=== PATIENT | male | born 1940 | race Caucasian/White ===

== ENCOUNTER 2018-05-25 08:02 | Inpatient (IN) ==
[2018-05-25] MEDS ORDERED: ALBUT/IPRATROP 3MG/0.5MG NEB 3 ML VIAL INH STA (08:24)
[2018-05-25] MEDS ORDERED: methylPREDNISolone 125 MG/2 ML VIAL IV STA (08:24)
[2018-05-25] MEDS ORDERED: NITROGLYCERIN 2% OINTMENT 30GM TUBE EXT STA (08:24)
[2018-05-25 08:40] LABS: Basophils # (auto) 0.04 K/uL (0-0.2); Basophils % (auto) 0.5 %; Eosinophils # (auto) 0.26 K/uL (0-0.5); Eosinophils % (auto) 3.1 %; Hematocrit (blood only) 44.3 % (42-52); Hemoglobin 13.5 g/dL (14.0-18.0); Immature Granulocytes # (auto) 0.02 K/uL (0.00-0.02); Immature Granulocytes % (auto) 0.2 %; Lymphocytes # (auto) 0.65 K/uL (1.2-3.4); Lymphocytes % (auto) 7.7 %; Mean Corpuscular Hgb Conc 30.5 g/dL (32-36); Mean Corpuscular Volume 95.1 fL (80-100); Mean Platelet Volume 11.7 fL (7.4-10.4); Monocytes % (auto) 7.1 %; Neutrophils # (auto) 6.83 K/uL (1.4-6.5); Neutrophils % (auto) 81.4 %; Platelet Count 156 K/uL (130-400); RDW Coefficient of Variation 17.5 % (11.5-14.5); RDW Standard Deviation 60.4 fL (36.4-46.3); Red Blood Count 4.66 M/uL (4.7-6.1)
--- NOTE | 2018-05-25 08:42 | Emergency Department Note ---
Entered by Andrew Navarro acting as a scribe for ED Provider Note CHIEF COMPLAINT: Worsening shortness of breath. HISTORY OF PRESENT ILLNESS: The patient is a 77 year old male who presents to the Emergency Room with complaints of worsening shortness of breath over the past 2 weeks. The patient presents with his who states that he was recently diagnosed with pneumonia , but has worsened since starting Augmentin. She notes that he cannot walk a short distance without becoming short of breath. EMS state that he is normally on 2L of oxygen at home, and was 90% on 3L upon their arrival. The adds that his lower extremity swelling is better than usual today, but adds that his abdomen looks signficantly bloated. There has not been any chest pain or fevers. He is coughing persistently, and the adds that there is blood in the plegm that the cough is producing. Pt denies LOC, headache, diaphoresis, neck pain, nausea, vomiting, back pain, melena, hematochezia, urinary symptoms, numbness, weakness, lymphadenopathy, rash, or other complaints. REVIEW OF SYSTEMS: See HPI for pertinent positives and negatives. A total of ten systems were reviewed and were otherwise negative. PMHx/PSHx: A-fib CAD cardiomyopathy CHF HTN LBBB Fluid overload Dyslipidemia Diabetes CKD Pulmonary Edema Liver mass Coronary artery bypass graft Anticoagulated on Coumadin SOCIAL HISTORY: Patient lives at home. PHYSICAL EXAM: GENERAL: Awake, alert, increased work of breathing on exam. HENT: Normocephalic, atraumatic. Oropharynx unremarkable. EYES: Left pupil is surgically altered. Normal conjunctiva. Sclera non-icteric. NECK: Inspection normal. Non-tender. Supple. No nuchal rigidity. FROM. No masses. RESPIRATORY: Increased work of breathing. Bilateral rales and wheezing on exam. CARDIAC: Normal rate. Irregular rhythm. No murmurs. No rubs. Extremities warm and well perfused. Pulses equal. No JVD. GI: Mildly distended. No tenderness to palpation. No rebound or guarding. No masses. RECTAL: Deferred. MUSCULOSKELETAL: Atraumatic. Chest examination reveals no tenderness. The back is symmetrical on inspection without obvious abnormality. There is no CVA tenderness to palpation. No joint edema. LOWER EXTREMITIES: Calves are equal size bilaterally and non-tender. 1+ bilateral edema. No discoloration. NEURO: Normal sensorium. No sensory or motor deficits noted. SKIN: No rash or jaundice noted. EMERGENCY DEPARTMENT COURSE: 811: Past medical records reviewed. The patient was evaluated in room B9, and a complete history and physical examination were performed. 46: I checked on the patient he is feeling better. 922: I reviewed the patient's case with Dr. Downey - [facility]. He suggests admitting the patient to medicine. 924: I reviewed the patient's case with Denise Bates [facility] Hospitalist [place]. She will evaluate the patient for further management. MEDICAL DECISION MAKING: Triage Nursing notes reviewed. The patient's presentation and history were concerning for shortness of breath and recent diagnosis of pneumonia. Etiologies such as pneumonia, reactive airway disease, CHF, cardiac ischemia, pulmonary embolism, pneumothorax, COPD, musculoskeletal, infections, gastrointestinal, as well as others were entertained. The patient had lower extremity edema, abdominal distention, and shortness of breath. He was requiring high flow supplemental oxygen to maintain saturations in the mid 90s. He had increased work of breathing. Record review indicates a similar presentation back in February 2018. He was admitted for heart failure. The patient was given a DuoNeb, Solu-Medrol due to his wheezing. He received Nitropaste. He had aspirin prehospital. His ECG did not reveal any significant changes. He was rate controlled in A. fib. Chest x-ray was performed. Blood work and flu testing was performed. The patient was found to have significant CHF on chest x-ray. This would fit with his examination. The patient was placed on BiPAP. He had significant improvement of his work of breathing. The patient's blood pressure dropped to a normal level. He felt much better. I did consult with cardiology. Dr. Downey recommended initiation of higher dose IV Lasix. The patient was given 60 mg of IV Lasix. Patient and were educated. Consultation was made with the [facility] Hospitalist service the patient was admitted for further treatment. IMPRESSION: Acute CHF on Bi-Pap PLAN: Admitted I have personally spent greater than 32 minutes of critical care time in the direct management of this patient. This includes bedside care, interpretation of diagnostic studies, and testing, discussion with consultants, patient, and family members, and other required patient management activities. This 32 minutes is in excess of all separately billable procedures. The scribe's documentation has been prepared under my direction and personally reviewed by me in its entirety. I confirm that the note above accurately reflects all work, treatment, procedures, and medical decision making performed by me. Impression & Plan Acute CHF Past Med/Surg History Medical History Atrial fibrillation (Chronic) CAD (coronary artery disease) (Chronic) Ischemic cardiomyopathy (Chronic) Echo 02/27/18 - LVEF 35 - 45% with mild to mod hypokinesis Chronic systolic heart failure (Chronic) Chronic diastolic heart failure (Chronic) HTN (hypertension) (Chronic) LBBB (left bundle branch block) (Chronic) Depression (Chronic) Dyslipidemia (Chronic) Diabetes mellitus, type II (Chronic) CKD (chronic kidney disease), stage III (Chronic) Anticoagulated on Coumadin (Chronic) Hiatal hernia (Chronic) Morbid obesity (Chronic) Uses hearing aid (Chronic) Glaucoma 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 Surgical History History of cataract removal with insertion of prosthetic lens (Chronic) History of cholecystectomy (Chronic) History of coronary artery bypass graft (Chronic) Family History Other HTN (hypertension) Lymphoma Stroke Social History Current Living Situation: Spouse Other Information That Helps Us Care for You: No Feels Safe at Home: Yes Safety Concerns: Feels Safe At This Time Smoking Status: Never smoker Do You Dip or Chew Tobacco: No Second Hand Exposure: No Tobacco Cessation Education Requested by Patient: No Hx Alcohol Use: No Hx Substance Use: No Beliefs That Will Affect Care: None Preferred Language: Mohawk Communication Ability: Effective Health Diagnostics Teacher Required: No Results & Data Vital Signs Vital Signs - 24 hr 05/25/18 08:09 05/25/18 08:12 05/25/18 08:25 Temperature 36.8 C Temperature Source Oral Sepsis Recent Fever Within 48 Hours No Sepsis Action Taken by Nursing No Action Required Pulse Rate 102 H 94 H 102 H Pulse Rate [Finger] Respiratory Rate 27 H 28 H 13 Respiratory Effort / Characteristics Labored Short of Breath Respiratory Depth Respiratory Pattern Blood Pressure 158/97 H 158/97 H Blood Pressure [Left Arm] Blood Pressure Mean 117 117 Blood Pressure Mean [Left Arm] Blood Pressure Position Sitting Blood Pressure Position [Left Arm] Pulse Oximetry 99 100 100 Oxygen Delivery Method Non-rebreather Oxygen Flow Rate 15 Fraction of Inspired Oxygen SaO2/FiO2 Ratio 05/25/18 08:30 05/25/18 08:33 05/25/18 09:00 Temperature Temperature Source Sepsis Recent Fever Within 48 Hours Sepsis Action Taken by Nursing Pulse Rate 81 78 72 Pulse Rate [Finger] Respiratory Rate 24 26 H 20 Respiratory Effort / Characteristics Respiratory Depth Respiratory Pattern Blood Pressure 132/85 Blood Pressure [Left Arm] Blood Pressure Mean 100 Blood Pressure Mean [Left Arm] Blood Pressure Position Blood Pressure Position [Left Arm] Pulse Oximetry 100 100 Oxygen Delivery Method Oxygen Flow Rate Fraction of Inspired Oxygen SaO2/FiO2 Ratio 05/25/18 09:01 05/25/18 09:02 05/25/18 09:05 Temperature Temperature Source Sepsis Recent Fever Within 48 Hours Sepsis Action Taken by Nursing Pulse Rate 79 73 Pulse Rate [Finger] 76 Respiratory Rate 20 19 21 Respiratory Effort / Characteristics Spontaneous Respiratory Depth Respiratory Pattern Blood Pressure 113/72 Blood Pressure [Left Arm] Blood Pressure Mean 85 Blood Pressure Mean [Left Arm] Blood Pressure Position Blood Pressure Position [Left Arm] Pulse Oximetry 100 98 100 Oxygen Delivery Method BiPAP BiPAP Oxygen Flow Rate Fraction of Inspired Oxygen 95 SaO2/FiO2 Ratio 05/25/18 09:06 05/25/18 09:30 05/25/18 09:31 Temperature Temperature Source Sepsis Recent Fever Within 48 Hours Sepsis Action Taken by Nursing Pulse Rate 76 72 65 Pulse Rate [Finger] Respiratory Rate 21 19 19 Respiratory Effort / Characteristics Spontaneous Respiratory Depth Normal Respiratory Pattern Regular Blood Pressure 112/65 Blood Pressure [Left Arm] Blood Pressure Mean 80 Blood Pressure Mean [Left Arm] Blood Pressure Position Blood Pressure Position [Left Arm] Pulse Oximetry 100 96 98 Oxygen Delivery Method Oxygen Flow Rate Fraction of Inspired Oxygen 35 SaO2/FiO2 Ratio 05/25/18 09:56 05/25/18 10:00 05/25/18 10:15 Temperature Temperature Source Sepsis Recent Fever Within 48 Hours Sepsis Action Taken by Nursing Pulse Rate 74 Pulse Rate [Finger] Respiratory Rate 18 Respiratory Effort / Characteristics Spontaneous Accessory Muscle Use Labored Short of Breath SOB on Exertion Respiratory Depth Shallow Respiratory Pattern Tachypnea Blood Pressure 145/74 H Blood Pressure [Left Arm] 117/84 Blood Pressure Mean 97 Blood Pressure Mean [Left Arm] 95 Blood Pressure Position Blood Pressure Position [Left Arm] Pulse Oximetry 100 99 Oxygen Delivery Method BiPAP Oxygen Flow Rate Fraction of Inspired Oxygen 35 SaO2/FiO2 Ratio 285 05/25/18 11:17 05/25/18 11:38 05/25/18 11:51 Temperature 36.4 C L Temperature Source Axillary Sepsis Recent Fever Within 48 Hours Sepsis Action Taken by Nursing Pulse Rate 72 Pulse Rate [Finger] 80 Respiratory Rate 20 20 Respiratory Effort / Characteristics Short of Breath SOB on Exertion Respiratory Depth Shallow Respiratory Pattern Regular Blood Pressure 149/114 H Blood Pressure [Left Arm] 155/82 H Blood Pressure Mean Blood Pressure Mean [Left Arm] 106 Blood Pressure Position Blood Pressure Position [Left Arm] Sitting Pulse Oximetry 100 99 Oxygen Delivery Method BiPAP BiPAP BiPAP Oxygen Flow Rate Fraction of Inspired Oxygen 30 SaO2/FiO2 Ratio 05/25/18 12:02 05/25/18 15:50 Temperature Temperature Source Sepsis Recent Fever Within 48 Hours Sepsis Action Taken by Nursing Pulse Rate 87 77 Pulse Rate [Finger] Respiratory Rate Respiratory Effort / Characteristics Short of Breath SOB on Exertion Respiratory Depth Respiratory Pattern Regular Blood Pressure Blood Pressure [Left Arm] Blood Pressure Mean Blood Pressure Mean [Left Arm] Blood Pressure Position Blood Pressure Position [Left Arm] Pulse Oximetry Oxygen Delivery Method BiPAP Oxygen Flow Rate Fraction of Inspired Oxygen SaO2/FiO2 Ratio Home Medications Current Medication List: was personally reviewed by me Laboratory Data Attestation: I reviewed the patient's lab results. Result diagrams: 05/25/18 08:25 05/25/18 08:25 Lab Results 05/25/18 05/25/18 05/25/18 Range/Units 08:25 08:25 08:25 WBC 8.40 (4.8-10.8) K/uL RBC 4.66 L (4.7-6.1) M/uL Hgb 13.5 L (14.0-18.0) g/dL Hct 44.3 (42-52) % MCV 95.1 (80-100) fL MCH 29.0 (25-34) pg MCHC 30.5 L (32-36) g/dL RDW Std Deviation 60.4 H (36.4-46.3) fL RDW Coeff of Abhinav 17.5 H (11.5-14.5) % Plt Count 156 (130-400) K/uL MPV 11.7 H (7.4-10.4) fL Immature Gran % (Auto) 0.2 % Neut % (Auto) 81.4 % Lymph % (Auto) 7.7 % [place] % (Auto) 7.1 % Eos % (Auto) 3.1 % Baso % (Auto) 0.5 % Immature Gran # (Auto) 0.02 (0.00-0.02) K/uL Neut # (Auto) 6.83 H (1.4-6.5) K/uL Lymph # (Auto) 0.65 L (1.2-3.4) K/uL [place] # (Auto) 0.60 H (0.11-0.59) K/uL Eos # (Auto) 0.26 (0-0.5) K/uL Baso # (Auto) 0.04 (0-0.2) K/uL PT 43.3 H (9.0-12.0) Seconds INR 4.7 H (0.9-1.1) APTT 40.0 H (21.0-31.0) Seconds PTT Ratio 1.5 ABG pH (7.35-7.45) ABG pCO2 (35-46) mmHg ABG pO2 (80-95) mm/Hg ABG HCO3 (19-24) mmol/L ABG O2 Saturation (90-95) % ABG Base Excess (-9-1.8) mEq/L Joshua Test (Pos) Barometric Pressure mm/Hg Oxygen Given Sodium 137 (136-145) mmol/L Potassium 4.8 (3.5-5.1) mmol/L Chloride 102 (98-107) mmol/L Carbon Dioxide 35 H (21-32) mmol/L Anion Gap 0 L (3-11) BUN 31 H (7-18) mg/dl Creatinine 1.59 H (0.6-1.4) mg/dl Est Cr Clr Drug Dosing 55.9 ml/min Est GFR ( Amer) 48.2 Est GFR (Non-Af Amer) 41.6 BUN/Creatinine Ratio 19.2 (10-20) Glucose 141 H (70-99) mg/dl POC Glucose (70-99) Calcium 8.7 (8.5-10.1) mg/dl Magnesium 2.6 H (1.8-2.4) mg/dl Total Bilirubin 0.9 (0.2-1) mg/dl AST 38 H (15-37) U/L ALT 36 (12-78) U/L Alkaline Phosphatase 101 (45-117) U/L Troponin I < 0.015 (0-0.045) ng/ml NT-Pro-B Natriuret Pep 810 (0-1800) pg/ml Total Protein 9.2 H (6.4-8.2) gm/dl Albumin 3.7 (3.4-5.0) gm/dl Globulin 5.5 H (2.5-4.0) gm/dl Albumin/Globulin Ratio 0.7 L (0.9-2) Urine Color Urine Appearance (Clear) Urine pH (4.5-7.5) Ur Specific [place] (1.000-1.030) Urine Protein (Negative) Urine Glucose (UA) (Negative) Urine Ketones (Negative) Urine Blood (Negative) Urine Nitrite (Negative) Urine Bilirubin (Negative) Urine Urobilinogen (Negative) Ur Leukocyte Esterase (Negative) Urine WBC (Auto) (0-5) /hpf Urine RBC (Auto) (0-4) /hpf U Hyaline Cast (Auto) (0-5) /lpf U Epithel Cells (Auto) (0-5) /lpf Urine Bacteria (Auto) (Negative) Influenza Type A (PCR) (Neg) Influenza Type B (PCR) (Neg) 05/25/18 05/25/18 05/25/18 Range/Units 08:27 10:40 10:55 WBC (4.8-10.8) K/uL RBC (4.7-6.1) M/uL Hgb (14.0-18.0) g/dL Hct (42-52) % MCV (80-100) fL MCH (25-34) pg MCHC (32-36) g/dL RDW Std Deviation (36.4-46.3) fL RDW Coeff of Abhinav (11.5-14.5) % Plt Count (130-400) K/uL MPV (7.4-10.4) fL Immature Gran % (Auto) % Neut % (Auto) % Lymph % (Auto) % [place] % (Auto) % Eos % (Auto) % Baso % (Auto) % Immature Gran # (Auto) (0.00-0.02) K/uL Neut # (Auto) (1.4-6.5) K/uL Lymph # (Auto) (1.2-3.4) K/uL [place] # (Auto) (0.11-0.59) K/uL Eos # (Auto) (0-0.5) K/uL Baso # (Auto) (0-0.2) K/uL PT (9.0-12.0) Seconds INR (0.9-1.1) APTT (21.0-31.0) Seconds PTT Ratio ABG pH 7.35 (7.35-7.45) ABG pCO2 59 H (35-46) mmHg ABG pO2 113 H (80-95) mm/Hg ABG HCO3 31 H (19-24) mmol/L ABG O2 Saturation 98.0 H (90-95) % ABG Base Excess 4.0 H (-9-1.8) mEq/L Joshua Test Pos (Pos) Barometric Pressure 731.0 mm/Hg Oxygen Given 30% Sodium (136-145) mmol/L Potassium (3.5-5.1) mmol/L Chloride (98-107) mmol/L Carbon Dioxide (21-32) mmol/L Anion Gap (3-11) BUN (7-18) mg/dl Creatinine (0.6-1.4) mg/dl Est Cr Clr Drug Dosing ml/min Est GFR ( Amer) Est GFR (Non-Af Amer) BUN/Creatinine Ratio (10-20) Glucose (70-99) mg/dl POC Glucose (70-99) Calcium (8.5-10.1) mg/dl Magnesium (1.8-2.4) mg/dl Total Bilirubin (0.2-1) mg/dl AST (15-37) U/L ALT (12-78) U/L Alkaline Phosphatase (45-117) U/L Troponin I (0-0.045) ng/ml NT-Pro-B Natriuret Pep (0-1800) pg/ml Total Protein (6.4-8.2) gm/dl Albumin (3.4-5.0) gm/dl Globulin (2.5-4.0) gm/dl Albumin/Globulin Ratio (0.9-2) Urine Color Yellow Urine Appearance Clear (Clear) Urine pH 7.0 (4.5-7.5) Ur Specific [place] 1.014 (1.000-1.030) Urine Protein Negative (Negative) Urine Glucose (UA) Negative (Negative) Urine Ketones Negative (Negative) Urine Blood Trace H (Negative) Urine Nitrite Negative (Negative) Urine Bilirubin Negative (Negative) Urine Urobilinogen Negative (Negative) Ur Leukocyte Esterase Negative (Negative) Urine WBC (Auto) 1-5 (0-5) /hpf Urine RBC (Auto) 5-10 H (0-4) /hpf U Hyaline Cast (Auto) 1-5 (0-5) /lpf U Epithel Cells (Auto) 10-20 H (0-5) /lpf Urine Bacteria (Auto) Negative (Negative) Influenza Type A (PCR) Neg for Influ A (Neg) Influenza Type B (PCR) Neg for Influ B (Neg) 05/25/18 Range/Units 12:48 WBC (4.8-10.8) K/uL RBC (4.7-6.1) M/uL Hgb (14.0-18.0) g/dL Hct (42-52) % MCV (80-100) fL MCH (25-34) pg MCHC (32-36) g/dL RDW Std Deviation (36.4-46.3) fL RDW Coeff of Abhinav (11.5-14.5) % Plt Count (130-400) K/uL MPV (7.4-10.4) fL Immature Gran % (Auto) % Neut % (Auto) % Lymph % (Auto) % [place] % (Auto) % Eos % (Auto) % Baso % (Auto) % Immature Gran # (Auto) (0.00-0.02) K/uL Neut # (Auto) (1.4-6.5) K/uL Lymph # (Auto) (1.2-3.4) K/uL [place] # (Auto) (0.11-0.59) K/uL Eos # (Auto) (0-0.5) K/uL Baso # (Auto) (0-0.2) K/uL PT (9.0-12.0) Seconds INR (0.9-1.1) APTT (21.0-31.0) Seconds PTT Ratio ABG pH (7.35-7.45) ABG pCO2 (35-46) mmHg ABG pO2 (80-95) mm/Hg ABG HCO3 (19-24) mmol/L ABG O2 Saturation (90-95) % ABG Base Excess (-9-1.8) mEq/L Joshua Test (Pos) Barometric Pressure mm/Hg Oxygen Given Sodium (136-145) mmol/L Potassium (3.5-5.1) mmol/L Chloride (98-107) mmol/L Carbon Dioxide (21-32) mmol/L Anion Gap (3-11) BUN (7-18) mg/dl Creatinine (0.6-1.4) mg/dl Est Cr Clr Drug Dosing ml/min Est GFR ( Amer) Est GFR (Non-Af Amer) BUN/Creatinine Ratio (10-20) Glucose (70-99) mg/dl POC Glucose 147 H (70-99) Calcium (8.5-10.1) mg/dl Magnesium (1.8-2.4) mg/dl Total Bilirubin (0.2-1) mg/dl AST (15-37) U/L ALT (12-78) U/L Alkaline Phosphatase (45-117) U/L Troponin I (0-0.045) ng/ml NT-Pro-B Natriuret Pep (0-1800) pg/ml Total Protein (6.4-8.2) gm/dl Albumin (3.4-5.0) gm/dl Globulin (2.5-4.0) gm/dl Albumin/Globulin Ratio (0.9-2) Urine Color Urine Appearance (Clear) Urine pH (4.5-7.5) Ur Specific [place] (1.000-1.030) Urine Protein (Negative) Urine Glucose (UA) (Negative) Urine Ketones (Negative) Urine Blood (Negative) Urine Nitrite (Negative) Urine Bilirubin (Negative) Urine Urobilinogen (Negative) Ur Leukocyte Esterase (Negative) Urine WBC (Auto) (0-5) /hpf Urine RBC (Auto) (0-4) /hpf U Hyaline Cast (Auto) (0-5) /lpf U Epithel Cells (Auto) (0-5) /lpf Urine Bacteria (Auto) (Negative) Influenza Type A (PCR) (Neg) Influenza Type B (PCR) (Neg) Administered Medications Aspirin (Ecotrin Ectab) 81 mg PO QDL [facility] Stop: 06/24/18 11:35 Last Admin: 05/25/18 12:40 Dose: 81 mg Metoprolol Succinate (Toprol Xl) 25 mg PO QDL [facility] Stop: 06/24/18 11:59 Last Admin: 05/25/18 12:40 Dose: 25 mg Miscellaneous (Order Awaiting Action) 1 ea N/A QS [facility] Stop: 06/24/18 11:59 Last Admin: 05/25/18 12:42 Dose: Not Given Nitroglycerin (Nitro-Bid 2%) 0.5 inch EXT Q6 [facility] Stop: 06/24/18 11:59 Last Admin: 05/25/18 12:41 Dose: 0.5 inch Discontinued Medications Albuterol (Duoneb) 3 ml INH NOW STA Stop: 05/25/18 08:25 Last Admin: 05/25/18 08:49 Dose: 3 ml Furosemide (Lasix) 60 mg IV NOW STA Stop: 05/25/18 09:26 Last Admin: 05/25/18 10:16 Dose: 60 mg Insulin Aspart (Novolog Flexpen) 0 units SC ACHS [facility] Stop: 06/24/18 11:35 Last Admin: 05/25/18 12:56 Dose: Not Given Methylprednisolone (Solumedrol) 125 mg IV NOW STA Stop: 05/25/18 08:25 Last Admin: 05/25/18 08:49 Dose: 125 mg Nitroglycerin (Nitro-Bid 2%) 0.5 inch EXT NOW STA Stop: 05/25/18 08:25 Last Admin: 05/25/18 08:48 Dose: 1 inch Imaging Data Attestation: I personally reviewed and interpreted this imaging study as follows : Radiologist's Impression: XR chest 1V portable HISTORY: 77 years-old Male Dyspnea acute shortness of breath COMPARISON: Chest radiographs 02/26/2018 TECHNIQUE: Portable AP view of the chest FINDINGS: Cardiac silhouette is enlarged. Prior median sternotomy. No pneumothorax. Small bilateral pleural effusions with bibasilar opacities. Bilateral mixed interstitial and alveolar opacities are noted with pulmonary vascular congestion. Degenerative changes of the shoulders and spine. IMPRESSION: 1. Cardiomegaly with pulmonary edema. 2. Small bilateral pleural effusions. 3. Bibasilar opacities, likely reflective of atelectasis. The above report was generated using voice recognition software. It may contain grammatical, syntax or spelling errors. Electronically signed by: Helio Poe M.D. 05/25/2018 8:48 AM ECG Data Attestation: I personally reviewed and interpreted this ECG as follows: Indication: SOB/dyspnea Rate (beats per minute): 91 Rhythm: atrial fibrillation Findings: + LBBB; no PAC and no PVC Comparison ECG Date: from (02/27/2018) Change: no significant change Blood Pressure Blood Pressure Findings: Elevated blood pressure Blood Pressure Disposition: further management by hospitalist Discharge Plan Visit Data *Final* Discharge Date/Time: 05/25/18 11:17 Chief Complaint: Shortness of Breath/Dyspnea Stated Complaint: afib/sob ED Provider: Demetris Gale Discharge Problem: Acute CHF Patient Disposition: Admitted As Inpatient Discharge Instructions Interventions: ED Discharge Assessment Last Done: 05/25/18 11:17 The scribe's documentation has been prepared under my direction and personally reviewed by me in its entirety. I confirm that the note above accurately reflects all work, treatment, procedures, and medical decision making performed by me.
--- NOTE | 2018-05-25 08:49 | XRay Report ---
XR chest 1V portable HISTORY: 77 years-old Male Dyspnea acute shortness of breath COMPARISON: Chest radiographs 02/26/2018 TECHNIQUE: Portable AP view of the chest FINDINGS: Cardiac silhouette is enlarged. Prior median sternotomy. No pneumothorax. Small bilateral pleural eff usions with bibasilar opacities. Bilateral mixed interstitial and alveolar opacities are noted with p ulmonary vascular congestion. Degenerative changes of the shoulders and spine. IMPRESSION: 1. Cardiomegaly with pulmonary edema. 2. Small bilateral pleural effusions. 3. Bibasilar opacities, likely reflective of atelectasis. The above report was generated using voice recognition software. It may contain grammatical, syntax o r spelling errors. Electronically signed by: Helio Poe M.D. 05/25/2018 8:48 AM
[2018-05-25 09:04] LABS: Alanine Aminotransferase 36 U/L (12-78); Albumin Level 3.7 gm/dl (3.4-5.0); Anion Gap 0 (3-11); Aspartate Aminotransferase 38 U/L (15-37); BUN Creatinine Ratio 19.2 (10-20); Blood Urea Nitrogen 31 mg/dl (7-18); Calcium 8.7 mg/dl (8.5-10.1); Carbon Dioxide 35 mmol/L (21-32); Chloride 102 mmol/L (98-107); Creatinine Clr Calc Pharmacy 55.9 ml/min; Est GFR (African American) 48.2; Est GFR (Non-African American) 41.6; Glucose 141 mg/dl (70-99); Magnesium 2.6 mg/dl (1.8-2.4); Potassium 4.8 mmol/L (3.5-5.1); Sodium 137 mmol/L (136-145)
[2018-05-25 09:09] LABS: Albumin Globulin Ratio 0.7 (0.9-2); Alkaline Phosphatase 101 U/L (45-117); Bilirubin,Total 0.9 mg/dl (0.2-1); Globulin 5.5 gm/dl (2.5-4.0); NT Pro B Type Natriuretic Pept 810 pg/ml (0-1800); Total Protein 9.2 gm/dl (6.4-8.2); Troponin I < 0.015 ng/ml (0-0.045)
[2018-05-25 09:18] LABS: Partial Thromboplastin Ratio 1.5; Prothrombin Time 43.3 Seconds (9.0-12.0)
[2018-05-25 09:25] LABS: Influenza A virus by PCR Neg for Influ A (Neg); Influenza B virus by PCR Neg for Influ B (Neg)
[2018-05-25] MEDS ORDERED: FUROSEMIDE 40 MG/4 ML VIAL IV STA (09:25)
[2018-05-25 09:26] LABS: INR 4.7 (0.9-1.1)
--- NOTE | 2018-05-25 10:37 | History & Physical Report ---
Date of Service May 25, 2018 Assessment & Plan (1) Acute on chronic systolic (congestive) heart failure: Pt is 77 y/o M with PMH chronic systolic heart failure, ischemic cardiomyopathy EF: 35-40%, atrial fibrillation on Coumadin, CAD s/p CABG x 4 in 2011, LBBB, CKD III, obesity, HTN, dyslipidemia, T2DM, presented to ER with complaint of shortness of breath x 2-3 weeks. En route patient was noted to be hypoxic; therefore placed on high flow O2 via NC 15L. On arrival was placed on Bipap for resp support. In ED patient wbc 8.4, h/h 13.5/44.3, plt 156, Na 137, K 4.8, bun 31, cr 1.59, mag 2.6, BNP 810. CXR consistent with pulm edema and b/l pleural effusion. Influenza negative. 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 (2) Acute respiratory failure with hypoxia: -continue Bipap support for now -monitor resp status (3) Atrial fibrillation: -rate controlled with metoprolol -anticoagulated with warfarin, supra therapeutic -current warfarin regimen 10mg MF and 7.5mg all other days -hold warfarin and repeat INR in a.m. (4) CAD (coronary artery disease): -hx of CABG x 4 in 2011 -continue ASA, statin, BB, Imdur -Troponin < 0.04 (5) HTN (hypertension): -blood pressure elevated upon admission secondary to A/C CHF -Given 60mg IV lasix in ED -continue IV lasix, topical nitrates -continue hydralazine, BB, Imdur -monitor (6) Diabetes mellitus, type II: -A1C 6.2 on 01/31/18 -hold glipizide -novolog ISS per protocol -if bgm consistently >180 add lantus coverage (7) Dyslipidemia: -continue high intensity statin therapy (8) CKD (chronic kidney disease), stage III: -baseline cr 1.7-1.9 -renal function stable at 1.5 -monitor electrolytes (9) Morbid obesity: -Dietary and lifestyle modifications recommended (10) Depression: -mood stable continue zoloft (11) DVT prophylaxis: -on warfarin, INR 4.7 -hold warfarin, repeat INR Disposition: to be determined Follow up: PCP Dr. Matias and cardiology Dr Choudhury upon discharge Patient seen in collaboration with Dr. Joyce, please see addendum History of Present Illness Chief Complaint: SOB x 2-3 weeks. Primary Care Provider: Derrell Choudhury, DO Pt is 77 y/o M with PMH chronic systolic heart failure, ischemic cardiomyopathy EF: 35-40%, atrial fibrillation on Coumadin, CAD s/p CABG x 4 in 2011, LBBB, CKD III, obesity, HTN, dyslipidemia, T2DM, presented to ER with complaint of shortness of breath x 2-3 weeks. is at bedside who provides most of history secondary to patient being on BiPAP. Approximately 2-3 weeks ago patient developed a cough, dry and increased shortness of breath. Symptoms progressed to significant COLE affecting ADLs, orthopnea, PND. Initially presented to PCP who felt symptoms may be secondary to bronchitis versus pneumonia and place patient on 2-week course of Augmentin. Chest x-ray was obtained which revealed left lower lobe pleural effusion and pulmonary edema. Patient has completed approximately 1 week course of antibiotic therapy. Patient presented to ED this morning via EMS secondary to severe hypoxia and gasping for air per . According to baseline weight approximately 299, unsure of current weight. Elicits to increase salt intake over holidays, but no significant increase in fluids. Feels patient has significantly distended abdomen, but less swelling in lower extremities. He has had decreased urinary output over past 3-4 days. Per , "I could tell he was filling with fluid." When is home patient is compliant with medications, but she does leave to visit grandchildren and notes that, "He just doesn't take care of himself." Denies documented fever, chills, sweats, chest pain, palpitations, n/v/d, melena , hematochezia, abdominal pain. Allergies Allergy/AdvReac Type Severity Reaction Status Date / Time grass pollen-perennial rye, Allergy Intermediate SHORTNESS Verified 05/25/18 08: 58 standar OF BREATH ragweed pollen Allergy Intermediate SHORTNESS Verified 05/25/18 08:58 OF BREATH oxycodone AdvReac Mild aggitation Verified 05/25/18 08:58 Home Medications Home Medications Medication Instructions Recorded Confirmed Type albuterol sulfate [Ventolin HFA] 2 puff INHALATION Q6H PRN 02/25/18 05/25/18 History aspirin [Aspir-Low] 81 mg PO QDL 02/25/18 05/25/18 History atorvastatin 80 mg PO HS 02/25/18 05/25/18 History fenofibrate micronized 67 mg PO QAM 02/25/18 05/25/18 History finasteride 5 mg PO QAM 02/25/18 05/25/18 History fluticasone [Flonase Allergy 2 spray INTRANASAL DAILY PRN 02/25/18 05/25/18 History Relief] metoprolol succinate 25 mg PO QDL 02/25/18 05/25/18 History nitroglycerin 0.4 mg SUBLINGUAL DIRECTED 02/25/18 05/25/18 History sertraline 100 mg PO HS 02/25/18 05/25/18 History warfarin 2.5 mg PO UD 02/25/18 05/25/18 History amoxicillin-pot clavulanate 1 tab PO BID 05/25/18 05/25/18 History glipizide 5 mg PO QDL 05/25/18 05/25/18 History hydralazine 10 mg PO BID 05/25/18 05/25/18 History isosorbide mononitrate 60 mg PO QAM 05/25/18 05/25/18 History torsemide 20 mg PO HS 05/25/18 05/25/18 History torsemide 40 mg PO QAM 05/25/18 05/25/18 History Past Med/Surg History Medical History Atrial fibrillation (Chronic) CAD (coronary artery disease) (Chronic) Ischemic cardiomyopathy (Chronic) Echo 02/27/18 - LVEF 35 - 45% with mild to mod hypokinesis Chronic systolic heart failure (Chronic) Chronic diastolic heart failure (Chronic) HTN (hypertension) (Chronic) LBBB (left bundle branch block) (Chronic) Depression (Chronic) Dyslipidemia (Chronic) Diabetes mellitus, type II (Chronic) CKD (chronic kidney disease), stage III (Chronic) Anticoagulated on Coumadin (Chronic) Hiatal hernia (Chronic) Morbid obesity (Chronic) Uses hearing aid (Chronic) Glaucoma 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 Surgical History History of cataract removal with insertion of prosthetic lens (Chronic) History of cholecystectomy (Chronic) History of coronary artery bypass graft (Chronic) Family History Other HTN (hypertension) Lymphoma Stroke Social History Current Living Situation: Spouse Other Information That Helps Us Care for You: No Feels Safe at Home: Yes Safety Concerns: Feels Safe At This Time Smoking Status: Never smoker Do You Dip or Chew Tobacco: No Second Hand Exposure: No Tobacco Cessation Education Requested by Patient: No Hx Alcohol Use: No Hx Substance Use: No Beliefs That Will Affect Care: None Preferred Language: Portuguese Communication Ability: Effective Motor Equipment Sergeant Required: No Review of Systems All systems reviewed & are unremarkable except as noted in HPI & below Physical Exam 2 Vital Signs (Past 24 Hours): Last Vital Signs Temp 36.8 C 05/25/18 08:25 Pulse 74 05/25/18 10:00 Resp 18 05/25/18 10:00 BP 117/84 05/25/18 10:15 Pulse Ox 99 05/25/18 10:00 Physical Exam: Gen: Morbidly obese, Male, sitting up in bed, bipap in place, + resp distress, able to answer questions approp. Head: Normocephalic, Atraumatic Eyes: Sclera normal, L eye mild conjunctival erythema, Increased pupil size L > R,EOMI ENT: Gross hearing diminished, [place], normal pharynx, mucous membranes moist Neck: supple, no adenopathy, + JVD, no bruit, no thyromegaly, Resp: +bipap, increased RR, decreased breath sounds throughout, +rhonchi, no w/ r. No accessory muscle use CV: irregular rate, irregular rhythm, no murmur, rub, ectopy Abd: +BS x 4, distended, firm, NT to palpation Musculoskeletal: moves extremities active rom x 4, good butcher scullion strength, LUE midline in place Extremities: LLE edema > R, trace - +1, mild venous stasis changes Skin: warm, moist, no rash, negative turgor, cap refill < 2sec Neuro: Alert and oriented x 3, speech slowed, diminished mood/affect, cran nerve 2-12 intact grossly : deferred Results & Data Laboratory Results Short CBC 05/25/18 Range/Units 08:25 WBC 8.40 (4.8-10.8) K/uL Hgb 13.5 L (14.0-18.0) g/dL Hct 44.3 (42-52) % Plt Count 156 (130-400) K/uL BMP 05/25/18 08:25 Sodium 137 Potassium 4.8 Chloride 102 Carbon Dioxide 35 H BUN 31 H Creatinine 1.59 H Glucose 141 H Calcium 8.7 Cardiac Enzymes 05/25/18 Range/Units 08:25 Troponin I < 0.015 (0-0.045) ng/ml Liver Function 05/25/18 Range/Units 08:25 Total Bilirubin 0.9 (0.2-1) mg/dl AST 38 H (15-37) U/L ALT 36 (12-78) U/L Alkaline Phosphatase 101 (45-117) U/L Albumin 3.7 (3.4-5.0) gm/dl Diagnostic Findings CXR today: FINDINGS: Cardiac silhouette is enlarged. Prior median sternotomy. No pneumothorax. Small bilateral pleural effusions with bibasilar opacities. Bilateral mixed interstitial and alveolar opacities are noted with pulmonary vascular congestion. Degenerative changes of the shoulders and spine. IMPRESSION: 1. Cardiomegaly with pulmonary edema. 2. Small bilateral pleural effusions. 3. Bibasilar opacities, likely reflective of atelectasis. Xray done on 05/17/17: COMPARISON CHEST 2 VIEWS dated 07/28/2017; CHEST 2 VIEWS AP OR PA AND LATERAL dated 2016; CHEST 2 VIEWS AP OR PA AND LATERAL dated 10/10/2015; CHEST 2 VIEWS AP OR PA AND LATERAL dated 09/15/2015 FINDINGS The lungs are hyperinflated. Prominent interstitial markings and peribronchial cuffing suggesting pulmonary edema. Small left pleural effusion. Cardiomediastinal silhouette is mildly enlarged, unchanged. No evidence of pneumothorax. Degenerative osseous changes. Intact sternotomy wires. IMPRESSION Constellation of findings likely represent pulmonary edema. No consolidation. I have personally reviewed this examination and agree with the resident/fellow physician's interpretation. Code Status & VTE Plan Code Status Full Code VTE Prophylaxis Plan VTE Prophylaxis will be ordered: Yes Supervising Physician Co-Signing Physician Notes Attending addendum. The patient was seen and examined in telemetry He has been complaining of more shortness of breath for the last week or so He has noted to have acute CHF chest x-ray He has been put on intravenous Lasix and admitted to telemetry On examination Moderate shortness of breath at rest Hemodynamically stable Chest-decreased breath sounds with bibasilar crackles Heart-S1-S2 regular Abdomen-distended, soft, mildly tender, bowel sounds present. Juxtnkocizp-2-2+ edema bilaterally Labs and imaging studies noted Appreciate cardiology input and recommend Agree with assessment and plan as mentioned above by Denise Conde Isiah _ (1) Atrial fibrillation Atrial fibrillation type: persistent Qualified Code(s): I48.1 - Persistent atrial fibrillation
[2018-05-25 11:08] LABS: Allen Test Pos (Pos); HCO3 ABG 31 mmol/L (19-24); PCO2 ABG 59 mmHg (35-46); PO2 ABG 113 mm/Hg (80-95); pH ABG 7.35 (7.35-7.45)
[2018-05-25 11:16] LABS: Appearance Urine Clear (Clear); Bacteria Urine Automated Negative (Negative); Bilirubin Urine Negative (Negative); Color Urine Yellow; Glucose Urine UA Negative (Negative); Ketones Urine Negative (Negative); Leukocyte Esterase Urine Negative (Negative); Nitrite Urine Negative (Negative); Protein Urine Negative (Negative); Specific Gravity Urine 1.014 (1.000-1.030); Urobilinogen Urine Negative (Negative)
[2018-05-25] MEDS ORDERED: ALUMINUM/MAGNESIUM SUSP 30 ML UDC PO PRN (11:36)
[2018-05-25] MEDS ORDERED: GLUCOSE 10 TABS/TUBE PO PRN (11:36)
[2018-05-25] MEDS ORDERED: GLUCOSE 40% GEL 15 GM TUBE PO PRN (11:36)
[2018-05-25] MEDS ORDERED: GLUCAGON FOR INJ 1 MG VIAL SQ PRN (11:36)
[2018-05-25] MEDS ORDERED: FLUTICASONE PROPIONATE NA SPR 16 GM BTL PRN (11:36)
[2018-05-25] MEDS ORDERED: INSULIN ASPART 100 UNITS/ML 3 ML PEN SC SCH ×2 (11:36→18:00)
[2018-05-25] MEDS ORDERED: CARBOHYDRATES FOR HYPOGLYCEMIA PO PRN (11:36)
[2018-05-25] MEDS ORDERED: POLYETHYLENE (MIRALAX) 17 GM PACK PO PRN (11:36)
[2018-05-25] MEDS ORDERED: NITROGLYCERIN SL 0.4 MG/TAB TAB SL PRN (11:36)
[2018-05-25] MEDS ORDERED: DEXTROSE 50% 50 ML SYRINGE IV PRN (11:36)
[2018-05-25] MEDS ORDERED: ONDANSETRON INJ 2 MG/ML 2 ML VIAL IV PRN (11:36)
[2018-05-25] MEDS ORDERED: ALBUTEROL HFA 8 GM INHALER INH PRN (11:36)
[2018-05-25] MEDS ORDERED: MAGNESIUM HYDROXIDE SUSP 30 ML UDC PO PRN (11:36)
[2018-05-25] MEDS ORDERED: ACETAMINOPHEN 325 MG TAB PO PRN (11:36)
[2018-05-25] MEDS: ASPIRIN 81 MG ECTAB PO SCH (12:40)
[2018-05-25] MEDS: METOPROLOL SUCC 25MG EXT REL TAB PO SCH (12:40)
[2018-05-25] MEDS: NITROGLYCERIN 2% OINTMENT 30GM TUBE EXT SCH ×3 (12:41→23:47)
[2018-05-25] MEDS ORDERED: Nursing to Pharmacy Communication ONE (14:58)
[2018-05-25] MEDS ORDERED: FUROSEMIDE 40 MG/4 ML VIAL IV SCH ×2 (16:00)
[2018-05-25] MEDS: FUROSEMIDE 60 MG in SYRINGE 0 ML IV SCH ×2 (16:04→20:42)
--- NOTE | 2018-05-25 17:44 | History and Physical Report ---
DATE OF ADMISSION: 05/25/2018 INPATIENT CARDIOLOGY CONSULTATION CONSULTATION REQUESTED BY: Dr. Gale. REASON FOR CONSULTATION: Acute decompensated LV systolic failure. HISTORY OF PRESENT ILLNESS: Mr. Valdivia is a very pleasant 77-year-old gentleman who normally follows with Dr. Choudhury of our cardiology practice. The patient's reports to come in to the Emergency Department today via EMS after discussion with the on-call fish bait processing supervisor. Apparently the patient's noted the patient significantly short of breath, became concerned, called the on-call fish bait processing supervisor, Dr. Hook who recommended he be evaluated to the nearest Emergency Department as soon as possible. Upon arrival to the Emergency Department, the patient was found to be significantly hypoxic and significantly volume overloaded. He was placed on BiPAP, nitropatch and IV Lasix, all of which were appropriate. He diuresed almost 1 liter in the Emergency Department for arrival to the floor and his breathing improved. Currently, the BiPAP is being weaned, he is still down to 25% O2 and he is resting comfortably. His states that around [place] time he came down with a chest cold, then developed into pneumonia, during this time he was short of breath. They chalked it up to the upper respiratory tract infection; however, he did not seem to really improve with antibiotics. Over the last week, he has really not been sleeping well. Patient states that he has been having significant orthopnea despite being propped up on pillows and just could not get a restful sleep. He has also been having significant dyspnea with any exertion along with a dry nonproductive cough. Luckily he has not complained of any chest pain, palpitations, lightheadedness, dizziness, or syncope. He has been compliant with all of his medications and his states that his dietary indiscretion around the holidays was not too bad. PAST SURGICAL HISTORY: 1. Coronary artery bypass grafting surgery x 4 in 2011 with a sequential vein graft to the diagonal, to the LAD, vein graft to the PDA and a VELASQUEZ to the OM. 2. Cataract surgery. 3. Upper endoscopy. 4. Cholecystectomy. MEDICAL ILLNESSES: 1. Coronary artery disease. 2. Ischemic cardiomyopathy, EF 40-45%. 3. Postoperative atrial flutter. 4. Morbid obesity. 5. Hypertension. 6. Chronic left bundle-branch block. 7. Dyslipidemia. 8. Stage III chronic kidney disease. FAMILY HISTORY: Noncontributory. SOCIAL HISTORY: Denies any alcohol, tobacco or recreational drug use. Lives at home with his . REVIEW OF SYSTEMS: As per HPI, all other review of systems reviewed negative at this time. ALLERGIES: 1. LOSARTAN. 2. PERCOCET. MEDICATIONS AN OUTPATIENT: 1. Imdur 60 mg daily. 2. Metoprolol succinate 25 mg daily. 3. Hydralazine 10 mg b.i.d. 4. Torsemide 40 mg b.i.d. 5. Coumadin as directed by the Coumadin clinic. 6. Atorvastatin 80 mg daily. 7. Aspirin 81 mg daily. 8. Glipizide. 9. Zoloft. 10. Proscar. PHYSICAL EXAMINATION: VITALS: Temperature 36.4, pulse 87, respiratory rate 14, blood pressure 155/82, saturating 99% on BiPAP. HEENT: Normocephalic, atraumatic. Pupils equal, round, reactive to light and accommodation. Extraocular muscles intact. Anicteric sclerae. Moist mucous membranes. NECK: No JVD, no bruit. CARDIOVASCULAR: Irregularly irregular and distant. Unable to appreciate murmurs, rubs or gallops. PULMONARY: Coarse breath sounds diffusely with scattered rhonchi. No rales or wheezing. ABDOMEN: Bowel sounds x4, soft. No rebound, guarding, tenderness. No organomegaly. EXTREMITIES: No clubbing or cyanosis. +2 bilateral lower extremity pitting edema, +2 pedal pulses bilaterally. SKIN: Warm and dry. TEST RESULTS: Chest x-ray performed in the Emergency Department read as: 1. Cardiomegaly with pulmonary edema and small bilateral pleural effusions. 2. Bibasilar opacities likely reflective of atelectasis. LABORATORY STUDIES OF SIGNIFICANCE: Sodium 137, potassium 4.8, BUN 39, creatinine 1.6, magnesium 2.6. INR 4.7. IMPRESSION: 1. Acute decompensated systolic heart failure. 2. Ischemic cardiomyopathy. 3. Coronary artery disease. 4. Morbid obesity. 5. Hypertension. 6. Hyperlipidemia. 7. Diabetes. 8. Persistent atrial fibrillation on chronic Coumadin therapy. RECOMMENDATIONS: It was my pleasure to see Mr. Valdivia in consultation today. Obviously, it appears as though the patient has been retaining fluid for quite some time given his complaints. So at this point, we will continue with diuresis. He has responded very well to the first dose of Lasix. We will continue Lasix 60 mg IV b.i.d. and follow his renal function. His BiPAP will be titrated off and will be continued on his other cardiac medications include Including his metoprolol succinate, Imdur, hydralazine, aspirin, Coumadin, and atorvastatin. A 2D echocardiogram will be repeated to make sure there are no new wall motion abnormalities. Further recommendations to follow.
[2018-05-25 19:47] LABS: BUN Creatinine Ratio 14.8 (10-20); Calcium 8.8 mg/dl (8.5-10.1); Creatinine Clr Calc Pharmacy 45.1 ml/min; Est GFR (African American) 37.2; Est GFR (Non-African American) 32.1; Potassium 4.3 mmol/L (3.5-5.1)
[2018-05-25] MEDS: ATORVASTATIN 40 MG TAB PO SCH (20:42)
[2018-05-25] MEDS: SERTRALINE HCL 100 MG TABLET PO SCH (20:42)
[2018-05-25] MEDS: HydrALAZINE 10 MG TAB PO SCH (20:42)
[2018-05-25] MEDS: INSULIN ASPART 100 UNITS/ML 3 ML PEN SC SCH (20:43)
[2018-05-26] MEDS: NITROGLYCERIN 2% OINTMENT 30GM TUBE EXT SCH ×3 (06:37→17:29)
[2018-05-26 07:58] LABS: Hematocrit (blood only) 42.8 % (42-52); Hemoglobin 13.9 g/dL (14.0-18.0); Mean Corpuscular Hgb Conc 32.5 g/dL (32-36); Mean Corpuscular Volume 92.2 fL (80-100); Mean Platelet Volume 11.7 fL (7.4-10.4); Platelet Count 132 K/uL (130-400); RDW Coefficient of Variation 16.9 % (11.5-14.5); RDW Standard Deviation 57.1 fL (36.4-46.3); Red Blood Count 4.64 M/uL (4.7-6.1); White Blood Count 9.34 K/uL (4.8-10.8)
[2018-05-26 08:06] LABS: INR 2.9 (0.9-1.1); Prothrombin Time 27.7 Seconds (9.0-12.0)
[2018-05-26] MEDS: HydrALAZINE 10 MG TAB PO SCH ×2 (08:39→20:26)
[2018-05-26] MEDS: INSULIN ASPART 100 UNITS/ML 3 ML PEN SC SCH ×4 (08:39→20:28)
[2018-05-26] MEDS: FUROSEMIDE 60 MG in SYRINGE 0 ML IV SCH ×2 (08:40→20:26)
[2018-05-26] MEDS: ISOSORBIDE MONO EXTENDED REL 60 MG TABCR PO SCH (08:40)
[2018-05-26] MEDS: FINASTERIDE 5 MG TAB PO SCH (09:22)
[2018-05-26] MEDS: METOPROLOL SUCC 25MG EXT REL TAB PO SCH (09:22)
[2018-05-26] MEDS: ASPIRIN 81 MG ECTAB PO SCH (09:22)
[2018-05-26 09:27] LABS: BUN Creatinine Ratio 19.8 (10-20); Est GFR (African American) 43.5; Est GFR (Non-African American) 37.5; Magnesium 2.7 mg/dl (1.8-2.4); Potassium 3.9 mmol/L (3.5-5.1)
--- NOTE | 2018-05-26 14:40 | Cardiology Progress Note ---
Date of Service May 26, 2018 Assessment & Plan (1) Acute on chronic systolic (congestive) heart failure: profoundly volume overloaded on presentation currently diuresing well, approaching 3 L negative breathing improving will cont with diuretics at current dose follow volume status clinically (2) Atrial fibrillation: chronic rate controlled. INR of 2.9 today, may resume warfarin initial coagulopathy due to passive congestion (3) Ischemic cardiomyopathy: stable on echocardiogram cont hydralazine/nitrate, metoprolol succinate and lasix will consider addition of spironlactone prior to discharge (4) CKD (chronic kidney disease), stage III: slightly improved from presentation despite diuresis cont to follow Subjective Pt seen and examined, states that he's feeling much better today. BiPap has been discontinued. SOB improved, not yet back to baseline. Denies cp, palpitations, lightheadedness or dizziness. Tele reviewed: atrial fibrillation with underlying LBBB Review of Systems All systems reviewed & are unremarkable except as noted in HPI & below Physical Exam 2 Vital Signs (Past 24 Hours): Last Vital Signs Temp 37 C 05/26/18 12:00 Pulse 70 05/26/18 12:00 Resp 16 05/26/18 12:00 BP 118/68 05/26/18 12:00 Pulse Ox 94 05/26/18 12:00 Physical Exam: General: Awake, alert and oriented x 3. No acute distress. HEENT: Normocephalic, atraumatic. Pupils equal, round and reactive to light and accommodation. Extraocular muscles are intact. Anicteric sclera. Moist mucous membranes. Neck: No JVD. No bruit. Cardiovascular: regularly irregular, unable to appreciate murmur, rub or gallop. Pulmonary: Decreased in B/L bases with scant crackles. No rhonchi, or wheezing. Abdomen: Bowel sounds x 4, soft. No rebound, guarding or tenderness. No organomegaly. Extremities: No clubbing, cyanosis or edema. +2 pedal pulses bilaterally. Skin: Warm and dry. _ (1) Atrial fibrillation Atrial fibrillation type: persistent Qualified Code(s): I48.1 - Persistent atrial fibrillation
--- NOTE | 2018-05-26 14:52 | Hospitalist Progress Note ---
Date of Service May 26, 2018 Assessment & Plan (1) Acute on chronic systolic (congestive) heart failure: Pt is 77 y/o M with PMH chronic systolic heart failure, ischemic cardiomyopathy EF: 35-40%, atrial fibrillation on Coumadin, CAD s/p CABG x 4 in 2011, LBBB, CKD III, obesity, HTN, dyslipidemia, T2DM, presented to ER with complaint of shortness of breath x 2-3 weeks. En route patient was noted to be hypoxic; therefore placed on high flow O2 via NC 15L. On arrival was placed on Bipap for resp support. In ED patient wbc 8.4, h/h 13.5/44.3, plt 156, Na 137, K 4.8, bun 31, cr 1.59, mag 2.6, BNP 810. CXR consistent with pulm edema and b/l pleural effusion. Influenza negative. In ED patient received IV lasix 60mg, IV methylprednisolone, Nitropaste -admited patient to PCU -consult cardiology-appreciate input and recommendation -continue lasix 60mg IV BID, adjust based on response -continue BB, topical nitrates, imdur -Clinically much better today with adequate diuresis -We will continue current dose of Lasix (2) Acute respiratory failure with hypoxia: -continue Bipap support for now -monitor resp status -Denies any shortness of breath at rest (3) Atrial fibrillation: -rate controlled with metoprolol -anticoagulated with warfarin, supra therapeutic -current warfarin regimen 10mg MF and 7.5mg all other days -hold warfarin and repeat INR in a.m. -INR is 1.9 today and will restart Coumadin (4) CAD (coronary artery disease): -hx of CABG x 4 in 2011 -continue ASA, statin, BB, Imdur -Troponin < 0.04 -No ACS (5) HTN (hypertension): -blood pressure elevated upon admission secondary to A/C CHF -Given 60mg IV lasix in ED -continue IV lasix, topical nitrates -continue hydralazine, BB, Imdur (6) Diabetes mellitus, type II: -A1C 6.2 on 01/31/18 -hold glipizide -novolog ISS per protocol -if bgm consistently >180 add lantus coverage (7) Dyslipidemia: -continue high intensity statin therapy (8) CKD (chronic kidney disease), stage III: -baseline cr 1.7-1.9 -renal function stable at 1.5 -monitor electrolytes -Creatinine has been improving and now is at baseline of 1.73 (9) Morbid obesity: -Dietary and lifestyle modifications recommended (10) Depression: -mood stable continue zoloft (11) DVT prophylaxis: -on warfarin, INR 4.7 -hold warfarin, repeat INR Disposition: to be determined Follow up: PCP Dr. Matias and cardiology Dr Choudhury upon discharge Subjective Patient was seen and examined in telemetry He has been feeling a lot better today Leg swelling and shortness of breath are better Denies any chest pain Physical Exam 2 Vital Signs (Past 24 Hours): Last Vital Signs Temp 37 C 05/26/18 12:00 Pulse 70 05/26/18 12:00 Resp 16 05/26/18 12:00 BP 118/68 05/26/18 12:00 Pulse Ox 94 05/26/18 12:00 Constitutional: WD/WN, vitals as above well developed and well nourished; no acute distress Eyes: PERRL, conjunctivae normal, anicteric sclerae ENMT: external ear and nose normal, oropharynx normal Respiratory: + respiratory distress Auscultation: + diminished lung sounds (Minimal wheezing with occasional crackles at the bases) Cardiovascular: Rate/Rhythm: regular rate and regular rhythm Heart Sounds: normal S1 and normal S2 Gastrointestinal (Abdomen): Inspection/Auscultation: abdomen normal to inspection, + abdomen distended and normal bowel sounds Percussion/Palpation : abdomen soft; abdomen nontender Neurologic: Alert, awake and oriented x3 Results & Data Laboratory Results Short CBC 05/26/18 Range/Units 07:36 WBC 9.34 (4.8-10.8) K/uL Hgb 13.9 L (14.0-18.0) g/dL Hct 42.8 (42-52) % Plt Count 132 (130-400) K/uL BMP 05/25/18 05/26/18 19:06 07:36 Sodium 138 138 Potassium 4.3 3.9 Chloride 100 100 Carbon Dioxide 31 34 H BUN 29 H 34 H Creatinine 1.97 H D 1.73 H Glucose 222 H 111 H Calcium 8.8 9.0 Medications Administered Current Inpatient Medications Acetaminophen (Tylenol) 650 mg PO Q4H PRN PRN Reason: Pain or Fever Stop: 06/24/18 11:35 Al Hydrox/Mg Hydrox/Simethicone (Maalox) 15 ml PO Q4H PRN PRN Reason: Dyspepsia Stop: 06/24/18 11:35 Albuterol (Ventolin Hfa) 2 puffs INH Q6H PRN PRN Reason: Shortness Of Breath Or Wheezing Stop: 06/24/18 11:35 Aspirin (Ecotrin Ectab) 81 mg PO QDL [facility] Stop: 06/24/18 11:35 Last Admin: 05/26/18 09:22 Dose: 81 mg Atorvastatin Calcium (Lipitor) 80 mg PO HS [facility] Stop: 06/24/18 20:59 Last Admin: 05/25/18 20:42 Dose: 80 mg Dextrose (Dextrose 50%) 25 - 50 ml IV UD PRN; Protocol PRN Reason: Hypoglycemia Protocol Stop: 06/24/18 11:35 Finasteride (Proscar) 5 mg PO QAM [facility] Stop: 06/25/18 08:59 Last Admin: 05/26/18 09:22 Dose: 5 mg Fluticasone Propionate (Flonase) 2 sprays NA DAILY PRN PRN Reason: Nasal Congestion Stop: 06/24/18 11:35 Glucagon (Glucagen) 1 mg SQ UD PRN; Protocol PRN Reason: Hypoglycemia Protocol Stop: 06/24/18 11:35 Glucose (Glucose 40%) 15 - 30 gm PO UD PRN; Protocol PRN Reason: Hypoglycemia Protocol Stop: 06/24/18 11:35 Glucose (Dex4 Glucose) 4 - 8 tabs PO UD PRN; Protocol PRN Reason: Hypoglycemia Protocol Stop: 06/24/18 11:35 Hydralazine HCl (Apresoline) 10 mg PO BID [facility] Stop: 06/24/18 20:59 Last Admin: 05/26/18 08:39 Dose: 10 mg Furosemide 60 mg/ Syringe 6 mls @ 4 mls/min IV BID [facility] Stop: 06/24/18 15:59 Last Admin: 05/26/18 08:40 Dose: 4 mls/min Insulin Aspart (Novolog Flexpen) 0 units SC ACHS [facility] Stop: 06/24/18 20:59 Last Admin: 05/26/18 12:22 Dose: 2 units Isosorbide Mononitrate (Imdur Extended Rel) 60 mg PO QAM [facility] Stop: 06/25/18 08:59 Last Admin: 05/26/18 08:40 Dose: 60 mg Magnesium Hydroxide (Milk Of Magnesia) 30 ml PO Q12H PRN PRN Reason: Constipation Stop: 06/24/18 11:35 Metoprolol Succinate (Toprol Xl) 25 mg PO QDL [facility] Stop: 06/24/18 11:59 Last Admin: 05/26/18 09:22 Dose: 25 mg Miscellaneous (Order Awaiting Action) 1 ea N/A QS [facility] Stop: 06/24/18 11:59 Last Admin: 05/26/18 08:39 Dose: Not Given Miscellaneous (Carbohydrates For Hypoglycemia) 15 - 30 gm PO UD PRN PRN Reason: Hypoglycemia Treatment Stop: 06/24/18 11:35 Nitroglycerin (Nitro-Bid 2%) 0.5 inch EXT Q6 [facility] Stop: 06/24/18 11:59 Last Admin: 05/26/18 12:23 Dose: 0.5 inch Nitroglycerin (Nitrostat) 0.4 mg SL UD PRN PRN Reason: Chest Pain Stop: 06/24/18 11:35 Ondansetron HCl (Zofran) 4 mg IV Q6H PRN PRN Reason: Nausea Stop: 06/24/18 11:35 Polyethylene Glycol (Miralax Powder Packet) 17 gm PO DAILY PRN PRN Reason: Constipation Stop: 06/24/18 11:35 Sertraline HCl (Zoloft) 100 mg PO HS [facility] Stop: 06/24/18 20:59 Last Admin: 05/25/18 20:42 Dose: 100 mg _ (1) Atrial fibrillation Atrial fibrillation type: persistent Qualified Code(s): I48.1 - Persistent atrial fibrillation
[2018-05-26] MEDS: ATORVASTATIN 40 MG TAB PO SCH (20:25)
[2018-05-26] MEDS: SERTRALINE HCL 100 MG TABLET PO SCH (20:27)
[2018-05-27] MEDS: NITROGLYCERIN 2% OINTMENT 30GM TUBE EXT SCH ×4 (00:41→16:54)
[2018-05-27] MEDS: INSULIN ASPART 100 UNITS/ML 3 ML PEN SC SCH ×4 (08:26→21:36)
[2018-05-27] MEDS: HydrALAZINE 10 MG TAB PO SCH ×2 (08:27→21:35)
[2018-05-27] MEDS: ISOSORBIDE MONO EXTENDED REL 60 MG TABCR PO SCH (08:27)
[2018-05-27] MEDS: FINASTERIDE 5 MG TAB PO SCH (08:28)
[2018-05-27] MEDS: METOPROLOL SUCC 25MG EXT REL TAB PO SCH (08:28)
[2018-05-27] MEDS: FUROSEMIDE 60 MG in SYRINGE 0 ML IV SCH ×2 (08:28→21:35)
[2018-05-27 08:36] LABS: Basophils # (auto) 0.03 K/uL (0-0.2); Basophils % (auto) 0.4 %; Eosinophils # (auto) 0.22 K/uL (0-0.5); Eosinophils % (auto) 3.1 %; Hematocrit (blood only) 42.6 % (42-52); Hemoglobin 13.4 g/dL (14.0-18.0); Immature Granulocytes # (auto) 0.01 K/uL (0.00-0.02); Immature Granulocytes % (auto) 0.1 %; Lymphocytes # (auto) 0.88 K/uL (1.2-3.4); Lymphocytes % (auto) 12.3 %; Mean Corpuscular Hgb Conc 31.5 g/dL (32-36); Mean Corpuscular Volume 92.6 fL (80-100); Mean Platelet Volume 11.7 fL (7.4-10.4); Monocytes # (auto) 0.49 K/uL (0.11-0.59); Monocytes % (auto) 6.9 %; Neutrophils # (auto) 5.51 K/uL (1.4-6.5); Neutrophils % (auto) 77.2 %; Platelet Count 139 K/uL (130-400); RDW Coefficient of Variation 16.9 % (11.5-14.5); White Blood Count 7.14 K/uL (4.8-10.8)
[2018-05-27 08:51] LABS: INR 1.9 (0.9-1.1); Prothrombin Time 18.9 Seconds (9.0-12.0)
[2018-05-27 09:06] LABS: BUN Creatinine Ratio 24.5 (10-20); Creatinine Clr Calc Pharmacy 49.4 ml/min; Est GFR (Non-African American) 36.2; Potassium 3.5 mmol/L (3.5-5.1)
[2018-05-27] MEDS: ASPIRIN 81 MG ECTAB PO SCH (09:09)
--- NOTE | 2018-05-27 12:15 | Hospitalist Progress Note ---
Date of Service May 27, 2018 Assessment & Plan (1) Acute on chronic systolic (congestive) heart failure: Pt is 77 y/o M with PMH chronic systolic heart failure, ischemic cardiomyopathy EF: 35-40%, atrial fibrillation on Coumadin, CAD s/p CABG x 4 in 2011, LBBB, CKD III, obesity, HTN, dyslipidemia, T2DM, presented to ER with complaint of shortness of breath x 2-3 weeks. En route patient was noted to be hypoxic; therefore placed on high flow O2 via NC 15L. On arrival was placed on Bipap for resp support. In ED patient wbc 8.4, h/h 13.5/44.3, plt 156, Na 137, K 4.8, bun 31, cr 1.59, mag 2.6, BNP 810. CXR consistent with pulm edema and b/l pleural effusion. Influenza negative. In ED patient received IV lasix 60mg, IV methylprednisolone, Nitropaste -admited patient to PCU -consult cardiology-appreciate input and recommendation -continue lasix 60mg IV BID, adjust based on response -continue BB, topical nitrates, imdur -Clinically much better today with adequate diuresis -We will continue current dose of Lasix -Clinically a lot better today and will continue another day of intravenous Lasix -Has been ambulating without difficulty (2) Acute respiratory failure with hypoxia: -continue Bipap support for now -monitor resp status -Denies any shortness of breath at rest -Will need to a steps oxygen saturation test before discharge (3) Atrial fibrillation: -rate controlled with metoprolol -anticoagulated with warfarin, supra therapeutic -current warfarin regimen 10mg MF and 7.5mg all other days -hold warfarin and repeat INR in a.m. -INR is 1.9 today and will restart Coumadin -Will restart Coumadin (4) CAD (coronary artery disease): -hx of CABG x 4 in 2011 -continue ASA, statin, BB, Imdur -Troponin < 0.04 -No ACS (5) HTN (hypertension): -blood pressure elevated upon admission secondary to A/C CHF -Given 60mg IV lasix in ED -continue IV lasix, topical nitrates -continue hydralazine, BB, Imdur (6) Diabetes mellitus, type II: -A1C 6.2 on 01/31/18 -hold glipizide -novolog ISS per protocol -if bgm consistently >180 add lantus coverage (7) Dyslipidemia: -continue high intensity statin therapy (8) CKD (chronic kidney disease), stage III: -baseline cr 1.7-1.9 -renal function stable at 1.5 -monitor electrolytes -Creatinine has been improving and now is at baseline of 1.73 (9) Morbid obesity: -Dietary and lifestyle modifications recommended (10) Depression: -mood stable continue zoloft (11) DVT prophylaxis: -on warfarin, INR 4.7 -hold warfarin, repeat INR Disposition: to be determined Follow up: PCP Dr. Matias and cardiology Dr Choudhury upon discharge Subjective Patient was seen and examined in telemetry He has been feeling a lot better today Leg swelling and shortness of breath are better Denies any chest pain 05/27 The patient was seen and examined in telemetry unit He has been feeling a lot better He denies any shortness of breath at rest and with ambulation He does not have any chest pain, any abdominal pain nausea and/or vomiting Physical Exam 2 Vital Signs (Past 24 Hours): Last Vital Signs Temp 36.4 C L 05/27/18 11:27 Pulse 70 05/27/18 11:27 Resp 18 05/27/18 11:27 BP 126/72 05/27/18 11:27 Pulse Ox 97 05/27/18 11:27 Constitutional: WD/WN, vitals as above well developed and well nourished; no acute distress Eyes: PERRL, conjunctivae normal, anicteric sclerae ENMT: external ear and nose normal, oropharynx normal Respiratory: normal respiratory effort Auscultation: + diminished lung sounds; no crackles and no wheezes Cardiovascular: Rate/Rhythm: regular rate and regular rhythm Heart Sounds: normal S1 and normal S2 Gastrointestinal (Abdomen): Inspection/Auscultation: abdomen normal to inspection, + abdomen distended and normal bowel sounds Percussion/Palpation : abdomen soft; abdomen nontender Results & Data Laboratory Results Short CBC 05/25/18 05/25/18 05/26/18 Range/Units 08:25 19:06 07:36 WBC (4.8-10.8) K/uL Hgb (14.0-18.0) g/dL Hct (42-52) % Plt Count (130-400) K/uL Creatinine 1.59 H 1.97 H D 1.73 H (0.6-1.4) mg/dl 05/27/18 05/27/18 Range/Units 08:13 08:13 WBC 7.14 (4.8-10.8) K/uL Hgb 13.4 L (14.0-18.0) g/dL Hct 42.6 (42-52) % Plt Count 139 (130-400) K/uL Creatinine 1.78 H (0.6-1.4) mg/dl BMP 05/27/18 08:13 Sodium 139 Potassium 3.5 Chloride 99 Carbon Dioxide 34 H BUN 44 H Creatinine 1.78 H Glucose 136 H Calcium 9.0 Medications Administered Current Inpatient Medications Acetaminophen (Tylenol) 650 mg PO Q4H PRN PRN Reason: Pain or Fever Stop: 06/24/18 11:35 Al Hydrox/Mg Hydrox/Simethicone (Maalox) 15 ml PO Q4H PRN PRN Reason: Dyspepsia Stop: 06/24/18 11:35 Albuterol (Ventolin Hfa) 2 puffs INH Q6H PRN PRN Reason: Shortness Of Breath Or Wheezing Stop: 06/24/18 11:35 Aspirin (Ecotrin Ectab) 81 mg PO QDL [facility] Stop: 06/24/18 11:35 Last Admin: 05/27/18 09:09 Dose: 81 mg Atorvastatin Calcium (Lipitor) 80 mg PO HS [facility] Stop: 06/24/18 20:59 Last Admin: 05/26/18 20:25 Dose: 80 mg Dextrose (Dextrose 50%) 25 - 50 ml IV UD PRN; Protocol PRN Reason: Hypoglycemia Protocol Stop: 06/24/18 11:35 Finasteride (Proscar) 5 mg PO QAM [facility] Stop: 06/25/18 08:59 Last Admin: 05/27/18 08:28 Dose: 5 mg Fluticasone Propionate (Flonase) 2 sprays NA DAILY PRN PRN Reason: Nasal Congestion Stop: 06/24/18 11:35 Glucagon (Glucagen) 1 mg SQ UD PRN; Protocol PRN Reason: Hypoglycemia Protocol Stop: 06/24/18 11:35 Glucose (Glucose 40%) 15 - 30 gm PO UD PRN; Protocol PRN Reason: Hypoglycemia Protocol Stop: 06/24/18 11:35 Glucose (Dex4 Glucose) 4 - 8 tabs PO UD PRN; Protocol PRN Reason: Hypoglycemia Protocol Stop: 06/24/18 11:35 Hydralazine HCl (Apresoline) 10 mg PO BID [facility] Stop: 06/24/18 20:59 Last Admin: 05/27/18 08:27 Dose: 10 mg Furosemide 60 mg/ Syringe 6 mls @ 4 mls/min IV BID [facility] Stop: 06/24/18 15:59 Last Admin: 05/27/18 08:28 Dose: 4 mls/min Insulin Aspart (Novolog Flexpen) 0 units SC ACHS [facility] Stop: 06/24/18 20:59 Last Admin: 05/27/18 08:26 Dose: 1 units Isosorbide Mononitrate (Imdur Extended Rel) 60 mg PO QAM [facility] Stop: 06/25/18 08:59 Last Admin: 05/27/18 08:27 Dose: 60 mg Magnesium Hydroxide (Milk Of Magnesia) 30 ml PO Q12H PRN PRN Reason: Constipation Stop: 06/24/18 11:35 Metoprolol Succinate (Toprol Xl) 25 mg PO QDL [facility] Stop: 06/24/18 11:59 Last Admin: 05/27/18 08:28 Dose: 25 mg Miscellaneous (Order Awaiting Action) 1 ea N/A QS [facility] Stop: 06/24/18 11:59 Last Admin: 05/27/18 08:27 Dose: Not Given Miscellaneous (Carbohydrates For Hypoglycemia) 15 - 30 gm PO UD PRN PRN Reason: Hypoglycemia Treatment Stop: 06/24/18 11:35 Nitroglycerin (Nitro-Bid 2%) 0.5 inch EXT Q6 [facility] Stop: 06/24/18 11:59 Last Admin: 05/27/18 06:08 Dose: 0.5 inch Nitroglycerin (Nitrostat) 0.4 mg SL UD PRN PRN Reason: Chest Pain Stop: 06/24/18 11:35 Ondansetron HCl (Zofran) 4 mg IV Q6H PRN PRN Reason: Nausea Stop: 06/24/18 11:35 Polyethylene Glycol (Miralax Powder Packet) 17 gm PO DAILY PRN PRN Reason: Constipation Stop: 06/24/18 11:35 Sertraline HCl (Zoloft) 100 mg PO HS [facility] Stop: 06/24/18 20:59 Last Admin: 05/26/18 20:27 Dose: 100 mg _ (1) Atrial fibrillation Atrial fibrillation type: persistent Qualified Code(s): I48.1 - Persistent atrial fibrillation
--- NOTE | 2018-05-27 12:44 | Cardiology Progress Note ---
Date of Service May 27, 2018 Assessment & Plan (1) Acute on chronic systolic (congestive) heart failure: profoundly volume overloaded on presentation currently diuresing well, approaching 3 L negative breathing improving will cont with diuretics at current dose follow volume status clinically (2) Atrial fibrillation: chronic rate controlled. INR of 2.9 today, may resume warfarin initial coagulopathy due to passive congestion (3) Ischemic cardiomyopathy: stable on echocardiogram cont hydralazine/nitrate, metoprolol succinate and lasix will consider addition of spironlactone prior to discharge (4) CKD (chronic kidney disease), stage III: slightly improved from presentation despite diuresis cont to follow (5) Pickwickian syndrome: Subjective The patient has had marked improvement in his symptoms. He is down about 14 pounds of fluid weight since admission. He continues to be in negative numbers and I would continue with the diuretics. Physical Exam 2 Vital Signs (Past 24 Hours): Last Vital Signs Temp 36.4 C L 05/27/18 11:27 Pulse 70 05/27/18 11:27 Resp 18 05/27/18 11:27 BP 126/72 05/27/18 11:27 Pulse Ox 97 05/27/18 11:27 Physical Exam: General: no acute distress and stated age Head: normocephalic, no masses, lesions, tenderness or abnormalities Eyes: conjunctiva are pink and non-injected, sclera clear Neck: supple, no adenopathy, no bruits, normal jugular venous pulse, no hepatojugular reflux Chest: normal shape and normal respiratory effort Lungs: clear to auscultation and percussion Cardiac Exam: - regular rate & rhythm, no murmurs gallops or rubs - normal S1, normal S2 Pulses: 2(+) throughout Abdomen: Obese, abdomen soft, non-tender, no abnormal masses and no hepatosplenomegaly Musculoskeletal: no gait disturbance, no joint inflammation, no deforming arthritis Extremities: no edema and no cyanosis Neuro: grossly normal exam Results & Data Laboratory Results Laboratory Results - last 24 hr 05/26/18 05/26/18 05/27/18 16:35 20:16 07:25 WBC RBC Hgb Hct MCV MCH MCHC RDW Std Deviation RDW Coeff of Abhinav Plt Count MPV Immature Gran % (Auto) Neut % (Auto) Lymph % (Auto) [place] % (Auto) Eos % (Auto) Baso % (Auto) Immature Gran # (Auto) Neut # (Auto) Lymph # (Auto) [place] # (Auto) Eos # (Auto) Baso # (Auto) PT INR Sodium Potassium Chloride Carbon Dioxide Anion Gap BUN Creatinine Est Cr Clr Drug Dosing Est GFR ( Amer) Est GFR (Non-Af Amer) BUN/Creatinine Ratio Glucose POC Glucose 121 H 118 H 116 H Calcium 05/27/18 05/27/18 05/27/18 08:13 08:13 08:13 WBC 7.14 RBC 4.60 L Hgb 13.4 L Hct 42.6 MCV 92.6 MCH 29.1 MCHC 31.5 L RDW Std Deviation 57.0 H RDW Coeff of Abhinav 16.9 H Plt Count 139 MPV 11.7 H Immature Gran % (Auto) 0.1 Neut % (Auto) 77.2 Lymph % (Auto) 12.3 [place] % (Auto) 6.9 Eos % (Auto) 3.1 Baso % (Auto) 0.4 Immature Gran # (Auto) 0.01 Neut # (Auto) 5.51 Lymph # (Auto) 0.88 L [place] # (Auto) 0.49 Eos # (Auto) 0.22 Baso # (Auto) 0.03 PT 18.9 H INR 1.9 H Sodium 139 Potassium 3.5 Chloride 99 Carbon Dioxide 34 H Anion Gap 6.0 BUN 44 H Creatinine 1.78 H Est Cr Clr Drug Dosing 49.4 Est GFR ( Amer) 42.0 Est GFR (Non-Af Amer) 36.2 BUN/Creatinine Ratio 24.5 H Glucose 136 H POC Glucose Calcium 9.0 05/27/18 11:25 WBC RBC Hgb Hct MCV MCH MCHC RDW Std Deviation RDW Coeff of Abhinav Plt Count MPV Immature Gran % (Auto) Neut % (Auto) Lymph % (Auto) [place] % (Auto) Eos % (Auto) Baso % (Auto) Immature Gran # (Auto) Neut # (Auto) Lymph # (Auto) [place] # (Auto) Eos # (Auto) Baso # (Auto) PT INR Sodium Potassium Chloride Carbon Dioxide Anion Gap BUN Creatinine Est Cr Clr Drug Dosing Est GFR ( Amer) Est GFR (Non-Af Amer) BUN/Creatinine Ratio Glucose POC Glucose 128 H Calcium Medications Administered Current Inpatient Medications Acetaminophen (Tylenol) 650 mg PO Q4H PRN PRN Reason: Pain or Fever Stop: 06/24/18 11:35 Al Hydrox/Mg Hydrox/Simethicone (Maalox) 15 ml PO Q4H PRN PRN Reason: Dyspepsia Stop: 06/24/18 11:35 Albuterol (Ventolin Hfa) 2 puffs INH Q6H PRN PRN Reason: Shortness Of Breath Or Wheezing Stop: 06/24/18 11:35 Aspirin (Ecotrin Ectab) 81 mg PO QDL [facility] Stop: 06/24/18 11:35 Last Admin: 05/27/18 09:09 Dose: 81 mg Atorvastatin Calcium (Lipitor) 80 mg PO HS [facility] Stop: 06/24/18 20:59 Last Admin: 05/26/18 20:25 Dose: 80 mg Dextrose (Dextrose 50%) 25 - 50 ml IV UD PRN; Protocol PRN Reason: Hypoglycemia Protocol Stop: 06/24/18 11:35 Finasteride (Proscar) 5 mg PO QAM [facility] Stop: 06/25/18 08:59 Last Admin: 05/27/18 08:28 Dose: 5 mg Fluticasone Propionate (Flonase) 2 sprays NA DAILY PRN PRN Reason: Nasal Congestion Stop: 06/24/18 11:35 Glucagon (Glucagen) 1 mg SQ UD PRN; Protocol PRN Reason: Hypoglycemia Protocol Stop: 06/24/18 11:35 Glucose (Glucose 40%) 15 - 30 gm PO UD PRN; Protocol PRN Reason: Hypoglycemia Protocol Stop: 06/24/18 11:35 Glucose (Dex4 Glucose) 4 - 8 tabs PO UD PRN; Protocol PRN Reason: Hypoglycemia Protocol Stop: 06/24/18 11:35 Hydralazine HCl (Apresoline) 10 mg PO BID [facility] Stop: 06/24/18 20:59 Last Admin: 05/27/18 08:27 Dose: 10 mg Furosemide 60 mg/ Syringe 6 mls @ 4 mls/min IV BID [facility] Stop: 06/24/18 15:59 Last Admin: 05/27/18 08:28 Dose: 4 mls/min Insulin Aspart (Novolog Flexpen) 0 units SC ACHS [facility] Stop: 06/24/18 20:59 Last Admin: 05/27/18 12:09 Dose: 2 units Isosorbide Mononitrate (Imdur Extended Rel) 60 mg PO QAM [facility] Stop: 06/25/18 08:59 Last Admin: 05/27/18 08:27 Dose: 60 mg Magnesium Hydroxide (Milk Of Magnesia) 30 ml PO Q12H PRN PRN Reason: Constipation Stop: 06/24/18 11:35 Metoprolol Succinate (Toprol Xl) 25 mg PO QDL [facility] Stop: 06/24/18 11:59 Last Admin: 05/27/18 08:28 Dose: 25 mg Miscellaneous (Order Awaiting Action) 1 ea N/A QS [facility] Stop: 06/24/18 11:59 Last Admin: 05/27/18 08:27 Dose: Not Given Miscellaneous (Carbohydrates For Hypoglycemia) 15 - 30 gm PO UD PRN PRN Reason: Hypoglycemia Treatment Stop: 06/24/18 11:35 Nitroglycerin (Nitro-Bid 2%) 0.5 inch EXT Q6 [facility] Stop: 06/24/18 11:59 Last Admin: 05/27/18 12:12 Dose: 0.5 inch Nitroglycerin (Nitrostat) 0.4 mg SL UD PRN PRN Reason: Chest Pain Stop: 06/24/18 11:35 Ondansetron HCl (Zofran) 4 mg IV Q6H PRN PRN Reason: Nausea Stop: 06/24/18 11:35 Polyethylene Glycol (Miralax Powder Packet) 17 gm PO DAILY PRN PRN Reason: Constipation Stop: 06/24/18 11:35 Sertraline HCl (Zoloft) 100 mg PO HS [facility] Stop: 06/24/18 20:59 Last Admin: 05/26/18 20:27 Dose: 100 mg Warfarin Sodium (Coumadin) 2.5 mg PO UD [facility] Stop: 06/26/18 12:29 _ (1) Atrial fibrillation Atrial fibrillation type: persistent Qualified Code(s): I48.1 - Persistent atrial fibrillation
[2018-05-27] MEDS: WARFARIN SOD 7.5 MG TAB PO SCH (16:51)
[2018-05-27] MEDS: ATORVASTATIN 40 MG TAB PO SCH (21:35)
[2018-05-27] MEDS: SERTRALINE HCL 100 MG TABLET PO SCH (21:35)
[2018-05-28] MEDS: NITROGLYCERIN 2% OINTMENT 30GM TUBE EXT SCH ×5 (00:11→23:44)
[2018-05-28 08:05] LABS: INR 1.6 (0.9-1.1); Prothrombin Time 15.8 Seconds (9.0-12.0)
[2018-05-28 08:27] LABS: BUN Creatinine Ratio 22.7 (10-20); Calcium 8.9 mg/dl (8.5-10.1); Creatinine Clr Calc Pharmacy 51.5 ml/min; Est GFR (African American) 44.7; Est GFR (Non-African American) 38.6; Potassium 3.8 mmol/L (3.5-5.1)
[2018-05-28] MEDS: INSULIN ASPART 100 UNITS/ML 3 ML PEN SC SCH ×4 (09:34→20:46)
[2018-05-28] MEDS: ISOSORBIDE MONO EXTENDED REL 60 MG TABCR PO SCH (09:35)
[2018-05-28] MEDS: HydrALAZINE 10 MG TAB PO SCH ×2 (09:35→20:47)
[2018-05-28] MEDS: FINASTERIDE 5 MG TAB PO SCH (09:37)
[2018-05-28] MEDS: FUROSEMIDE 60 MG in SYRINGE 0 ML IV SCH (09:37)
[2018-05-28] MEDS: ASPIRIN 81 MG ECTAB PO SCH (09:37)
[2018-05-28] MEDS: METOPROLOL SUCC 25MG EXT REL TAB PO SCH (09:38)
--- NOTE | 2018-05-28 10:48 | Cardiology Progress Note ---
Date of Service May 28, 2018 Assessment & Plan (1) Acute on chronic systolic (congestive) heart failure: Patient is markedly improved. He is lost about 20 pounds of fluid weight. I will decrease his diuretic regimen by changing it to p.o. (2) Atrial fibrillation: chronic rate controlled. Anticoagulation. (3) Ischemic cardiomyopathy: stable on echocardiogram cont hydralazine/nitrate, metoprolol succinate and lasix will consider addition of spironlactone prior to discharge (4) CKD (chronic kidney disease), stage III: slightly improved from presentation despite diuresis cont to follow (5) Pickwickian syndrome: Subjective The patient had an uneventful night. He feels well and is walking in the hallway with his . No new cardiac complaints today. Physical Exam 2 Vital Signs (Past 24 Hours): Last Vital Signs Temp 36.3 C L 05/28/18 07:30 Pulse 76 05/28/18 07:30 Resp 18 05/28/18 07:30 BP 111/73 05/28/18 07:30 Pulse Ox 98 05/28/18 07:30 Physical Exam: General: no acute distress and stated age Head: normocephalic, no masses, lesions, tenderness or abnormalities Eyes: conjunctiva are pink and non-injected, sclera clear Neck: supple, no adenopathy, no bruits, normal jugular venous pulse, no hepatojugular reflux Chest: normal shape and normal respiratory effort Lungs: clear to auscultation and percussion Cardiac Exam: - regular rate & rhythm, no murmurs gallops or rubs - normal S1, normal S2 Pulses: 2(+) throughout Abdomen: abdomen soft, non-tender, no abnormal masses and no hepatosplenomegaly Musculoskeletal: no gait disturbance, no joint inflammation, no deforming arthritis Extremities: no edema and no cyanosis Neuro: grossly normal exam Results & Data Laboratory Results Laboratory Results - last 24 hr 05/27/18 05/27/18 05/27/18 11:25 16:38 20:46 PT INR Sodium Potassium Chloride Carbon Dioxide Anion Gap BUN Creatinine Est Cr Clr Drug Dosing Est GFR ( Amer) Est GFR (Non-Af Amer) BUN/Creatinine Ratio Glucose POC Glucose 128 H 123 H 181 H Calcium 05/28/18 05/28/18 05/28/18 07:14 07:14 07:34 PT 15.8 H INR 1.6 H Sodium 140 Potassium 3.8 Chloride 98 Carbon Dioxide 37 H Anion Gap 4.0 BUN 38 H Creatinine 1.69 H Est Cr Clr Drug Dosing 51.5 Est GFR ( Amer) 44.7 Est GFR (Non-Af Amer) 38.6 BUN/Creatinine Ratio 22.7 H Glucose 119 H POC Glucose 120 H Calcium 8.9 Medications Administered Current Inpatient Medications Acetaminophen (Tylenol) 650 mg PO Q4H PRN PRN Reason: Pain or Fever Stop: 06/24/18 11:35 Al Hydrox/Mg Hydrox/Simethicone (Maalox) 15 ml PO Q4H PRN PRN Reason: Dyspepsia Stop: 06/24/18 11:35 Albuterol (Ventolin Hfa) 2 puffs INH Q6H PRN PRN Reason: Shortness Of Breath Or Wheezing Stop: 06/24/18 11:35 Aspirin (Ecotrin Ectab) 81 mg PO QDL [facility] Stop: 06/24/18 11:35 Last Admin: 05/28/18 09:37 Dose: 81 mg Atorvastatin Calcium (Lipitor) 80 mg PO HS [facility] Stop: 06/24/18 20:59 Last Admin: 05/27/18 21:35 Dose: 80 mg Dextrose (Dextrose 50%) 25 - 50 ml IV UD PRN; Protocol PRN Reason: Hypoglycemia Protocol Stop: 06/24/18 11:35 Finasteride (Proscar) 5 mg PO QAM [facility] Stop: 06/25/18 08:59 Last Admin: 05/28/18 09:37 Dose: 5 mg Fluticasone Propionate (Flonase) 2 sprays NA DAILY PRN PRN Reason: Nasal Congestion Stop: 06/24/18 11:35 Furosemide (Lasix) 40 mg PO BID17 [facility] Stop: 06/27/18 16:59 Glucagon (Glucagen) 1 mg SQ UD PRN; Protocol PRN Reason: Hypoglycemia Protocol Stop: 06/24/18 11:35 Glucose (Glucose 40%) 15 - 30 gm PO UD PRN; Protocol PRN Reason: Hypoglycemia Protocol Stop: 06/24/18 11:35 Glucose (Dex4 Glucose) 4 - 8 tabs PO UD PRN; Protocol PRN Reason: Hypoglycemia Protocol Stop: 06/24/18 11:35 Hydralazine HCl (Apresoline) 10 mg PO BID [facility] Stop: 06/24/18 20:59 Last Admin: 05/28/18 09:35 Dose: 10 mg Insulin Aspart (Novolog Flexpen) 0 units SC ACHS [facility] Stop: 06/24/18 20:59 Last Admin: 05/28/18 09:34 Dose: 2 units Isosorbide Mononitrate (Imdur Extended Rel) 60 mg PO QAM [facility] Stop: 06/25/18 08:59 Last Admin: 05/28/18 09:35 Dose: 60 mg Magnesium Hydroxide (Milk Of Magnesia) 30 ml PO Q12H PRN PRN Reason: Constipation Stop: 06/24/18 11:35 Metoprolol Succinate (Toprol Xl) 25 mg PO QDL [facility] Stop: 06/24/18 11:59 Last Admin: 05/28/18 09:38 Dose: 25 mg Miscellaneous (Order Awaiting Action) 1 ea N/A QS [facility] Stop: 06/24/18 11:59 Last Admin: 05/28/18 09:35 Dose: Not Given Miscellaneous (Carbohydrates For Hypoglycemia) 15 - 30 gm PO UD PRN PRN Reason: Hypoglycemia Treatment Stop: 06/24/18 11:35 Nitroglycerin (Nitro-Bid 2%) 0.5 inch EXT Q6 [facility] Stop: 06/24/18 11:59 Last Admin: 05/28/18 06:13 Dose: 0.5 inch Nitroglycerin (Nitrostat) 0.4 mg SL UD PRN PRN Reason: Chest Pain Stop: 06/24/18 11:35 Ondansetron HCl (Zofran) 4 mg IV Q6H PRN PRN Reason: Nausea Stop: 06/24/18 11:35 Polyethylene Glycol (Miralax Powder Packet) 17 gm PO DAILY PRN PRN Reason: Constipation Stop: 06/24/18 11:35 Sertraline HCl (Zoloft) 100 mg PO HS [facility] Stop: 06/24/18 20:59 Last Admin: 05/27/18 21:35 Dose: 100 mg Warfarin Sodium (Coumadin) 7.5 mg PO [id number]@1600 [facility] Stop: 06/26/18 15:59 Last Admin: 05/27/18 16:51 Dose: 7.5 mg Warfarin Sodium (Coumadin) 10 mg PO MoFr@1600 [facility] Stop: 02/13/19 15:59 _ (1) Atrial fibrillation Atrial fibrillation type: persistent Qualified Code(s): I48.1 - Persistent atrial fibrillation
--- NOTE | 2018-05-28 14:17 | Hospitalist Progress Note ---
Date of Service May 28, 2018 Assessment & Plan (1) Acute on chronic systolic (congestive) heart failure: Pt is 77 y/o M with PMH chronic systolic heart failure, ischemic cardiomyopathy EF: 35-40%, atrial fibrillation on Coumadin, CAD s/p CABG x 4 in 2011, LBBB, CKD III, obesity, HTN, dyslipidemia, T2DM, presented to ER with complaint of shortness of breath x 2-3 weeks. En route patient was noted to be hypoxic; therefore placed on high flow O2 via NC 15L. On arrival was placed on Bipap for resp support. In ED patient wbc 8.4, h/h 13.5/44.3, plt 156, Na 137, K 4.8, bun 31, cr 1.59, mag 2.6, BNP 810. CXR consistent with pulm edema and b/l pleural effusion. Influenza negative. In ED patient received IV lasix 60mg, IV methylprednisolone, Nitropaste -admited patient to PCU -consult cardiology-appreciate input and recommendation -continue lasix 60mg IV BID, adjust based on response -continue BB, topical nitrates, imdur -Clinically much better today with adequate diuresis -We will continue current dose of Lasix -Clinically a lot better today and will continue another day of intravenous Lasix -Has been ambulating without difficulty -We will change diuretics to oral as an outpatient -Likely to be discharged tomorrow (2) Acute respiratory failure with hypoxia: -continue Bipap support for now -monitor resp status -Denies any shortness of breath at rest -Will need to a steps oxygen saturation test before discharge -Uses 2-3 L of nasal cannula oxygen continuously as an outpatient (3) Atrial fibrillation: -rate controlled with metoprolol -anticoagulated with warfarin, supra therapeutic -current warfarin regimen 10mg MF and 7.5mg all other days -hold warfarin and repeat INR in a.m. -INR is 1.9 today and will restart Coumadin -Will restart Coumadin -Continue with Coumadin (4) CAD (coronary artery disease): -hx of CABG x 4 in 2011 -continue ASA, statin, BB, Imdur -Troponin < 0.04 -No ACS (5) HTN (hypertension): -blood pressure elevated upon admission secondary to A/C CHF -Given 60mg IV lasix in ED -continue IV lasix, topical nitrates -continue hydralazine, BB, Imdur (6) Diabetes mellitus, type II: -A1C 6.2 on 01/31/18 -hold glipizide -novolog ISS per protocol -if bgm consistently >180 add lantus coverage -Blood sugar seems to be well controlled (7) Dyslipidemia: -continue high intensity statin therapy (8) CKD (chronic kidney disease), stage III: -baseline cr 1.7-1.9 -renal function stable at 1.5 -monitor electrolytes -Creatinine has been improving and now is at baseline of 1.73 (9) Morbid obesity: -Dietary and lifestyle modifications recommended -He has pickwickian syndrome (10) Depression: -mood stable continue zoloft (11) DVT prophylaxis: -on warfarin, INR 4.7 -hold warfarin, repeat INR Disposition: to be determined Follow up: PCP Dr. Matias and cardiology Dr Choudhury upon discharge Subjective Patient was seen and examined in telemetry He has been feeling a lot better today Leg swelling and shortness of breath are better Denies any chest pain 05/27 The patient was seen and examined in telemetry unit He has been feeling a lot better He denies any shortness of breath at rest and with ambulation He does not have any chest pain, any abdominal pain nausea and/or vomiting 05/28 The patient was seen and examined in telemetry unit He has been feeling a lot better and ambulating well Diagnosed a lot and ready to be discharged tomorrow Physical Exam 2 Vital Signs (Past 24 Hours): Last Vital Signs Temp 36.9 C 05/28/18 11:54 Pulse 78 05/28/18 11:54 Resp 20 05/28/18 11:54 BP 93/56 L 05/28/18 11:54 Pulse Ox 96 05/28/18 11:54 Constitutional: WD/WN, vitals as above well developed and well nourished; no acute distress Eyes: PERRL, conjunctivae normal, anicteric sclerae ENMT: external ear and nose normal, oropharynx normal Respiratory: normal respiratory effort Auscultation: + diminished lung sounds; no crackles and no wheezes Cardiovascular: Rate/Rhythm: regular rate and regular rhythm Heart Sounds: normal S1 and normal S2 Gastrointestinal (Abdomen): Inspection/Auscultation: abdomen normal to inspection, + abdomen distended and normal bowel sounds Percussion/Palpation : abdomen soft; abdomen nontender Results & Data Laboratory Results [facility] 05/28/18 07:14 Sodium 140 Potassium 3.8 Chloride 98 Carbon Dioxide 37 H BUN 38 H Creatinine 1.69 H Glucose 119 H Calcium 8.9 Medications Administered Current Inpatient Medications Acetaminophen (Tylenol) 650 mg PO Q4H PRN PRN Reason: Pain or Fever Stop: 06/24/18 11:35 Al Hydrox/Mg Hydrox/Simethicone (Maalox) 15 ml PO Q4H PRN PRN Reason: Dyspepsia Stop: 06/24/18 11:35 Albuterol (Ventolin Hfa) 2 puffs INH Q6H PRN PRN Reason: Shortness Of Breath Or Wheezing Stop: 06/24/18 11:35 Aspirin (Ecotrin Ectab) 81 mg PO QDL [facility] Stop: 06/24/18 11:35 Last Admin: 05/28/18 09:37 Dose: 81 mg Atorvastatin Calcium (Lipitor) 80 mg PO HS [facility] Stop: 06/24/18 20:59 Last Admin: 05/27/18 21:35 Dose: 80 mg Dextrose (Dextrose 50%) 25 - 50 ml IV UD PRN; Protocol PRN Reason: Hypoglycemia Protocol Stop: 06/24/18 11:35 Finasteride (Proscar) 5 mg PO QAM [facility] Stop: 06/25/18 08:59 Last Admin: 05/28/18 09:37 Dose: 5 mg Fluticasone Propionate (Flonase) 2 sprays NA DAILY PRN PRN Reason: Nasal Congestion Stop: 06/24/18 11:35 Furosemide (Lasix) 40 mg PO BID17 [facility] Stop: 06/27/18 16:59 Glucagon (Glucagen) 1 mg SQ UD PRN; Protocol PRN Reason: Hypoglycemia Protocol Stop: 06/24/18 11:35 Glucose (Glucose 40%) 15 - 30 gm PO UD PRN; Protocol PRN Reason: Hypoglycemia Protocol Stop: 06/24/18 11:35 Glucose (Dex4 Glucose) 4 - 8 tabs PO UD PRN; Protocol PRN Reason: Hypoglycemia Protocol Stop: 06/24/18 11:35 Hydralazine HCl (Apresoline) 10 mg PO BID [facility] Stop: 06/24/18 20:59 Last Admin: 05/28/18 09:35 Dose: 10 mg Insulin Aspart (Novolog Flexpen) 0 units SC ACHS [facility] Stop: 06/24/18 20:59 Last Admin: 05/28/18 12:26 Dose: 2 units Isosorbide Mononitrate (Imdur Extended Rel) 60 mg PO QAM [facility] Stop: 06/25/18 08:59 Last Admin: 05/28/18 09:35 Dose: 60 mg Magnesium Hydroxide (Milk Of Magnesia) 30 ml PO Q12H PRN PRN Reason: Constipation Stop: 06/24/18 11:35 Metoprolol Succinate (Toprol Xl) 25 mg PO QDL [facility] Stop: 06/24/18 11:59 Last Admin: 05/28/18 09:38 Dose: 25 mg Miscellaneous (Order Awaiting Action) 1 ea N/A QS [facility] Stop: 06/24/18 11:59 Last Admin: 05/28/18 09:35 Dose: Not Given Miscellaneous (Carbohydrates For Hypoglycemia) 15 - 30 gm PO UD PRN PRN Reason: Hypoglycemia Treatment Stop: 06/24/18 11:35 Nitroglycerin (Nitro-Bid 2%) 0.5 inch EXT Q6 [facility] Stop: 06/24/18 11:59 Last Admin: 05/28/18 12:28 Dose: 0.5 inch Nitroglycerin (Nitrostat) 0.4 mg SL UD PRN PRN Reason: Chest Pain Stop: 06/24/18 11:35 Ondansetron HCl (Zofran) 4 mg IV Q6H PRN PRN Reason: Nausea Stop: 06/24/18 11:35 Polyethylene Glycol (Miralax Powder Packet) 17 gm PO DAILY PRN PRN Reason: Constipation Stop: 06/24/18 11:35 Sertraline HCl (Zoloft) 100 mg PO HS [facility] Stop: 06/24/18 20:59 Last Admin: 05/27/18 21:35 Dose: 100 mg Warfarin Sodium (Coumadin) 7.5 mg PO [id number]@1600 [facility] Stop: 06/26/18 15:59 Last Admin: 05/27/18 16:51 Dose: 7.5 mg Warfarin Sodium (Coumadin) 10 mg PO MoFr@1600 [facility] Stop: 06/28/18 15:59 _ (1) Atrial fibrillation Atrial fibrillation type: persistent Qualified Code(s): I48.1 - Persistent atrial fibrillation
[2018-05-28] MEDS: WARFARIN SOD 7.5 MG TAB PO SCH (16:54)
[2018-05-28] MEDS: FUROSEMIDE 40 MG TAB PO SCH (16:55)
[2018-05-28] MEDS: ATORVASTATIN 40 MG TAB PO SCH (20:47)
[2018-05-28] MEDS: SERTRALINE HCL 100 MG TABLET PO SCH (20:47)
[2018-05-29] MEDS: NITROGLYCERIN 2% OINTMENT 30GM TUBE EXT SCH ×2 (05:32→12:25)
[2018-05-29 07:04] LABS: BUN Creatinine Ratio 24.1 (10-20); Calcium 8.6 mg/dl (8.5-10.1); Est GFR (African American) 50.9; Est GFR (Non-African American) 43.9; Magnesium 2.5 mg/dl (1.8-2.4); Potassium 3.4 mmol/L (3.5-5.1)
[2018-05-29] MEDS: INSULIN ASPART 100 UNITS/ML 3 ML PEN SC SCH ×2 (08:07→12:24)
[2018-05-29] MEDS: HydrALAZINE 10 MG TAB PO SCH (08:08)
[2018-05-29] MEDS: ISOSORBIDE MONO EXTENDED REL 60 MG TABCR PO SCH (08:08)
[2018-05-29] MEDS: FUROSEMIDE 40 MG TAB PO SCH (08:09)
[2018-05-29] MEDS: FINASTERIDE 5 MG TAB PO SCH (08:09)
[2018-05-29] MEDS ORDERED: POTASSIUM CHLORIDE 20 MEQ TABCR PO STA (10:01)
--- NOTE | 2018-05-29 10:18 | Cardiology Progress Note ---
Date of Service May 29, 2018 Assessment & Plan (1) Acute on chronic systolic (congestive) heart failure: Patient is clinically improved having received IV diuretics, and has been transitioned back to oral diuretics. His outpatient chart as well as recent inpatient chart was reviewed. Problems: Ischemic heart disease, status post CABG March 2012 with SVG to LAD, SVG to PDA, internal mammary artery to the obtuse marginal Long-standing history of ischemic cardiomyopathy, prior LVEF in the range of 40- 44%, however this had declined to the range of 30-35% echocardiogram in February, at [facility] History of postoperative atrial flutter that had initially been treated with amiodarone, now he is in a persistent rate controlled atrial fibrillation Nuclear stress test performed in 2015 due to mild reduction in LV EF, and heart failure, normal perfusion at that time Chronic left bundle branch block, QRS duration 184 ms this admission, May 2018 Pt is eager for discharge. Recommend repeat echo today, to reassess LVEF. I reviewed the images of the 02/2018 echo indepentdently and LVEF is in the range of 30-35% with gross dyssynchronous contraction. Given ischemic cardiomyopathy, presence of left bundle branch block with QRS duration greater than 180 ms, and multiple CHF decompensation admissions, recommend that if his ejection fraction remains diminished, outpatient consultation with EP be pursued for consideration of biventricular pacemaker/AICD, as clinically he appears to be a good candidate would benefit from cardiac recent cauterization therapy. I offered pursuit of EP consultation as an inpatient, but the patient is eager for discharge. I have requested outpatient EP consult as well as follow-up with cardiology in 1 -2 weeks. Medication change: Transition back to [employer] dose of tordsemide 40 mg q am, 20 mg pm (I recommend am dose first thing in am at 7-8 am, and PM dose in early afternoon , about 1400). Per review of outpatient chart, the patient is not on an angiotensin receptor noah or an ANJUM inhibitor due to past history of hyperkalemia. His potassium recently as an outpatient has been in the low 4 range, and it has been on the lower range here, will start low-dose spironolactone 12.5 mg with caution. (2) Atrial fibrillation: (3) Ischemic cardiomyopathy: (4) CKD (chronic kidney disease), stage III: (5) Pickwickian syndrome: Subjective Chief complaint: Follow-up lower extremity edema, volume overloaded Subjective: Patient states he feels much improved. Telemetry reveals rate controlled atrial fibrillation. Review of intake and output summary reveals diuresis of 3.3 L on 05/26/18, 3.7 L on 05/27/18, 1.7 L on 05/28/18, and 3 L yesterday/overnight. Physical Exam 2 Vital Signs (Past 24 Hours): Last Vital Signs Temp 36.6 C 05/29/18 07:34 Pulse 79 05/29/18 07:34 Resp 20 05/29/18 07:34 BP 145/83 H 05/29/18 07:34 Pulse Ox 91 05/29/18 07:34 Physical Exam: General: no acute distress and stated age Eyes: conjunctiva are pink and non-injected, sclera clear Neck: normal jugular venous pulse, no hepatojugular reflux Chest: normal shape and normal respiratory effort Lungs: clear to auscultation and percussion Cardiac Exam: -Irregular rhythm, no murmurs, rubs, or gallops, no jugular venous distention Abdomen: abdomen soft, non-tender, no abnormal masses and no hepatosplenomegaly Musculoskeletal: no gait disturbance, no weakness Extremities: no edema and no cyanosis Neuro:awake, coversant, follows commands, no focal motor deficits Psych: appropriate affect and insight. Results & Data Laboratory Results INR was 1.6 on 05/28/18 Echocardiogram performed during his prior heart failure decompensation admission in February, revealed moderate to severe LV systolic dysfunction with ejection fraction in the range of 30-35%. _ (1) Atrial fibrillation Atrial fibrillation type: persistent Qualified Code(s): I48.1 - Persistent atrial fibrillation
[2018-05-29] MEDS ORDERED: SPIRONOLACTONE 25 MG TAB PO SCH (11:00)
[2018-05-29] MEDS: METOPROLOL SUCC 25MG EXT REL TAB PO SCH (12:24)
--- NOTE | 2018-05-29 12:24 | Hospitalist Progress Note ---
Date of Service May 29, 2018 Assessment & Plan (1) Acute on chronic systolic (congestive) heart failure: Pt is 77 y/o M with PMH chronic systolic heart failure, ischemic cardiomyopathy EF: 35-40%, atrial fibrillation on Coumadin, CAD s/p CABG x 4 in 2011, LBBB, CKD III, obesity, HTN, dyslipidemia, T2DM, presented to ER with complaint of shortness of breath x 2-3 weeks. En route patient was noted to be hypoxic; therefore placed on high flow O2 via NC 15L. On arrival was placed on Bipap for resp support. In ED patient wbc 8.4, h/h 13.5/44.3, plt 156, Na 137, K 4.8, bun 31, cr 1.59, mag 2.6, BNP 810. CXR consistent with pulm edema and b/l pleural effusion. Influenza negative. In ED patient received IV lasix 60mg, IV methylprednisolone, Nitropaste -admited patient to PCU -consult cardiology-appreciate input and recommendation -continue lasix 60mg IV BID, adjust based on response -continue BB, topical nitrates, imdur -Clinically much better today with adequate diuresis -We will continue current dose of Lasix -Clinically a lot better today and will continue another day of intravenous Lasix -Has been ambulating without difficulty -We will change diuretics to oral as an outpatient -Diuretics have been adjusted by the research worker kitchen -We will discharge home this afternoon (2) Acute respiratory failure with hypoxia: -continue Bipap support for now -monitor resp status -Denies any shortness of breath at rest -Will need to a steps oxygen saturation test before discharge -Uses 2-3 L of nasal cannula oxygen continuously as an outpatient -We will get to a step O2 saturation before discharge (3) Atrial fibrillation: -rate controlled with metoprolol -anticoagulated with warfarin, supra therapeutic -current warfarin regimen 10mg MF and 7.5mg all other days -hold warfarin and repeat INR in a.m. -INR is 1.9 today and will restart Coumadin -Will restart Coumadin -Continue with Coumadin -Denies any chest pain (4) CAD (coronary artery disease): -hx of CABG x 4 in 2011 -continue ASA, statin, BB, Imdur -Troponin < 0.04 -No ACS (5) HTN (hypertension): -blood pressure elevated upon admission secondary to A/C CHF -Given 60mg IV lasix in ED -continue IV lasix, topical nitrates -continue hydralazine, BB, Imdur (6) Diabetes mellitus, type II: -A1C 6.2 on 01/31/18 -hold glipizide -novolog ISS per protocol -if bgm consistently >180 add lantus coverage -Blood sugar seems to be well controlled (7) Dyslipidemia: -continue high intensity statin therapy (8) CKD (chronic kidney disease), stage III: -baseline cr 1.7-1.9 -renal function stable at 1.5 -monitor electrolytes -Creatinine has been improving and now is at baseline of 1.73 (9) Morbid obesity: -Dietary and lifestyle modifications recommended -He has pickwickian syndrome (10) Depression: -mood stable continue zoloft (11) DVT prophylaxis: -on warfarin, INR 4.7 -hold warfarin, repeat INR Disposition: to be determined Follow up: PCP Dr. Matias and cardiology Dr Choudhury upon discharge Subjective Patient was seen and examined in telemetry He has been feeling a lot better today Leg swelling and shortness of breath are better Denies any chest pain 05/27 The patient was seen and examined in telemetry unit He has been feeling a lot better He denies any shortness of breath at rest and with ambulation He does not have any chest pain, any abdominal pain nausea and/or vomiting 05/28 The patient was seen and examined in telemetry unit He has been feeling a lot better and ambulating well Diagnosed a lot and ready to be discharged tomorrow 05/29 Patient is seen and examined in telemetry unit He denies any symptoms at rest He has been walking around the hallways without any significant symptoms Wants to go home to Physical Exam 2 Vital Signs (Past 24 Hours): Last Vital Signs Temp 36.4 C L 05/29/18 11:32 Pulse 74 05/29/18 11:32 Resp 18 05/29/18 11:32 BP 111/69 05/29/18 11:32 Pulse Ox 90 05/29/18 11:32 Physical Exam: Sitting on a chair without any acute symptoms Constitutional: WD/WN, vitals as above well developed and well nourished; no acute distress Eyes: PERRL, conjunctivae normal, anicteric sclerae ENMT: external ear and nose normal, oropharynx normal Respiratory: normal respiratory effort Auscultation: + diminished lung sounds; no crackles and no wheezes Cardiovascular: Rate/Rhythm: regular rate and regular rhythm Heart Sounds: normal S1 and normal S2 Gastrointestinal (Abdomen): Inspection/Auscultation: abdomen normal to inspection, + abdomen distended and normal bowel sounds Percussion/Palpation : abdomen soft; abdomen nontender Neurologic: Alert, awake and oriented x3. Generally weak but no focal neuro deficit _ (1) Atrial fibrillation Atrial fibrillation type: persistent Qualified Code(s): I48.1 - Persistent atrial fibrillation
[2018-05-29] MEDS: ASPIRIN 81 MG ECTAB PO SCH (12:39)
[2018-05-29] MEDS ORDERED: TORSEMIDE 20 MG TAB PO SCH (14:00)
[2018-05-29] MEDS ORDERED: WARFARIN SOD 10 MG TAB PO SCH (16:00)
--- NOTE | 2018-05-30 08:31 | Discharge Summary ---
Date of Service May 30, 2018 Admission HPI Per Admitting Provider Pt is 77 y/o M with PMH chronic systolic heart failure, ischemic cardiomyopathy EF: 35-40%, atrial fibrillation on Coumadin, CAD s/p CABG x 4 in 2011, LBBB, CKD III, obesity, HTN, dyslipidemia, T2DM, presented to ER with complaint of shortness of breath x 2-3 weeks. is at bedside who provides most of history secondary to patient being on BiPAP. Approximately 2-3 weeks ago patient developed a cough, dry and increased shortness of breath. Symptoms progressed to significant COLE affecting ADLs, orthopnea, PND. Initially presented to PCP who felt symptoms may be secondary to bronchitis versus pneumonia and place patient on 2-week course of Augmentin. Chest x-ray was obtained which revealed left lower lobe pleural effusion and pulmonary edema. Patient has completed approximately 1 week course of antibiotic therapy. Patient presented to ED this morning via EMS secondary to severe hypoxia and gasping for air per . According to baseline weight approximately 299, unsure of current weight. Elicits to increase salt intake over holidays, but no significant increase in fluids. Feels patient has significantly distended abdomen, but less swelling in lower extremities. He has had decreased urinary output over past 3-4 days. Per , "I could tell he was filling with fluid." When is home patient is compliant with medications, but she does leave to visit grandchildren and notes that, "He just doesn't take care of himself." Denies documented fever, chills, sweats, chest pain, palpitations, n/v/d, melena , hematochezia, abdominal pain. Admission Exam Per Admitting Provider Vital Signs (Past 24 Hours): Last Vital Signs Temp 36.8 C 05/25/18 08:25 Pulse 74 05/25/18 10:00 Resp 18 05/25/18 10:00 BP 117/84 05/25/18 10:15 Pulse Ox 99 05/25/18 10:00 Physical Exam: Gen: Morbidly obese, Male, sitting up in bed, bipap in place , +resp distress, able to answer questions approp. Head: Normocephalic, Atraumatic Eyes: Sclera normal, L eye mild conjunctival erythema, Increased pupil size L > R,EOMI ENT: Gross hearing diminished, AFOGNAK, normal pharynx, mucous membranes moist Neck: supple, no adenopathy, + JVD, no bruit, no thyromegaly, Resp: +bipap, increased RR, decreased breath sounds throughout, +rhonchi, no w/ r. No accessory muscle use CV: irregular rate, irregular rhythm, no murmur, rub, ectopy Abd: +BS x 4, distended, firm, NT to palpation Musculoskeletal: moves extremities active rom x 4, good casing cleaner strength, LUE midline in place Extremities: LLE edema > R, trace - +1, mild venous stasis changes Skin: warm, moist, no rash, negative turgor, cap refill < 2sec Neuro: Alert and oriented x 3, speech slowed, diminished mood/affect, cran nerve 2-12 intact grossly : deferred Principal Diagnosis Acute on chronic systolic heart failure acute hypoxic respiratory failure- secondary, atrial fibrillation Discharge Exam Constitutional WD/WN, vitals as above well developed and well nourished; no acute distress Eyes PERRL, conjunctivae normal, anicteric sclerae ENMT external ear and nose normal, oropharynx normal Respiratory normal respiratory effort Auscultation: + diminished lung sounds; no crackles and no wheezes Cardiovascular Rate/Rhythm: regular rate and regular rhythm Heart Sounds: normal S1 and normal S2 Gastrointestinal (Abdomen) Inspection/Auscultation: abdomen normal to inspection, + abdomen distended and normal bowel sounds Percussion/Palpation: abdomen soft; abdomen nontender Discharge Data Allergies Allergy/AdvReac Type Severity Reaction Status Date / Time grass pollen-perennial rye, Allergy Intermediate SHORTNESS Verified 05/25/18 08: 58 standar OF BREATH ragweed pollen Allergy Intermediate SHORTNESS Verified 05/25/18 08:58 OF BREATH oxycodone AdvReac Mild aggitation Verified 05/25/18 08:58 Consultations 05/25/18 09:27 ED Decision to Admit Stat 05/25/18 10:20 Consult Cardiology Routine 05/25/18 11:36 Consult Case Management - Discharge Planning Routine Hospital Course (1) Acute on chronic systolic (congestive) heart failure: Pt is 77 y/o M with PMH chronic systolic heart failure, ischemic cardiomyopathy EF: 35-40%, atrial fibrillation on Coumadin, CAD s/p CABG x 4 in 2011, LBBB, CKD III, obesity, HTN, dyslipidemia, T2DM, presented to ER with complaint of shortness of breath x 2-3 weeks. En route patient was noted to be hypoxic; therefore placed on high flow O2 via NC 15L. On arrival was placed on Bipap for resp support. In ED patient wbc 8.4, h/h 13.5/44.3, plt 156, Na 137, K 4.8, bun 31, cr 1.59, mag 2.6, BNP 810. CXR consistent with pulm edema and b/l pleural effusion. Influenza negative. In ED patient received IV lasix 60mg, IV methylprednisolone, Nitropaste -admited patient to PCU -consult cardiology-appreciate input and recommendation -continue lasix 60mg IV BID, adjust based on response -continue BB, topical nitrates, imdur -Clinically much better today with adequate diuresis -We will continue current dose of Lasix -Clinically a lot better today and will continue another day of intravenous Lasix -Has been ambulating without difficulty -We will change diuretics to oral as an outpatient -Diuretics have been adjusted by the radiation control specialist -We will discharge home this afternoon (2) Acute respiratory failure with hypoxia: -continue Bipap support for now -monitor resp status -Denies any shortness of breath at rest -Will need to a steps oxygen saturation test before discharge -Uses 2-3 L of nasal cannula oxygen continuously as an outpatient -We will get to a step O2 saturation before discharge (3) Atrial fibrillation: -rate controlled with metoprolol -anticoagulated with warfarin, supra therapeutic -current warfarin regimen 10mg MF and 7.5mg all other days -hold warfarin and repeat INR in a.m. -INR is 1.9 today and will restart Coumadin -Will restart Coumadin -Continue with Coumadin -Denies any chest pain (4) CAD (coronary artery disease): -hx of CABG x 4 in 2012 -continue ASA, statin, BB, Imdur -Troponin < 0.04 -No ACS (5) HTN (hypertension): -blood pressure elevated upon admission secondary to A/C CHF -Given 60mg IV lasix in ED -continue IV lasix, topical nitrates -continue hydralazine, BB, Imdur (6) Diabetes mellitus, type II: -A1C 6.2 on 01/31/18 -hold glipizide -novolog ISS per protocol -if bgm consistently >180 add lantus coverage -Blood sugar seems to be well controlled (7) Dyslipidemia: -continue high intensity statin therapy (8) CKD (chronic kidney disease), stage III: -baseline cr 1.7-1.9 -renal function stable at 1.5 -monitor electrolytes -Creatinine has been improving and now is at baseline of 1.73 (9) Morbid obesity: -Dietary and lifestyle modifications recommended -He has pickwickian syndrome (10) Depression: -mood stable continue zoloft (11) DVT prophylaxis: -on warfarin, INR 4.7 -hold warfarin, repeat INR Disposition: to be determined Follow up: PCP Dr. Matias and cardiology Dr Choudhury upon discharge Total Time Total Time Spent Total Time Spent (In Minutes): 40 minutes Total Time Includes: Examination of the Patient, Discharge Planning, Medication Reconciliation and Communication With Other Providers Discharge Plan Discharge Items Patient Disposition: Home - Self-Care Reason For Visit: ACUTE HYPOXIC RESPIRATORY FAILURE Discharge Diagnosis: Acute on chronic systolic heart failure acute hypoxic respiratory failure- secondary, atrial fibrillation Condition: Fair Discharge Goals: Decrease discomfort, Improve disease control and Improve function Activity: Resume your previous activity Non-emergency contact: Primary Care Provider Call non-emergency contact if: you have any medication questions and your symptoms worsen Follow-up/Referrals: SELF,REFERRED [Staff Physician] - 06/02/18 11:00 am (Appointment is with Dr. Langford on 06/02/18 at 11 AM. Legislative Aide will call for appointment. Give following with the coagulation clinic) Diet: Heart Healthy and Low Sodium (2gm) Fluids: 1500ml (6 cups) Addtl Provider Instructions: Usual oxygen as directed. Please keep follow-up appointments Prescriptions: New spironolactone 25 mg Tablet 12.5 mg PO DAILY 30 Days Qty: 15 RF: 0 Continue atorvastatin 80 mg Tablet 80 mg PO HS RF: 0 sertraline 100 mg Tablet 100 mg PO HS RF: 0 warfarin 2.5 mg Tablet 2.5 mg PO UD RF: 0 fenofibrate micronized 67 mg Capsule 67 mg PO QAM RF: 0 aspirin [Aspir-Low] 81 mg Tablet,Delayed Release (Dr/Ec) 81 mg PO QDL RF: 0 nitroglycerin 0.4 mg Tablet, Sublingual 0.4 mg Sublingual DIRECTED RF: 0 metoprolol succinate 25 mg tablet extended release 24 hr 25 mg PO QDL RF: 0 fluticasone [Flonase Allergy Relief] 50 mcg/actuation [place],Suspension 2 spray INTRANASAL DAILY PRN (Reason: Nasal Congestion) RF: 0 finasteride 5 mg Tablet 5 mg PO QAM RF: 0 albuterol sulfate [Ventolin HFA] 90 mcg/actuation Hfa Aerosol Inhaler 2 puff INHALATION Q6H PRN (Reason: Shortness Of Breath Or Wheezing) RF: 0 hydralazine 10 mg tablet 10 mg PO BID RF: 0 torsemide 20 mg tablet 40 mg PO QAM RF: 0 glipizide 5 mg tablet extended release 24hr 5 mg PO QDL RF: 0 isosorbide mononitrate 60 mg tablet extended release 24 hr 60 mg PO QAM RF: 0 Changed torsemide 20 mg tablet 20 mg PO UD Qty: 0 RF: 0 Discontinued amoxicillin-pot clavulanate 875-125 mg tablet 1 tab PO BID RF: 0 Visit Report Forms: [facility] Portal Stand-Alone Forms: [facility] Discharge Orders: Discharge Order (Routine); Ordered 05/29/18 Ordered By: Aryan Joyce Admission Data Admit Date/Time: 05/25/18 10:26 Attending Provider: Aryan Joyce Admit Provider: Aryan Joyce Primary Care Provider: Derrell Choudhury Other Providers: Jean Paul Downey ; Christopher Stafford Service: Telemetry Other Interventions: Discharge Summary Assessment (RN) Last Done: 05/29/18 14:18 DC Date/Time DO NOT enter until pt leaves facility: 05/29/18 14:41
[2018-05-30] MEDS ORDERED: TORSEMIDE 20 MG TAB PO SCH (09:00)
== END 2018-05-29 14:41 | disposition home or self-care (01) | DRG 291 ==
LOC: ED 08:02 → 2S 10:26
DX: Z79.82 Long term (current) use of aspirin; E11.22 Type 2 diabetes mellitus with diabetic chronic kidney disease; I50.23 Acute on chronic systolic (congestive) heart failure; Z68.39 Body mass index [BMI] 39.0-39.9, adult; E78.5 Hyperlipidemia, unspecified; N18.3 Chronic kidney disease, stage 3 (moderate); F32.9 Major depressive disorder, single episode, unspecified; J96.01 Acute respiratory failure with hypoxia; E66.2 Morbid (severe) obesity with alveolar hypoventilation; Z79.899 Other long term (current) drug therapy; I48.91 Unspecified atrial fibrillation; I25.10 Atherosclerotic heart disease of native coronary artery without angina pectoris; I13.0 Hypertensive heart and chronic kidney disease with heart failure and stage 1 through stage 4 chronic kidney disease, or unspecified chronic kidney disease

== ENCOUNTER 2018-06-09 09:07 | Inpatient (IN) ==
[2018-06-09 10:26] LABS: Basophils # (auto) 0.03 K/uL (0-0.2); Basophils % (auto) 0.5 %; Eosinophils # (auto) 0.34 K/uL (0-0.5); Eosinophils % (auto) 6.1 %; Hematocrit (blood only) 39.6 % (42-52); Hemoglobin 12.5 g/dL (14.0-18.0); Immature Granulocytes # (auto) 0.01 K/uL (0.00-0.02); Immature Granulocytes % (auto) 0.2 %; Lymphocytes # (auto) 0.73 K/uL (1.2-3.4); Lymphocytes % (auto) 13.2 %; Mean Corpuscular Hgb Conc 31.6 g/dL (32-36); Mean Corpuscular Volume 93.4 fL (80-100); Mean Platelet Volume 10.7 fL (7.4-10.4); Monocytes # (auto) 0.44 K/uL (0.11-0.59); Monocytes % (auto) 7.9 %; Neutrophils % (auto) 72.1 %; Platelet Count 122 K/uL (130-400); RDW Coefficient of Variation 17.1 % (11.5-14.5); Red Blood Count 4.24 M/uL (4.7-6.1); White Blood Count 5.55 K/uL (4.8-10.8)
[2018-06-09 10:38] LABS: INR 2.5 (0.9-1.1); Partial Thromboplastin Ratio 1.3; Prothrombin Time 23.9 Seconds (9.0-12.0)
[2018-06-09 10:42] LABS: Alanine Aminotransferase 42 U/L (12-78); Albumin Level 3.4 gm/dl (3.4-5.0); Aspartate Aminotransferase 40 U/L (15-37); BUN Creatinine Ratio 16.7 (10-20); Blood Urea Nitrogen 30 mg/dl (7-18); Calcium 8.5 mg/dl (8.5-10.1); Carbon Dioxide 31 mmol/L (21-32); Chloride 102 mmol/L (98-107); Est GFR (African American) 40.9; Est GFR (Non-African American) 35.3; Glucose 119 mg/dl (70-99); Potassium 4.5 mmol/L (3.5-5.1); Sodium 139 mmol/L (136-145)
[2018-06-09 10:47] LABS: Albumin Globulin Ratio 0.7 (0.9-2); Alkaline Phosphatase 107 U/L (45-117); Bilirubin,Total 0.7 mg/dl (0.2-1); Globulin 4.8 gm/dl (2.5-4.0); Total Protein 8.2 gm/dl (6.4-8.2); Troponin I < 0.015 ng/ml (0-0.045)
--- NOTE | 2018-06-09 11:31 | XRay Report ---
SINGLE VIEW CHEST CLINICAL HISTORY: Dyspnea. FINDINGS: 2 AP, portable, upright chest radiographs are compared to study dated 05/25/2018. Correlatio n is made with chest CT dated 12/09/2010. The examination is degraded by portable technique and patien t rotation. The patient is status post midline sternotomy. The heart is enlarged and there is atheros clerotic calcification of the thoracic aorta. There is pulmonary vascular congestion and interstitial edema. There are small pleural effusions with bibasilar consolidation. No pneumothorax is seen. The skeletal structures are osteopenic. The bony thorax is grossly intact. IMPRESSION: 1. Cardiomegaly with evidence of congestive failure and interstitial edema. 2. There are small pleural effusions with bibasilar consolidation. This likely represents atelectasis and edema. Correlate clinically for evidence of superimposed pneumonia. Electronically signed by: Jarett Alarcon M.D. 06/09/2018 11:30 AM
[2018-06-09] MEDS ORDERED: FUROSEMIDE 40 MG/4 ML VIAL IV STA (12:59)
--- NOTE | 2018-06-09 13:38 | History & Physical Report ---
Date of Service June 09, 2018 Assessment & Plan (1) CHF (congestive heart failure): Acute on chronic systolic/Diastolic CHF exacerbation Chronic Oxygen Dependency: uses 1 liter supplemental O2 QHS --CXR showed:Cardiomegaly with evidence of congestive failure and interstitial edema. There are small pleural effusions with bibasilar consolidation. --Last ECHO: 05/29/18: EF:30% Hold PO diuretics Start IV Lasix 60mg BID Daily weight, I/Os, fluid restriction, low sodium diet Oxygen support PRN Monitor renal function/electrolytes Cardiology consulted Continue home meds: Metoprolol, Imdur, Hydralazine, aldactone AICD placement as per Cardiology recommendations Abdominal Distention/tightness: H/O liver Mass Prior imaging studies suggestive of Cirrhosis/HCC Check Abd USD for Ascites Consulted GI for Input Bowel regimen to prevent constipation Continue Diuretics (2) Atrial fibrillation: Rate controlled Continue Metoprolol PT/INR:2.5 Continue coumadin Monitor INR (3) CAD (coronary artery disease): H/O CABG in 2011 H/O LBBB Denies chest pain Continue home medications--Aspirin, BB, Statin, Imdur (4) Diabetes mellitus, type II: Last A1C: well controlled Hold Po meds Utilize ISS, lantus while hospitalized monitor BGs (5) CKD (chronic kidney disease), stage III: Baseline cr 1.7-1.9 Cr: 1.82 Monitor renal function while on diuretics Avoid Nephrotoxic agents as able (6) Morbid obesity: Life style changes HTN: Stable Continue home meds BPH: No issues Continue home meds DVT Px: On Coumadin Code Status: Full/DNI only-- as per my discussion with patient History of Present Illness Chief Complaint: Shortness of Breath Primary Care Provider: Derrell Mitchell DO Patient is a 77-year-old male with past medical history of chronic Systolic/ diastolic CHF, ischemic cardiomyopathy, afib, DM II, CAD S/P CABG, Chronic LBBB , CKD III, HTN, dyslipidemia, morbid obesity, BPH, Hepatic mass and other problems presents with history of worsening shortness of breath on minimal exertion, weight gain, orthopnea, PND and abdominal distention/tightness. Patient was recently discharged from [facility] after being treated for CHF exacerbation. Patient and his family reports that patient gained 4 pounds in last 2 days and has been feeling more SOB and has been using more oxygen. He increased his torsemide dose at home--took 100mg for 2 days which did not help. Patient's spouse believes that lasix worked better and since being on Torsemide , his urine output has decreased compared to while on lasix. He reports SOB even with minimal exertion and feels his abdomen is more distended and tight. No worsening of pedal edema. He is planned for AICD placement as per patient's family. Denies any history of chest pain, dizziness, cough, wheezing, headache , change in vision, nausea, vomiting, abdominal pain, diarrhea, dysuria. Allergies Allergy/AdvReac Type Severity Reaction Status Date / Time grass pollen-perennial rye, Allergy Intermediate SHORTNESS Verified 06/09/18 13: 53 standar OF BREATH ragweed pollen Allergy Intermediate SHORTNESS Verified 06/09/18 13:53 OF BREATH oxycodone AdvReac Mild aggitation Verified 06/09/18 13:53 Home Medications Home Medications Medication Instructions Recorded Confirmed Type albuterol sulfate [Ventolin HFA] 2 puff INHALATION Q6H PRN 02/25/18 06/09/18 History aspirin [Aspir-Low] 81 mg PO QDL 02/25/18 06/09/18 History atorvastatin 80 mg PO HS 02/25/18 06/09/18 History fenofibrate micronized 67 mg PO QAM 02/25/18 06/09/18 History finasteride 5 mg PO QAM 02/25/18 06/09/18 History fluticasone [Flonase Allergy 2 spray INTRANASAL DAILY PRN 02/25/18 06/09/18 History Relief] metoprolol succinate 25 mg PO QDL 02/25/18 06/09/18 History nitroglycerin 0.4 mg SUBLINGUAL DIRECTED PRN 02/25/18 06/09/18 History sertraline 100 mg PO HS 02/25/18 06/09/18 History warfarin 2.5 mg PO UD 02/25/18 06/09/18 History glipizide 5 mg PO QDL 05/25/18 06/09/18 History hydralazine 10 mg PO BID 05/25/18 06/09/18 History isosorbide mononitrate 60 mg PO QAM 05/25/18 06/09/18 History torsemide 40 mg PO QAM 05/25/18 06/09/18 History spironolactone 12.5 mg PO DAILY 30 Days #15 tab 05/29/18 06/09/18 Rx torsemide 20 mg PO UD #0 tab 05/29/18 06/09/18 Rx Past Med/Surg History Medical History Pulmonary edema (Acute) Hypoxia (Acute) Bundle branch block, left (Acute) Liver mass (Acute) Fluid overload Acute on chronic systolic (congestive) heart failure DVT prophylaxis Acute respiratory failure with hypoxia Pickwickian syndrome Atrial fibrillation (Chronic) unsure of initial onset (had > 1 year ago per medical record) - on coumadin CAD (coronary artery disease) (Chronic) Ischemic cardiomyopathy (Chronic) Chronic systolic heart failure (Chronic) Chronic diastolic heart failure (Chronic) HTN (hypertension) (Chronic) LBBB (left bundle branch block) (Chronic) Depression (Chronic) Dyslipidemia (Chronic) Diabetes mellitus, type II (Chronic) NIDDM CKD (chronic kidney disease), stage III (Chronic) Anticoagulated on Coumadin (Chronic) Hiatal hernia (Chronic) Morbid obesity (Chronic) Uses hearing aid (Chronic) Congestive heart failure Esophageal varices Fatty liver Glaucoma 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 mitchell History of cardiac cath 2011 - [facility] - [place] --> CABG - follows w/ dr. mitchell History of esophagogastroduodenoscopy (EGD) History of thoracentesis Family History Other HTN (hypertension) Lymphoma Stroke Social History marital status: Current Living Situation: Spouse Feels Safe at Home: Yes Smoking Status: Never smoker Second Hand Exposure: No Hx Alcohol Use: No Hx Substance Use: No Beliefs That Will Affect Care: None Preferred Language: Libyan Review of Systems All systems reviewed & are unremarkable except as noted in HPI & below Physical Exam 2 Vital Signs (Past 24 Hours): Last Vital Signs Temp 36.4 C L 06/09/18 09:16 Pulse 64 06/09/18 13:00 Resp 18 06/09/18 13:00 BP 128/75 06/09/18 13:00 Pulse Ox 100 06/09/18 13:00 Physical Exam: Physical Exam: Vitals signs as noted above General Appearance:Morbidly Obese, no apparent distress Head: normocephalic, Atraumatic Eyes: normal inspection, EOMI, Left eye chronic blurry vision Neck: supple, Trachea midline Respiratory/Chest: Normal breath sounds, basal crackles Cardiovascular: Irregularly Irregular, No murmur Abdomen/GI:Soft, Non tender, +distended, Bowel sounds present Extremities/Musculoskelatal:normal inspection, Trace B/L pedal edema Neurologic/Psych:AAOX3, grossly no focal neurological deficits Skin: normal color, warm, Vertical well healed CABG scar on Chest Results & Data Laboratory Results Short CBC 06/09/18 Range/Units 10:10 WBC 5.55 (4.8-10.8) K/uL Hgb 12.5 L (14.0-18.0) g/dL Hct 39.6 L (42-52) % Plt Count 122 L (130-400) K/uL BMP 06/09/18 10:10 Sodium 139 Potassium 4.5 Chloride 102 Carbon Dioxide 31 BUN 30 H Creatinine 1.82 H Glucose 119 H Calcium 8.5 Cardiac Enzymes 06/09/18 Range/Units 10:10 Troponin I < 0.015 (0-0.045) ng/ml Liver Function 06/09/18 Range/Units 10:10 Total Bilirubin 0.7 (0.2-1) mg/dl AST 40 H (15-37) U/L ALT 42 (12-78) U/L Alkaline Phosphatase 107 (45-117) U/L Albumin 3.4 (3.4-5.0) gm/dl Diagnostic Findings CXR: 1. Cardiomegaly with evidence of congestive failure and interstitial edema. 2. There are small pleural effusions with bibasilar consolidation. This likely represents atelectasis and edema. Correlate clinically for evidence of superimposed pneumonia. Medications Administered Home Medications Medication Instructions Recorded Confirmed albuterol sulfate [Ventolin HFA] 2 puff INHALATION Q6H PRN 02/25/18 06/09/18 aspirin [Aspir-Low] 81 mg PO QDL 02/25/18 06/09/18 atorvastatin 80 mg PO 02/25/18 06/09/18 fenofibrate micronized 67 mg PO QAM 02/25/18 06/09/18 finasteride 5 mg PO QAM 02/25/18 06/09/18 fluticasone [Flonase Allergy 2 spray INTRANASAL DAILY PRN 02/25/18 06/09/18 Relief] metoprolol succinate 25 mg PO QDL 02/25/18 06/09/18 nitroglycerin 0.4 mg SUBLINGUAL DIRECTED PRN 02/25/18 06/09/18 sertraline 100 mg PO 02/25/18 06/09/18 warfarin 2.5 mg PO UD 02/25/18 06/09/18 glipizide 5 mg PO QDL 05/25/18 06/09/18 hydralazine 10 mg PO BID 05/25/18 06/09/18 isosorbide mononitrate 60 mg PO QAM 05/25/18 06/09/18 torsemide 40 mg PO QAM 05/25/18 06/09/18 Previous Rx's Medication Instructions Recorded spironolactone 12.5 mg PO DAILY 30 Days #15 tab 05/29/18 torsemide 20 mg PO UD #0 tab 05/29/18 ECG Additional Comments: EKG: Afib, LBBB, QTC: 522 _ (1) CHF (congestive heart failure) Heart failure chronicity: acute on chronic Heart failure type: unspecified Qualified Code(s): I50.9 - Heart failure, unspecified (2) Atrial fibrillation Atrial fibrillation type: persistent Qualified Code(s): I48.1 - Persistent atrial fibrillation
[2018-06-09] MEDS ORDERED: GLUCOSE 40% GEL 15 GM TUBE PO PRN (17:42)
[2018-06-09] MEDS ORDERED: GLUCOSE 10 TABS/TUBE PO PRN (17:42)
[2018-06-09] MEDS ORDERED: DEXTROSE 50% 50 ML SYRINGE IV PRN (17:42)
[2018-06-09] MEDS ORDERED: FLUTICASONE PROPIONATE NA SPR 16 GM BTL PRN (17:42)
[2018-06-09] MEDS ORDERED: NITROGLYCERIN SL 0.4 MG/TAB TAB SL PRN (17:42)
[2018-06-09] MEDS ORDERED: GLUCAGON FOR INJ 1 MG VIAL SQ PRN (17:42)
[2018-06-09] MEDS ORDERED: CARBOHYDRATES FOR HYPOGLYCEMIA PO PRN (17:42)
[2018-06-09] MEDS ORDERED: POLYETHYLENE (MIRALAX) 17 GM PACK PO PRN (17:42)
[2018-06-09] MEDS ORDERED: ACETAMINOPHEN 325 MG TAB PO PRN (17:42)
[2018-06-09] MEDS ORDERED: ALBUT/IPRATROP 3MG/0.5MG NEB 3 ML VIAL NEB PRN (17:42)
[2018-06-09] MEDS: INSULIN ASPART 100 UNITS/ML 3 ML PEN SC SCH ×2 (18:16→20:32)
[2018-06-09] MEDS: WARFARIN SOD 7.5 MG TAB PO SCH (18:39)
--- NOTE | 2018-06-09 19:01 | Cardiology Consultation ---
Date of Consultation June 09, 2018 Assessment & Plan (1) Acute on chronic systolic (congestive) heart failure: (2) Ischemic cardiomyopathy: Per review of records, the patient weighed 131 kg at time of discharge on , and his recorded weight today was 129 kg. During last admission he had diuresed well with 60 mg of furosemide twice daily. A Mcneil catheter had been placed. He received a dose of 40 mgIV furosemide in the emergency room this morning in addition to his 40 mg of oral torsemide this morning. We will proceed with 60 mg IV two times per day at 7 am and 1400 starting tomorrow. No Mcneil catheter for now, but Can be considered on reassessment. The patient is tentatively scheduled to have a biventricular pacemaker AICD placed with Dr Walker at [facility] on 06/14/18. Be imperative to optimize his heart failure prior to the procedure as much as possible. So that he will be able to lie supine for the procedure comfortably. (3) Atrial fibrillation: Chronic atrial fibrillation. Currently rate controlled. INR is therapeutic today at 2.5. Continue Coumadin. We will need to coordinate anticoagulation plan with electrophysiology service regarding goal INR for the procedure. (4) Bundle branch block, left: QRS of 180 ms, planning for cardiac recent cauterization therapy. (5) Liver mass: Patient has a history of a 4.1 cm left hepatic lobe mass. Per review of his outpatient chart, Dr. Wood of Recommended arrangement with the hepatology service at [facility] to discuss possible liver biopsy.This is been delayed due to the patient's multiple heart failure admissions. And an appointment is tentatively scheduled for June as an outpatient. History of Present Illness Attending Physician: Aryan Joyce MD History of Present Illness Bryce Valdivia is a 77 year old male seen in cardiology consultation per the request of Dr Arias of the emergency department For the evaluation of congestive heart failure.The patient's primary compressor assembler is Dr. Derrell Mitchell of our practice.The patient had recently been admitted to the [facility] from 05/25/18 until 05/30/18 for significant volume overload. He diuresed approximately 20 pounds of water weight during that admission.I had actually seen him the very last day of that admission on and therefore I am acquainted with his recent and past history. He was ultimately discharged on torsemide 40 mg daily in the a.m. and 20 mg daily in the afternoon. Last weekend I received a telephone call from his spouse stating that his legs were becoming more swollen again. I therefore directed the patient to increase the torsemide to 40 mg 2 times per day for 3 days. The patient had since been seen in our office and further titration of his medications was made. Yesterday his weight had increased and he is feeling worse he took a total of 100 mg of torsemide therefore on 06/08/18 as an outpatient. Despite this he still felt short of breath with increased abdominal bloating and had a 4 pound weight gain over 2 days. Cardiology Problems: Ischemic heart disease, status post CABG March 2012 with SVG to LAD, SVG to PDA, internal mammary artery to the obtuse marginal Long-standing history of ischemic cardiomyopathy, prior LVEF in the range of 40- 44%, however this had declined to the range of 30-35% echocardiogram in February, at [facility] History of postoperative atrial flutter that had initially been treated with amiodarone, now he is in a persistent rate controlled atrial fibrillation Nuclear stress test performed in 2015 due to mild reduction in LV EF, and heart failure, normal perfusion at that time Chronic left bundle branch block, QRS duration 184 ms this admission, May 2018 Allergies Allergy/AdvReac Type Severity Reaction Status Date / Time grass pollen-perennial rye, Allergy Intermediate SHORTNESS Verified 06/09/18 13: 53 standar OF BREATH ragweed pollen Allergy Intermediate SHORTNESS Verified 06/09/18 13:53 OF BREATH oxycodone AdvReac Mild aggitation Verified 06/09/18 13:53 Home Medications Home Medications Medication Instructions Recorded Confirmed Type albuterol sulfate [Ventolin HFA] 2 puff INHALATION Q6H PRN 02/25/18 06/09/18 History aspirin [Aspir-Low] 81 mg PO QDL 02/25/18 06/09/18 History atorvastatin 80 mg PO HS 02/25/18 06/09/18 History fenofibrate micronized 67 mg PO QAM 02/25/18 06/09/18 History finasteride 5 mg PO QAM 02/25/18 06/09/18 History fluticasone [Flonase Allergy 2 spray INTRANASAL DAILY PRN 02/25/18 06/09/18 History Relief] metoprolol succinate 25 mg PO QDL 02/25/18 06/09/18 History nitroglycerin 0.4 mg SUBLINGUAL DIRECTED PRN 02/25/18 06/09/18 History sertraline 100 mg PO HS 02/25/18 06/09/18 History warfarin 2.5 mg PO UD 02/25/18 06/09/18 History glipizide 5 mg PO QDL 05/25/18 06/09/18 History hydralazine 10 mg PO BID 05/25/18 06/09/18 History isosorbide mononitrate 60 mg PO QAM 05/25/18 06/09/18 History torsemide 40 mg PO QAM 05/25/18 06/09/18 History spironolactone 12.5 mg PO DAILY 30 Days #15 tab 05/29/18 06/09/18 Rx torsemide 20 mg PO UD #0 tab 05/29/18 06/09/18 Rx Patient History Medical History Pulmonary edema (Acute) Hypoxia (Acute) Bundle branch block, left (Acute) Liver mass (Acute) Fluid overload Acute on chronic systolic (congestive) heart failure DVT prophylaxis Acute respiratory failure with hypoxia Pickwickian syndrome Atrial fibrillation (Chronic) unsure of initial onset (had > 1 year ago per medical record) - on coumadin CAD (coronary artery disease) (Chronic) Ischemic cardiomyopathy (Chronic) Chronic systolic heart failure (Chronic) Chronic diastolic heart failure (Chronic) HTN (hypertension) (Chronic) LBBB (left bundle branch block) (Chronic) Depression (Chronic) Dyslipidemia (Chronic) Diabetes mellitus, type II (Chronic) NIDDM CKD (chronic kidney disease), stage III (Chronic) Anticoagulated on Coumadin (Chronic) Hiatal hernia (Chronic) Morbid obesity (Chronic) Uses hearing aid (Chronic) Congestive heart failure Esophageal varices Fatty liver Glaucoma 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 History of pleural effusion Liver mass Myocardial Infarction 2011 On home oxygen therapy 1 lpm at night Surgical History History of cataract removal with insertion of prosthetic lens (Chronic) History of cholecystectomy (Chronic) History of coronary artery bypass graft (Chronic) 2011 - [place] - vessels - follows w/ dr. mitchell History of cardiac cath 2012 - [facility] - [place] --> CABG - follows w/ dr. mitchell History of esophagogastroduodenoscopy (EGD) History of thoracentesis Family History Other HTN (hypertension) Lymphoma Stroke Social History marital status: Current Living Situation: Spouse Other Information That Helps Us Care for You: No Feels Safe at Home: Yes Smoking Status: Never smoker Second Hand Exposure: No Hx Alcohol Use: No Hx Substance Use: No Beliefs That Will Affect Care: None Preferred Language: Citizen [place] Communication Ability: Effective Wheat Cleaner Required: No Review of Systems A 10 point review of systems is reviewed and is negative with the exception of that noted above Physical Exam 2 Vital Signs (Past 24 Hours): Last Vital Signs Temp 36.5 C 06/09/18 16:58 Pulse 66 06/09/18 16:58 Resp 18 06/09/18 16:58 BP 131/82 06/09/18 16:58 Pulse Ox 96 06/09/18 16:58 Physical Exam: General: no acute distress and stated age Eyes: conjunctiva are pink and non-injected, sclera clear Neck: normal jugular venous pulse, no hepatojugular reflux Chest: normal shape and normal respiratory effort Lungs: Mildly decreased breath sounds the bases bilaterally Cardiac Exam: - regular heart sounds, no murmurs, rubs, or gallops, no jugular venous distention Abdomen: Soft, mild abdominal Extremities: Trace lower extremity edema Neuro:awake, coversant, follows commands, no focal motor deficits Psych: appropriate affect and insight. _ (1) Atrial fibrillation Atrial fibrillation type: persistent Qualified Code(s): I48.1 - Persistent atrial fibrillation
--- NOTE | 2018-06-09 19:59 | Ultrasound Report ---
US abdomen limited CLINICAL HISTORY: 77 years-old Male presenting with history of cirrhosis, concern for ascites. TECHNIQUE: Real-time grayscale ultrasound imaging of the abdomen limited to evaluation for ascites wa s performed. COMPARISON: MR from 02/26/2018. FINDINGS: Ascites: None. Other: No evidence of fluid distended bowel. Grossly normal spleen. Left renal cyst suggested. Bladde r grossly normal. IMPRESSION: No ascites. Electronically signed by: Bryce Elliott M.D. 06/09/2018 7:57 PM
[2018-06-09] MEDS: HydrALAZINE 10 MG TAB PO SCH (20:31)
[2018-06-09] MEDS: INSULIN GLARGINE SOLOSTAR 100 UNITS/ML 3 ML PEN SC SCH (20:31)
[2018-06-09] MEDS: DOCUSATE SODIUM 100 MG CAP PO SCH (20:31)
[2018-06-09] MEDS: ATORVASTATIN 40 MG TAB PO SCH (20:32)
[2018-06-09] MEDS: SERTRALINE HCL 100 MG TABLET PO SCH (20:32)
[2018-06-09] MEDS ORDERED: FUROSEMIDE 60 MG in SYRINGE 0 ML IV SCH (21:00)
[2018-06-09] MEDS ORDERED: FUROSEMIDE 40 MG/4 ML VIAL IV SCH (21:00)
--- NOTE | 2018-06-10 01:18 | History & Physical Report ---
Date of Service June 10, 2018 Assessment & Plan (1) Liver mass: 77 yo with clinical cirrhosis with left lobe liver lesion concerning for HCC. No urgent treatment needed, obviously the cardiovascular issues are the most pressing at this time. Given advanced age and heart disease OLT would not be an option. If truly thought to be an HCC IR based therapy would most likely be pursued. Recs: 1. Continue fluid and CV management via the Cardiology Team 2. Follow up with Hepatology at [facility] as scheduled on 07/03/2018 No further recognitions will sign off, please call with concerns or questions. History of Present Illness Primary Care Provider: Derrell Choudhury DO 77-year-old male who presented to the emergency room with dyspnea thought to be related to exacerbation of his underlying congestive heart failure. He was recently admitted from 05/25/18 until 05/30/18 for significant volume overload and diuresed appx 20lb of weight. His heart failure is signficant enough and is scheduled to have a biventricular pacemaker AICD placed with Dr Walker at [facility] In Feb he had a CT scan was performed and showed a suspicious mass in the left hepatic lobe of the liver. In addition there are changes that are suggestive of underlying cirrhosis. This was the first time he was told he had concerning features of cirrhosis. He has a concerning LLL lesion for an HCC and has follow up scheduled with hepatology in [place] for consideration of treatment on 07/03/2018. He notes that his complaints of dyspnea are very similar to his most recent hospitalization. He denies any GI bleeding, confusion or other issues. MRI 02/2018 FINDINGS: There is no biliary ductal dilatation status post cholecystectomy. No common bile duct calculi are identified. Course and caliber of the main pancreatic duct is normal. 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 The liver is cirrhotic with nodularity of the liver surface and enlargement of the caudate lobe and lateral segment. This exam is moderately compromised by motion artifact. The main, right and left portal veins appear grossly patent. Note is made of a 4.7 x 3.8 cm T2 hyperintense mass within the lateral segment of the liver which corresponds to the lesion shown on CT of February 25, 2018. This demonstrates restricted diffusion. Although suboptimally assessed due to motion artifact, this lesion is slightly hyperintense to the adjacent liver parenchyma on early portal venous phase. Washout is noted on the more delayed phase. This is hypointense on the 20 minute delayed phase images. No additional hepatic lesions are identified. The spleen is mildly enlarged. No ascites is noted. No abdominal lymphadenopathy is noted. Small to moderate right and small left pleural effusions are noted. A small hiatal hernia is present. A left renal cyst is noted. There is no hydronephrosis. IMPRESSION: 1. 4.7 x 3.8 cm lateral segment hepatic lesion, suboptimally assessed on this exam due to respiratory motion artifact. Given cirrhosis and the imaging characteristics, this lesion is highly suspicious for hepatocellular carcinoma. 2. Cirrhosis with mild splenomegaly. No ascites. No abdominal lymphadenopathy. 3. Small to moderate right and small left pleural effusions, partially imaged on this exam. Allergies Allergy/AdvReac Type Severity Reaction Status Date / Time grass pollen-perennial rye, Allergy Intermediate SHORTNESS Verified 06/09/18 13: 53 standar OF BREATH ragweed pollen Allergy Intermediate SHORTNESS Verified 06/09/18 13:53 OF BREATH oxycodone AdvReac Mild aggitation Verified 06/09/18 13:53 Home Medications Home Medications Medication Instructions Recorded Confirmed Type albuterol sulfate [Ventolin HFA] 2 puff INHALATION Q6H PRN 02/25/18 06/09/18 History aspirin [Aspir-Low] 81 mg PO QDL 02/25/18 06/09/18 History atorvastatin 80 mg PO HS 02/25/18 06/09/18 History fenofibrate micronized 67 mg PO QAM 02/25/18 06/09/18 History finasteride 5 mg PO QAM 02/25/18 06/09/18 History fluticasone [Flonase Allergy 2 spray INTRANASAL DAILY PRN 02/25/18 06/09/18 History Relief] metoprolol succinate 25 mg PO QDL 02/25/18 06/09/18 History nitroglycerin 0.4 mg SUBLINGUAL DIRECTED PRN 02/25/18 06/09/18 History sertraline 100 mg PO HS 02/25/18 06/09/18 History warfarin 2.5 mg PO UD 02/25/18 06/09/18 History glipizide 5 mg PO QDL 05/25/18 06/09/18 History hydralazine 10 mg PO BID 05/25/18 06/09/18 History isosorbide mononitrate 60 mg PO QAM 05/25/18 06/09/18 History torsemide 40 mg PO QAM 05/25/18 06/09/18 History spironolactone 12.5 mg PO DAILY 30 Days #15 tab 05/29/18 06/09/18 Rx torsemide 20 mg PO UD #0 tab 05/29/18 06/09/18 Rx Past Med/Surg History Medical History Pulmonary edema (Acute) Hypoxia (Acute) Bundle branch block, left (Acute) Liver mass (Acute) Fluid overload Acute on chronic systolic (congestive) heart failure DVT prophylaxis Acute respiratory failure with hypoxia Pickwickian syndrome Atrial fibrillation (Chronic) unsure of initial onset (had > 1 year ago per medical record) - on coumadin CAD (coronary artery disease) (Chronic) Ischemic cardiomyopathy (Chronic) Chronic systolic heart failure (Chronic) Chronic diastolic heart failure (Chronic) HTN (hypertension) (Chronic) LBBB (left bundle branch block) (Chronic) Depression (Chronic) Dyslipidemia (Chronic) Diabetes mellitus, type II (Chronic) NIDDM CKD (chronic kidney disease), stage III (Chronic) Anticoagulated on Coumadin (Chronic) Hiatal hernia (Chronic) Morbid obesity (Chronic) Uses hearing aid (Chronic) Congestive heart failure Esophageal varices Fatty liver Glaucoma 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 History of pleural effusion Liver mass Myocardial Infarction 2011 On home oxygen therapy 1 lpm at night Surgical History History of cataract removal with insertion of prosthetic lens (Chronic) History of cholecystectomy (Chronic) History of coronary artery bypass graft (Chronic) [place] - vessels - follows w/ dr. choudhury History of cardiac cath 2011 - [facility] - [place] --> CABG - follows w/ dr. choudhury History of esophagogastroduodenoscopy (EGD) History of thoracentesis Family History Other HTN (hypertension) Lymphoma Stroke Social History marital status: Current Living Situation: Spouse Other Information That Helps Us Care for You: No Feels Safe at Home: Yes Smoking Status: Never smoker Second Hand Exposure: No Hx Alcohol Use: No Hx Substance Use: No Beliefs That Will Affect Care: None Preferred Language: [place] Communication Ability: Effective Retail Loan Originator Assistant Required: No Physical Exam 2 Vital Signs (Past 24 Hours): Last Vital Signs Temp 36.6 C 06/09/18 23:05 Pulse 59 L 06/09/18 23:05 Resp 18 06/09/18 23:05 BP 93/58 L 06/09/18 23:05 Pulse Ox 94 06/09/18 23:05 Awake alert oriented x3 no asterixis Heart is regular with a 3 out of 6 systolic murmur Lungs show crackles in the bases Normoactive soft nontender 1+ peripheral edema
[2018-06-10] MEDS: FENOFIBRATE SCH ×3 (03:07→15:48)
[2018-06-10 06:43] LABS: Hematocrit (blood only) 40.4 % (42-52); Hemoglobin 12.6 g/dL (14.0-18.0); Mean Corpuscular Hgb Conc 31.2 g/dL (32-36); Mean Corpuscular Volume 92.4 fL (80-100); Mean Platelet Volume 11.8 fL (7.4-10.4); Platelet Count 146 K/uL (130-400); RDW Standard Deviation 57.5 fL (36.4-46.3); Red Blood Count 4.37 M/uL (4.7-6.1); White Blood Count 5.95 K/uL (4.8-10.8)
[2018-06-10 06:56] LABS: INR 2.4 (0.9-1.1); Prothrombin Time 22.7 Seconds (9.0-12.0)
[2018-06-10] MEDS ORDERED: FUROSEMIDE 60 MG in SYRINGE 0 ML IV SCH (07:00)
[2018-06-10 07:18] LABS: BUN Creatinine Ratio 16.9 (10-20); Calcium 8.4 mg/dl (8.5-10.1); Creatinine Clr Calc Pharmacy 47.1 ml/min; Est GFR (African American) 40.1; Est GFR (Non-African American) 34.6; Magnesium 2.7 mg/dl (1.8-2.4); Potassium 4.1 mmol/L (3.5-5.1)
[2018-06-10] MEDS: ISOSORBIDE MONO EXTENDED REL 60 MG TABCR PO SCH (07:49)
[2018-06-10] MEDS: DOCUSATE SODIUM 100 MG CAP PO SCH ×2 (07:50→20:06)
[2018-06-10] MEDS: SPIRONOLACTONE 25 MG TAB PO SCH (07:50)
[2018-06-10] MEDS: HydrALAZINE 10 MG TAB PO SCH ×2 (07:50→20:07)
[2018-06-10] MEDS: FINASTERIDE 5 MG TAB PO SCH (07:50)
[2018-06-10] MEDS: INSULIN GLARGINE SOLOSTAR 100 UNITS/ML 3 ML PEN SC SCH ×2 (07:50→21:27)
[2018-06-10] MEDS: INSULIN ASPART 100 UNITS/ML 3 ML PEN SC SCH ×4 (07:50→21:27)
[2018-06-10] MEDS: FUROSEMIDE 40 MG in SYRINGE 0 ML IV SCH (08:28)
[2018-06-10] MEDS: ASPIRIN 81 MG ECTAB PO SCH (11:47)
[2018-06-10] MEDS: METOPROLOL SUCC 25MG EXT REL TAB PO SCH ×2 (11:47→20:06)
--- NOTE | 2018-06-10 12:58 | Hospitalist Progress Note ---
Date of Service June 10, 2018 Assessment & Plan (1) CHF (congestive heart failure): Acute on chronic systolic/Diastolic CHF Chronic Oxygen Dependency: uses 1 liter supplemental O2 QHS --CXR showed:Cardiomegaly with evidence of congestive failure and interstitial edema. There are small pleural effusions with bibasilar consolidation. --Last ECHO: 05/29/18: EF:30% Started on IV Lasix 60mg BID Oxygen support PRN Cardiology consulted-appreciate input and recommendation Continue home meds: Metoprolol, Imdur, Hydralazine, aldactone AICD placement as per Cardiology recommendations Diuresing a lot Clinically a lot better today Denies any symptoms at rest Abdominal Distention/tightness: H/O liver Mass Prior imaging studies suggestive of Cirrhosis/HCC Check Abd USD for Ascites Consulted GI for Input Bowel regimen to prevent constipation Continue Diuretics (2) Atrial fibrillation: Rate controlled Continue Metoprolol PT/INR:2.5 Continue coumadin Monitor INR Denies any cardiac symptoms of chest pain and/or palpitation (3) CAD (coronary artery disease): H/O CABG in 2011 H/O LBBB Denies chest pain Continue home medications--Aspirin, BB, Statin, Imdur (4) Diabetes mellitus, type II: Last A1C: well controlled Hold Po meds Utilize ISS, lantus while hospitalized monitor BGs (5) CKD (chronic kidney disease), stage III: Baseline cr 1.7-1.9 Cr: 1.82 Monitor renal function while on diuretics Avoid Nephrotoxic agents as able Creatinine 1.85 as of today 06/10 (6) Morbid obesity: Life style changes HTN: Stable Continue home meds BPH: No issues Continue home meds DVT Px: On Coumadin Code Status: Full/DNI only-- as per my discussion with patient (7) Liver mass: Associated with cirrhosis Alpha-fetoprotein level is normal during last admission Appreciate GI evaluation and recommended No ascites on ultrasound Has an appointment with band manager in [facility] He is a 77 years old obese male with significant past medical history significant for pickwickian syndrome, ischemic cardiomyopathy with EF of 30-35% in February 2018 , systolic and diastolic heart failure, ,atrial fibrillation and cirrhosis with the liver mass likely secondary to hepatocellular carcinoma was admitted with acute on chronic systolic and diastolic heart failure. 06/10 The patient was seen and examined in telemetry unit He has been feeling a lot better since admission Has been getting intravenous Lasix and having considerable diuresis Denies any significant symptoms Physical Exam 2 Vital Signs (Past 24 Hours): Last Vital Signs Temp 36.4 C L 06/10/18 11:31 Pulse 71 06/10/18 11:31 Resp 21 06/10/18 11:31 BP 100/57 L 06/10/18 11:31 Pulse Ox 91 06/10/18 11:31 Physical Exam: Lying in bed comfortably. Minimal shortness of breath after Constitutional: WD/WN, vitals as above Eyes: PERRL, conjunctivae normal, anicteric sclerae ENMT: external ear and nose normal, oropharynx normal Neck: trachea midline, no thyromegaly Respiratory: normal respiratory effort; no respiratory distress Auscultation: + diminished lung sounds and + crackles (Minimal at the bases) Cardiovascular: Rate/Rhythm: + abnormal rate and + abnormal rhythm Heart Sounds: normal S1 and normal S2 Gastrointestinal (Abdomen): Inspection/Auscultation: + abdomen distended and normal bowel sounds Percussion/Palpation: abdomen soft; abdomen nontender Neurologic: Alert, awake and oriented x3. Generally weak but no focal neuro deficit Results & Data Laboratory Results Short CBC 06/10/18 Range/Units 06:19 WBC 5.95 (4.8-10.8) K/uL Hgb 12.6 L (14.0-18.0) g/dL Hct 40.4 L (42-52) % Plt Count 146 (130-400) K/uL BMP 06/10/18 06:19 Sodium 139 Potassium 4.1 Chloride 101 Carbon Dioxide 30 BUN 31 H Creatinine 1.85 H Glucose 106 H Calcium 8.4 L Medications Administered Current Inpatient Medications Acetaminophen (Tylenol) 650 mg PO Q4H PRN PRN Reason: Pain or Fever Stop: 07/09/18 17:41 Albuterol (Duoneb) 3 ml NEB Q4R PRN PRN Reason: Shortness Of Breath Or Wheezing Stop: 07/09/18 17:41 Aspirin (Ecotrin Ectab) 81 mg PO QDL [facility] Stop: 07/10/18 11:29 Last Admin: 06/10/18 11:47 Dose: 81 mg Atorvastatin Calcium (Lipitor) 80 mg PO HS [facility] Stop: 07/09/18 20:59 Last Admin: 06/09/18 20:32 Dose: 80 mg Dextrose (Dextrose 50%) 25 - 50 ml IV UD PRN; Protocol PRN Reason: Hypoglycemia Protocol Stop: 07/09/18 17:41 Docusate Sodium (Colace) 100 mg PO BID [facility] Stop: 07/09/18 20:59 Last Admin: 06/10/18 07:50 Dose: 100 mg Finasteride (Proscar) 5 mg PO QAM [facility] Stop: 07/10/18 08:59 Last Admin: 06/10/18 07:50 Dose: 5 mg Fluticasone Propionate (Flonase) 2 sprays NA DAILY PRN PRN Reason: Nasal Congestion Stop: 07/09/18 17:41 Glucagon (Glucagen) 1 mg SQ UD PRN; Protocol PRN Reason: Hypoglycemia Protocol Stop: 07/09/18 17:41 Glucose (Glucose 40%) 15 - 30 gm PO UD PRN; Protocol PRN Reason: Hypoglycemia Protocol Stop: 07/09/18 17:41 Glucose (Dex4 Glucose) 4 - 8 tabs PO UD PRN; Protocol PRN Reason: Hypoglycemia Protocol Stop: 07/09/18 17:41 Hydralazine HCl (Apresoline) 10 mg PO BID [facility] Stop: 07/09/18 20:59 Last Admin: 06/10/18 07:50 Dose: 10 mg Furosemide 40 mg/ Syringe 4 mls @ 4 mls/min IV DAILY [facility] Stop: 07/10/18 08:59 Last Admin: 06/10/18 08:28 Dose: 4 mls/min Insulin Aspart (Novolog Flexpen) 0 units SC ACHS [facility] Stop: 07/09/18 17:41 Last Admin: 06/10/18 11:47 Dose: 6 units Insulin Glargine (Lantus Solostar Pen) 7 units SC Q12 [facility] Stop: 07/09/18 20:59 Last Admin: 06/10/18 07:50 Dose: 7 units Isosorbide Mononitrate (Imdur Extended Rel) 60 mg PO QAM [facility] Stop: 07/10/18 08:59 Last Admin: 06/10/18 07:49 Dose: 60 mg Metoprolol Succinate (Toprol Xl) 25 mg PO QDL [facility] Stop: 07/10/18 11:29 Last Admin: 06/10/18 11:47 Dose: 25 mg Miscellaneous (Carbohydrates For Hypoglycemia) 15 - 30 gm PO UD PRN PRN Reason: Hypoglycemia Treatment Stop: 07/09/18 17:41 Miscellaneous (Order Awaiting Action) 1 ea N/A QS [facility] Stop: 07/10/18 00:00 Last Admin: 06/10/18 07:08 Dose: Not Given Nitroglycerin (Nitrostat) 0.4 mg SL UD PRN PRN Reason: Chest Pain Stop: 07/09/18 17:41 Polyethylene Glycol (Miralax Powder Packet) 17 gm PO DAILY PRN PRN Reason: Constipation Stop: 07/09/18 17:41 Sertraline HCl (Zoloft) 100 mg PO HS [facility] Stop: 07/09/18 20:59 Last Admin: 06/09/18 20:32 Dose: 100 mg Spironolactone (Aldactone) 12.5 mg PO DAILY [facility] Stop: 07/10/18 08:59 Last Admin: 06/10/18 07:50 Dose: 12.5 mg Warfarin Sodium (Coumadin) 7.5 mg PO DAILY@1600 [facility] Stop: 07/09/18 17:41 Last Admin: 06/09/18 18:39 Dose: 7.5 mg _ (1) CHF (congestive heart failure) Heart failure chronicity: acute on chronic Heart failure type: unspecified Qualified Code(s): I50.9 - Heart failure, unspecified (2) Atrial fibrillation Atrial fibrillation type: persistent Qualified Code(s): I48.1 - Persistent atrial fibrillation
[2018-06-10] MEDS: WARFARIN SOD 7.5 MG TAB PO SCH (16:45)
--- NOTE | 2018-06-10 16:58 | Cardiology Progress Note ---
Date of Service June 10, 2018 Assessment & Plan (1) Acute on chronic systolic (congestive) heart failure: (2) Ischemic cardiomyopathy: Patient appears to be at dry weight and approaching intravascular volume depletion. Creatinine trending upward. Recommend holding intravenous diuretic therapy at this time. Repeat basic metabolic panel in the a.m. If renal function remains stable will transition back to oral torsemide. Currently, patient is able to lie supine I believe he could tolerate biventricular ICD implantation. He will keep scheduled appointment on June 14. Per review of records, the patient weighed 131 kg at time of discharge on 05/29/18, and his recorded weight today was 129 kg. (3) Atrial fibrillation: Rate controlled and appropriately anticoagulated with Coumadin. Chronic atrial fibrillation. Will need to coordinate anticoagulation plan with electrophysiology regarding goal INR for the procedure. (4) Bundle branch block, left: QRS of 180 ms, planning for cardiac recent cauterization therapy. (5) Liver mass: Appreciate gastroenterology input. Patient scheduled to follow-up with her pathology in early June. Subjective Patient seen and examined the bedside. is present as well. Patient admitted with acute on chronic systolic heart failure. Weight is down from prior to discharge. Patient reports abdominal bloating, however, also notes constipation times 4 days prior to admission. He received intravenous diuretic therapy with moderate diuresis as well as increase in reaction. Currently mucous membranes are dry. No lower extremity edema. Previously noted abdominal bloating has improved. Reports continued constipation. Denies orthopnea or PND. Rate controlled atrial fibrillation noted on telemetry. Review of Systems All systems reviewed & are unremarkable except as noted in HPI & below Physical Exam 2 Vital Signs (Past 24 Hours): Last Vital Signs Temp 36.4 C L 06/10/18 15:28 Pulse 62 06/10/18 15:28 Resp 18 06/10/18 15:28 BP 119/70 06/10/18 15:28 Pulse Ox 92 06/10/18 15:28 Physical Exam: General: NAD, AAO x3, well nourished. Obese. HEENT: Normocephalic. Atraumatic. Conjunctiva pink, no scleral icterus. Neck: No carotid bruits, the carotid upstrokes are brisk. No JVD. No HJR Heart: Irregular rhythm. Normal S-1 and S-2 no S-3. No murmurs or rub appreciated. PMI is not displaced. No RV heave. Lungs: Clear bilateral without rales , rhonchi, or wheeze. Abdomen: Normal bowel sounds. Soft. Nontender. No masses or organomegaly. No abdominal bruits. Extremities: No clubbing, cyanosis, or edema. Pulses: radial=2/4,posterior tibial=2/4. Neuro: Cranial nerves grossly intact. No focal motor deficit. _ (1) Atrial fibrillation Atrial fibrillation type: persistent Qualified Code(s): I48.1 - Persistent atrial fibrillation
--- NOTE | 2018-06-10 19:43 | Emergency Department Note ---
Entered by Maryann Orellana acting as a scribe for María Arias DO History of Present Illness General Chief complaint: Shortness of Breath/Dyspnea Time Seen by Provider: 06/09/18 10:41 Source: patient History of Present Illness Onset (ago): day(s) (this morning) Location: chest Pain Consistency: + other (worsening) Maximum Pain Intensity: 0 Quality: + other (shortness of breath) Relieved By: + other (Oxygen); not by medication (water pills) Associated symptoms: + other (full abdomen, weight gain, constipation); no cough and no fever/chills (fever) The patient is a 77 year old male who presents to the Emergency Room with complaints of worsening shortness of breath starting this morning. The patient states that he was here 2 weeks ago for shortness of breath. He states that he was admitted and they removed 25 lbs of fluid from his lungs. He states that over the past few days he has noticed he is filling back up again. He states that it starts in his stomach and it feels full, before he becomes short of breath. He states that as soon as the shortness of breath started he decided to come to the ED. He notes that he started himself on 3L O2 and that has helped his shortness of breath. He notes that he has gained 4 lbs in 48 hours and was told if he gains more than [address] Mitchell to come to the ED. He reports that he has been taking his water pills and took 2 extra with no relief. He states that he feels he is not urinating as much as he should be with how much of his water pills he has taken. The patient notes that he is supposed to have a pacer defibrillator installed in 5 days. The patient complains of constipation. The patient denies cough, fever, a history of lung problems, and ever being a smoker. Home Medications Home Medications Medication Instructions Recorded Confirmed Type albuterol sulfate [Ventolin HFA] 2 puff INHALATION Q6H PRN 02/25/18 06/09/18 History aspirin [Aspir-Low] 81 mg PO QDL 02/25/18 06/09/18 History atorvastatin 80 mg PO HS 02/25/18 06/09/18 History fenofibrate micronized 67 mg PO QAM 02/25/18 06/09/18 History finasteride 5 mg PO QAM 02/25/18 06/09/18 History fluticasone [Flonase Allergy 2 spray INTRANASAL DAILY PRN 02/25/18 06/09/18 History Relief] metoprolol succinate 25 mg PO QDL 02/25/18 06/09/18 History nitroglycerin 0.4 mg SUBLINGUAL DIRECTED PRN 02/25/18 06/09/18 History sertraline 100 mg PO HS 02/25/18 06/09/18 History warfarin 2.5 mg PO UD 02/25/18 06/09/18 History glipizide 5 mg PO QDL 05/25/18 06/09/18 History hydralazine 10 mg PO BID 05/25/18 06/09/18 History isosorbide mononitrate 60 mg PO QAM 05/25/18 06/09/18 History torsemide 40 mg PO QAM 05/25/18 06/09/18 History spironolactone 12.5 mg PO DAILY 30 Days #15 tab 05/29/18 06/09/18 Rx torsemide 20 mg PO UD #0 tab 05/29/18 06/09/18 Rx Allergies Allergy/AdvReac Type Severity Reaction Status Date / Time grass pollen-perennial rye, Allergy Intermediate SHORTNESS Verified 06/09/18 13: 53 standar OF BREATH ragweed pollen Allergy Intermediate SHORTNESS Verified 06/09/18 13:53 OF BREATH oxycodone AdvReac Mild aggitation Verified 06/09/18 13:53 Past Med/Surg History Medical History Pulmonary edema (Acute) Hypoxia (Acute) Bundle branch block, left (Acute) Liver mass (Acute) Fluid overload Acute on chronic systolic (congestive) heart failure DVT prophylaxis Acute respiratory failure with hypoxia Pickwickian syndrome Atrial fibrillation (Chronic) unsure of initial onset (had > 1 year ago per medical record) - on coumadin CAD (coronary artery disease) (Chronic) Ischemic cardiomyopathy (Chronic) Chronic systolic heart failure (Chronic) Chronic diastolic heart failure (Chronic) HTN (hypertension) (Chronic) LBBB (left bundle branch block) (Chronic) Depression (Chronic) Dyslipidemia (Chronic) Diabetes mellitus, type II (Chronic) NIDDM CKD (chronic kidney disease), stage III (Chronic) Anticoagulated on Coumadin (Chronic) Hiatal hernia (Chronic) Morbid obesity (Chronic) Uses hearing aid (Chronic) Congestive heart failure Esophageal varices Fatty liver Glaucoma 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 mitchell History of cardiac cath 2011 - [facility] - [place] --> CABG - follows w/ dr. mitchell History of esophagogastroduodenoscopy (EGD) History of thoracentesis Family History Other HTN (hypertension) Lymphoma Stroke Social History marital status: Current Living Situation: Spouse Other Information That Helps Us Care for You: No Feels Safe at Home: Yes Smoking Status: Never smoker Second Hand Exposure: No Hx Alcohol Use: No Hx Substance Use: No Beliefs That Will Affect Care: None Communication Ability: Effective Review of Systems See HPI for pertinent positives & negatives. and A total of 10 systems reviewed and were otherwise negative Physical Exam Vital Signs Vital Signs - 24 hr 06/09/18 20:00 06/09/18 23:05 06/10/18 05:23 Temperature 36.6 C 36.3 C L Temperature Source Oral Oral Pulse Rate [Apical] 59 L 71 Respiratory Rate 18 16 Respiratory Effort / Characteristics Non-Labored Spontaneous Respiratory Depth Normal Respiratory Pattern Regular Blood Pressure [Left Arm] 93/58 L 113/71 Blood Pressure Mean [Left Arm] 69 85 Blood Pressure Position [Left Arm] Lying Lying Pulse Oximetry 94 93 Oxygen Delivery Method Nasal Cannula Nasal Cannula Nasal Cannula Oxygen Flow Rate 2 2 1.5 06/10/18 11:31 06/10/18 15:28 Temperature 36.4 C L 36.4 C L Temperature Source Axillary Oral Pulse Rate [Apical] 71 62 Respiratory Rate 21 18 Respiratory Effort / Characteristics Respiratory Depth Respiratory Pattern Blood Pressure [Left Arm] 100/57 L 119/70 Blood Pressure Mean [Left Arm] 71 86 Blood Pressure Position [Left Arm] Sitting Lying Pulse Oximetry 91 92 Oxygen Delivery Method Room Air Room Air Oxygen Flow Rate GENERAL: alert, obese, uncomfortable appearing, well nourished, no distress, non -toxic EYE EXAM: normal conjunctiva, PERRL and EOM's grossly intact OROPHARYNX: no exudate, no erythema, lips, buccal mucosa, and tongue normal and mucous membranes are moist NECK: supple, no nuchal rigidity, no adenopathy, non-tender LUNGS: Decreased breath sounds. Fine bibasilar rales. Normal chest wall mechanics HEART: no murmurs, S1 normal and S2 normal CHEST: Well healed midline sternotomy scar. ABDOMEN: abdomen soft, non-tender, normo-active bowel sounds, no masses, no rebound or guarding. BACK: Back is symmetrical on inspection and there is no deformity, no midline tenderness, no CVA tenderness. SKIN: no rashes and no bruising UPPER EXTREMITIES: upper extremities are grossly normal. Normal pulses bilaterally, no evidence of trauma. LOWER EXTREMITIES: 1+ lower extremity edema. Normal pulses bilaterally, no evidence of trauma per NEURO EXAM: Normal sensorium, cranial nerves II-XII grossly intact, normal speech, no gross weakness of arms, no gross weakness of legs. Course 1032: Past medical records reviewed. The patient was evaluated in room A7, and a complete history and physical examination were performed. 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 1300: I discussed the patient's case with Dr. Satay Gil. He states that he will come see the patient and to admit them. 1309: I reviewed the patient's case with JUAN Segura. She will evaluate the patient for further management. 1312: I reevaluated the patient and updated him on his test results. I discussed the treatment plan with him. He verbally agrees and understands. Consultations Consultation #1: I discussed the patient's case with Dr. Satya Gil. He states that he will come see the patient and to admit them. Time: 13:00 Consultation #2: I reviewed the patient's case with JUAN Segura. She will evaluate the patient for further management. Time: 13:09 Administered Medications Aspirin (Ecotrin Ectab) 81 mg PO QDL [facility] Stop: 07/10/18 11:29 Last Admin: 06/10/18 11:47 Dose: 81 mg Atorvastatin Calcium (Lipitor) 80 mg PO HS [facility] Stop: 07/09/18 20:59 Last Admin: 06/09/18 20:32 Dose: 80 mg Docusate Sodium (Colace) 100 mg PO BID [facility] Stop: 07/09/18 20:59 Last Admin: 06/10/18 07:50 Dose: 100 mg Admin: 06/09/18 20:31 Dose: 100 mg Finasteride (Proscar) 5 mg PO QAM [facility] Stop: 07/10/18 08:59 Last Admin: 06/10/18 07:50 Dose: 5 mg Hydralazine HCl (Apresoline) 10 mg PO BID [facility] Stop: 07/09/18 20:59 Last Admin: 06/10/18 07:50 Dose: 10 mg Admin: 06/09/18 20:31 Dose: 10 mg Furosemide 40 mg/ Syringe 4 mls @ 4 mls/min IV DAILY [facility] Stop: 07/10/18 08:59 Last Admin: 06/10/18 08:28 Dose: 4 mls/min Insulin Aspart (Novolog Flexpen) 0 units SC ACHS [facility] Stop: 07/09/18 17:41 Last Admin: 06/10/18 16:45 Dose: 5 units Admin: 06/10/18 11:47 Dose: 6 units Admin: 06/10/18 07:50 Dose: 5 units Admin: 06/09/18 20:32 Dose: Not Given Admin: 06/09/18 18:16 Dose: Not Given Insulin Glargine (Lantus Solostar Pen) 7 units SC Q12 [facility] Stop: 07/09/18 20:59 Last Admin: 06/10/18 07:50 Dose: 7 units Admin: 06/09/18 20:31 Dose: 7 units Isosorbide Mononitrate (Imdur Extended Rel) 60 mg PO QAM [facility] Stop: 07/10/18 08:59 Last Admin: 06/10/18 07:49 Dose: 60 mg Metoprolol Succinate (Toprol Xl) 25 mg PO QDL [facility] Stop: 07/10/18 11:29 Last Admin: 06/10/18 11:47 Dose: 25 mg Miscellaneous (Order Awaiting Action) 1 ea N/A QS [facility] Stop: 07/10/18 00:00 Last Admin: 06/10/18 15:48 Dose: Not Given Admin: 06/10/18 07:08 Dose: Not Given Admin: 06/10/18 03:07 Dose: Not Given Sertraline HCl (Zoloft) 100 mg PO HS [facility] Stop: 07/09/18 20:59 Last Admin: 06/09/18 20:32 Dose: 100 mg Spironolactone (Aldactone) 12.5 mg PO DAILY [facility] Stop: 07/10/18 08:59 Last Admin: 06/10/18 07:50 Dose: 12.5 mg Warfarin Sodium (Coumadin) 7.5 mg PO DAILY@1600 [facility] Stop: 07/09/18 17:41 Last Admin: 06/10/18 16:45 Dose: 7.5 mg Admin: 06/09/18 18:39 Dose: 7.5 mg Discontinued Medications Furosemide (Lasix) 40 mg IV NOW STA Stop: 06/09/18 13:00 Last Admin: 06/09/18 13:10 Dose: 40 mg Medical Decision Making Differential Diagnosis Differential diagnosis: Etiologies such as infections, reactive airway disease, COPD, pneumonia, pleural effusion, pulmonary edema, ARDS, pneumothorax, CHF, cardiac ischemia, cardiac tamponade, dysrhythmia, anemia, pulmonary embolism, musculoskeletal, gastrointestinal process, as well as others were entertained. Medical Records Attestation: I reviewed the patient's medical records. Home Medications Current Medication List: was personally reviewed by me Laboratory Data Attestation: I reviewed the patient's lab results. Result diagrams: 06/10/18 06:19 06/10/18 06:19 Lab Results 06/09/18 06/09/18 06/09/18 Range/Units 10:10 10:10 10:10 WBC 5.55 (4.8-10.8) K/uL RBC 4.24 L (4.7-6.1) M/uL Hgb 12.5 L (14.0-18.0) g/dL Hct 39.6 L (42-52) % MCV 93.4 (80-100) fL MCH 29.5 (25-34) pg MCHC 31.6 L (32-36) g/dL RDW Std Deviation 58.0 H (36.4-46.3) fL RDW Coeff of Abhinav 17.1 H (11.5-14.5) % Plt Count 122 L (130-400) K/uL MPV 10.7 H (7.4-10.4) fL Immature Gran % (Auto) 0.2 % Neut % (Auto) 72.1 % Lymph % (Auto) 13.2 % [place] % (Auto) 7.9 % Eos % (Auto) 6.1 % Baso % (Auto) 0.5 % Immature Gran # (Auto) 0.01 (0.00-0.02) K/uL Neut # (Auto) 4.00 (1.4-6.5) K/uL Lymph # (Auto) 0.73 L (1.2-3.4) K/uL [place] # (Auto) 0.44 (0.11-0.59) K/uL Eos # (Auto) 0.34 (0-0.5) K/uL Baso # (Auto) 0.03 (0-0.2) K/uL PT 23.9 H (9.0-12.0) Seconds INR 2.5 H (0.9-1.1) APTT 34.0 H (21.0-31.0) Seconds PTT Ratio 1.3 Sodium 139 (136-145) mmol/L Potassium 4.5 (3.5-5.1) mmol/L Chloride 102 (98-107) mmol/L Carbon Dioxide 31 (21-32) mmol/L Anion Gap 6.0 (3-11) BUN 30 H (7-18) mg/dl Creatinine 1.82 H (0.6-1.4) mg/dl Est Cr Clr Drug Dosing Not Reportable Est GFR ( Amer) 40.9 Est GFR (Non-Af Amer) 35.3 BUN/Creatinine Ratio 16.7 (10-20) Glucose 119 H (70-99) mg/dl POC Glucose (70-99) Calcium 8.5 (8.5-10.1) mg/dl Magnesium (1.8-2.4) mg/dl Total Bilirubin 0.7 (0.2-1) mg/dl AST 40 H (15-37) U/L ALT 42 (12-78) U/L Alkaline Phosphatase 107 (45-117) U/L Troponin I < 0.015 (0-0.045) ng/ml NT-Pro-B Natriuret Pep (0-1800) pg/ml Total Protein 8.2 (6.4-8.2) gm/dl Albumin 3.4 (3.4-5.0) gm/dl Globulin 4.8 H (2.5-4.0) gm/dl Albumin/Globulin Ratio 0.7 L (0.9-2) 06/09/18 06/09/18 06/09/18 Range/Units 10:10 17:51 20:03 WBC (4.8-10.8) K/uL RBC (4.7-6.1) M/uL Hgb (14.0-18.0) g/dL Hct (42-52) % MCV (80-100) fL MCH (25-34) pg MCHC (32-36) g/dL RDW Std Deviation (36.4-46.3) fL RDW Coeff of Abhinav (11.5-14.5) % Plt Count (130-400) K/uL MPV (7.4-10.4) fL Immature Gran % (Auto) % Neut % (Auto) % Lymph % (Auto) % [place] % (Auto) % Eos % (Auto) % Baso % (Auto) % Immature Gran # (Auto) (0.00-0.02) K/uL Neut # (Auto) (1.4-6.5) K/uL Lymph # (Auto) (1.2-3.4) K/uL [place] # (Auto) (0.11-0.59) K/uL Eos # (Auto) (0-0.5) K/uL Baso # (Auto) (0-0.2) K/uL PT (9.0-12.0) Seconds INR (0.9-1.1) APTT (21.0-31.0) Seconds PTT Ratio Sodium (136-145) mmol/L Potassium (3.5-5.1) mmol/L Chloride (98-107) mmol/L Carbon Dioxide (21-32) mmol/L Anion Gap (3-11) BUN (7-18) mg/dl Creatinine (0.6-1.4) mg/dl Est Cr Clr Drug Dosing Est GFR ( Amer) Est GFR (Non-Af Amer) BUN/Creatinine Ratio (10-20) Glucose (70-99) mg/dl POC Glucose 93 108 H (70-99) Calcium (8.5-10.1) mg/dl Magnesium (1.8-2.4) mg/dl Total Bilirubin (0.2-1) mg/dl AST (15-37) U/L ALT (12-78) U/L Alkaline Phosphatase (45-117) U/L Troponin I (0-0.045) ng/ml NT-Pro-B Natriuret Pep 1071 (0-1800) pg/ml Total Protein (6.4-8.2) gm/dl Albumin (3.4-5.0) gm/dl Globulin (2.5-4.0) gm/dl Albumin/Globulin Ratio (0.9-2) 06/10/18 06/10/18 06/10/18 Range/Units 06:19 06:19 06:19 WBC 5.95 (4.8-10.8) K/uL RBC 4.37 L (4.7-6.1) M/uL Hgb 12.6 L (14.0-18.0) g/dL Hct 40.4 L (42-52) % MCV 92.4 (80-100) fL MCH 28.8 (25-34) pg MCHC 31.2 L (32-36) g/dL RDW Std Deviation 57.5 H (36.4-46.3) fL RDW Coeff of Abhinav 17.0 H (11.5-14.5) % Plt Count 146 (130-400) K/uL MPV 11.8 H (7.4-10.4) fL Immature Gran % (Auto) % Neut % (Auto) % Lymph % (Auto) % [place] % (Auto) % Eos % (Auto) % Baso % (Auto) % Immature Gran # (Auto) (0.00-0.02) K/uL Neut # (Auto) (1.4-6.5) K/uL Lymph # (Auto) (1.2-3.4) K/uL [place] # (Auto) (0.11-0.59) K/uL Eos # (Auto) (0-0.5) K/uL Baso # (Auto) (0-0.2) K/uL PT 22.7 H (9.0-12.0) Seconds INR 2.4 H (0.9-1.1) APTT (21.0-31.0) Seconds PTT Ratio Sodium 139 (136-145) mmol/L Potassium 4.1 (3.5-5.1) mmol/L Chloride 101 (98-107) mmol/L Carbon Dioxide 30 (21-32) mmol/L Anion Gap 7.0 (3-11) BUN 31 H (7-18) mg/dl Creatinine 1.85 H (0.6-1.4) mg/dl Est Cr Clr Drug Dosing 47.1 Est GFR ( Amer) 40.1 Est GFR (Non-Af Amer) 34.6 BUN/Creatinine Ratio 16.9 (10-20) Glucose 106 H (70-99) mg/dl POC Glucose (70-99) Calcium 8.4 L (8.5-10.1) mg/dl Magnesium 2.7 H (1.8-2.4) mg/dl Total Bilirubin (0.2-1) mg/dl AST (15-37) U/L ALT (12-78) U/L Alkaline Phosphatase (45-117) U/L Troponin I (0-0.045) ng/ml NT-Pro-B Natriuret Pep (0-1800) pg/ml Total Protein (6.4-8.2) gm/dl Albumin (3.4-5.0) gm/dl Globulin (2.5-4.0) gm/dl Albumin/Globulin Ratio (0.9-2) 06/10/18 06/10/18 06/10/18 Range/Units 07:22 11:33 16:29 WBC (4.8-10.8) K/uL RBC (4.7-6.1) M/uL Hgb (14.0-18.0) g/dL Hct (42-52) % MCV (80-100) fL MCH (25-34) pg MCHC (32-36) g/dL RDW Std Deviation (36.4-46.3) fL RDW Coeff of Abhinav (11.5-14.5) % Plt Count (130-400) K/uL MPV (7.4-10.4) fL Immature Gran % (Auto) % Neut % (Auto) % Lymph % (Auto) % [place] % (Auto) % Eos % (Auto) % Baso % (Auto) % Immature Gran # (Auto) (0.00-0.02) K/uL Neut # (Auto) (1.4-6.5) K/uL Lymph # (Auto) (1.2-3.4) K/uL [place] # (Auto) (0.11-0.59) K/uL Eos # (Auto) (0-0.5) K/uL Baso # (Auto) (0-0.2) K/uL PT (9.0-12.0) Seconds INR (0.9-1.1) APTT (21.0-31.0) Seconds PTT Ratio Sodium (136-145) mmol/L Potassium (3.5-5.1) mmol/L Chloride (98-107) mmol/L Carbon Dioxide (21-32) mmol/L Anion Gap (3-11) BUN (7-18) mg/dl Creatinine (0.6-1.4) mg/dl Est Cr Clr Drug Dosing Est GFR ( Amer) Est GFR (Non-Af Amer) BUN/Creatinine Ratio (10-20) Glucose (70-99) mg/dl POC Glucose 112 H 117 H 112 H (70-99) Calcium (8.5-10.1) mg/dl Magnesium (1.8-2.4) mg/dl Total Bilirubin (0.2-1) mg/dl AST (15-37) U/L ALT (12-78) U/L Alkaline Phosphatase (45-117) U/L Troponin I (0-0.045) ng/ml NT-Pro-B Natriuret Pep (0-1800) pg/ml Total Protein (6.4-8.2) gm/dl Albumin (3.4-5.0) gm/dl Globulin (2.5-4.0) gm/dl Albumin/Globulin Ratio (0.9-2) Imaging Data Radiologist's Impression: Radiology results as stated below per my review and the radiologist's interpretation: SINGLE VIEW CHEST CLINICAL HISTORY: Dyspnea. FINDINGS: 2 AP, portable, upright chest radiographs are compared to study dated 05/25/2018. Correlation is made with chest CT dated 12/09/2010. The examination is degraded by portable technique and patient rotation. The patient is status post midline sternotomy. The heart is enlarged and there is atherosclerotic calcification of the thoracic aorta. There is pulmonary vascular congestion and interstitial edema. There are small pleural effusions with bibasilar consolidation. No pneumothorax is seen. The skeletal structures are osteopenic. The bony thorax is grossly intact. IMPRESSION: 1. Cardiomegaly with evidence of congestive failure and interstitial edema. 2. There are small pleural effusions with bibasilar consolidation. This likely represents atelectasis and edema. Correlate clinically for evidence of superimposed pneumonia. Electronically signed by: Jarett Alarcon M.D. 06/09/2018 11:30 AM ECG Data Attestation: I personally reviewed and interpreted this ECG as follows: Indication: SOB/dyspnea Rate (beats per minute): 66 Rhythm: atrial fibrillation Findings: + other (normal axis) and + LBBB; no ST depression, no ST elevation and no acute ischemic change Blood Pressure Blood Pressure Findings: Normal blood pressure Blood Pressure Disposition: did not require urgent referral MDM Narrative Patient here with significant past medical history and concerning presentation for possible acute on chronic congestive heart failure. Patient already scheduled to have a bi-V pacemaker placed next week. Patient with a recent admission for congestive heart failure requiring additional inpatient diuresis also. Case discussed with Dr. Kelly given he was in contact with them earlier today. Dr. Kelly knows the patient well and gave additional instructions as well as recommended admission for inpatient management of him to assure he is improved and ready for his procedure next week. A dose of IV Lasix was ordered down here after discussion with cardiology, they will come and evaluate him in the emergency room and make additional recommendations. Case discussed with hospitalist and this information was relayed to them. I do not suspect occult infectious etiology. Patient's H&H stable compared to prior , creatinine stable compared to prior, and INR therapeutic. Patient's troponin negative, and no evidence of ACS on EKG. Patient with a known history of ischemic cardiomyopathy. Impression & Plan Dyspnea, CHF (congestive heart failure), Atrial fibrillation, Anticoagulated on Coumadin, Obesity, CKD (chronic kidney disease) Discharge Plan Visit Data *Final* Discharge Date/Time: 01/25/19 16:31 Chief Complaint: Shortness of Breath/Dyspnea ED Provider: María Arias Discharge Problem: Dyspnea, CHF (congestive heart failure), Atrial fibrillation, Anticoagulated on Coumadin, Obesity, CKD (chronic kidney disease) Patient Disposition: Admitted As Inpatient Condition: Fair Discharge Instructions Interventions: ED Discharge Assessment Last Done: 06/09/18 16:31 The scribe's documentation has been prepared under my direction and personally reviewed by me in its entirety. I confirm that the note above accurately reflects all work, treatment, procedures, and medical decision making performed by me.
[2018-06-10] MEDS: ATORVASTATIN 40 MG TAB PO SCH (20:06)
[2018-06-10] MEDS: SERTRALINE HCL 100 MG TABLET PO SCH (20:06)
[2018-06-10 23:11] VITALS: TEMP 97.9
[2018-06-11] MEDS: FENOFIBRATE SCH ×2 (01:23→08:30)
[2018-06-11 06:39] LABS: Basophils # (auto) 0.05 K/uL (0-0.2); Eosinophils # (auto) 0.45 K/uL (0-0.5); Eosinophils % (auto) 8.6 %; Hematocrit (blood only) 41.4 % (42-52); Immature Granulocytes # (auto) 0.01 K/uL (0.00-0.02); Immature Granulocytes % (auto) 0.2 %; Lymphocytes # (auto) 0.98 K/uL (1.2-3.4); Lymphocytes % (auto) 18.8 %; Mean Corpuscular Hgb Conc 31.4 g/dL (32-36); Mean Corpuscular Volume 91.6 fL (80-100); Mean Platelet Volume 11.5 fL (7.4-10.4); Monocytes # (auto) 0.39 K/uL (0.11-0.59); Monocytes % (auto) 7.5 %; Neutrophils # (auto) 3.34 K/uL (1.4-6.5); Neutrophils % (auto) 63.9 %; Platelet Count 132 K/uL (130-400); RDW Coefficient of Variation 16.9 % (11.5-14.5); RDW Standard Deviation 56.9 fL (36.4-46.3); Red Blood Count 4.52 M/uL (4.7-6.1); White Blood Count 5.22 K/uL (4.8-10.8)
[2018-06-11 06:50] LABS: INR 2.5 (0.9-1.1); Prothrombin Time 24.1 Seconds (9.0-12.0)
[2018-06-11 07:22] LABS: BUN Creatinine Ratio 18.4 (10-20); Calcium 8.5 mg/dl (8.5-10.1); Creatinine Clr Calc Pharmacy 55.3 ml/min; Est GFR (African American) 48.5; Est GFR (Non-African American) 41.9; Magnesium 2.6 mg/dl (1.8-2.4); Potassium 3.9 mmol/L (3.5-5.1)
[2018-06-11] MEDS: SPIRONOLACTONE 25 MG TAB PO SCH (08:21)
[2018-06-11] MEDS: HydrALAZINE 10 MG TAB PO SCH (08:21)
[2018-06-11] MEDS: FINASTERIDE 5 MG TAB PO SCH (08:22)
[2018-06-11] MEDS: ISOSORBIDE MONO EXTENDED REL 60 MG TABCR PO SCH (08:22)
[2018-06-11] MEDS: DOCUSATE SODIUM 100 MG CAP PO SCH (08:22)
[2018-06-11] MEDS: INSULIN GLARGINE SOLOSTAR 100 UNITS/ML 3 ML PEN SC SCH (08:23)
[2018-06-11] MEDS: FUROSEMIDE 40 MG in SYRINGE 0 ML IV SCH (08:23)
[2018-06-11] MEDS: INSULIN ASPART 100 UNITS/ML 3 ML PEN SC SCH ×2 (08:28→13:26)
--- NOTE | 2018-06-11 10:55 | Hospitalist Progress Note ---
Date of Service June 11, 2018 Assessment & Plan (1) CHF (congestive heart failure): Acute on chronic systolic/Diastolic CHF Chronic Oxygen Dependency: uses 1 liter supplemental O2 QHS --CXR showed:Cardiomegaly with evidence of congestive failure and interstitial edema. There are small pleural effusions with bibasilar consolidation. --Last ECHO: 05/29/18: EF:30% Started on IV Lasix 60mg BID Oxygen support PRN Cardiology consulted-appreciate input and recommendation Continue home meds: Metoprolol, Imdur, Hydralazine, aldactone AICD placement as per Cardiology recommendations Remains a stable and ambulating well without any difficulty Denies any symptoms this morning and wants to go home Says that Lasix works better than torsemide Abdominal Distention/tightness: H/O liver Mass Prior imaging studies suggestive of Cirrhosis/HCC Check Abd USD for Ascites Consulted GI for Input Bowel regimen to prevent constipation Continue Diuretics (2) Atrial fibrillation: Continue Metoprolol PT/INR:2.5 Continue coumadin Monitor INR Denies any cardiac symptoms of chest pain and/or palpitation Rate is controlled and INR is therapeutic (3) CAD (coronary artery disease): H/O CABG in 2011 H/O LBBB Denies chest pain Continue home medications--Aspirin, BB, Statin, Imdur (4) Diabetes mellitus, type II: Last A1C: well controlled Hold Po meds Utilize ISS, lantus while hospitalized monitor BGs (5) CKD (chronic kidney disease), stage III: Baseline cr 1.7-1.9 Cr: 1.82 Monitor renal function while on diuretics Avoid Nephrotoxic agents as able Creatinine 1.85 as of today 06/10 and 1.5 today on 06/11 (6) Morbid obesity: Life style changes HTN: Stable Continue home meds BPH: No issues Continue home meds DVT Px: On Coumadin Code Status: Full/DNI only-- as per my discussion with patient Likely to be discharged on oral Lasix Awaiting further cardiology evaluation before discharge (7) Liver mass: Associated with cirrhosis Alpha-fetoprotein level is normal during last admission Appreciate GI evaluation and recommended No ascites on ultrasound Has an appointment with fur weigher in [place] Stressed about keeping appointment with the fur weigher attending Subjective He is a 77 years old obese male with significant past medical history significant for pickwickian syndrome, ischemic cardiomyopathy with EF of 30-35% in February 2018 , systolic and diastolic heart failure, ,atrial fibrillation and cirrhosis with the liver mass likely secondary to hepatocellular carcinoma was admitted with acute on chronic systolic and diastolic heart failure. 06/10 The patient was seen and examined in telemetry unit He has been feeling a lot better since admission Has been getting intravenous Lasix and having considerable diuresis Denies any significant symptoms 06/11 The patient was seen and examined in telemetry unit He denies any symptoms of shortness of breath at rest and he has been ambulating well He denies any abdominal pain, nausea and/or vomiting He wants to go home today Physical Exam 2 Vital Signs (Past 24 Hours): Last Vital Signs Temp 36.6 C 06/11/18 07:05 Pulse 85 06/11/18 07:05 Resp 18 06/11/18 07:05 BP 124/82 06/11/18 07:05 Pulse Ox 97 06/11/18 07:05 Physical Exam: No distress at rest Constitutional: WD/WN, vitals as above Eyes: PERRL, conjunctivae normal, anicteric sclerae ENMT: external ear and nose normal, oropharynx normal Neck: trachea midline, no thyromegaly Respiratory: normal respiratory effort; no respiratory distress Auscultation: + diminished lung sounds Cardiovascular: Rate/Rhythm: + abnormal rate and + abnormal rhythm Heart Sounds: normal S1 and normal S2 Gastrointestinal (Abdomen): Inspection/Auscultation: + abdomen distended and normal bowel sounds Percussion/Palpation: abdomen soft; abdomen nontender Neurologic: Alert, awake and oriented x3 Results & Data Laboratory Results Short CBC 06/11/18 Range/Units 06:02 WBC 5.22 (4.8-10.8) K/uL Hgb 13.0 L (14.0-18.0) g/dL Hct 41.4 L (42-52) % Plt Count 132 (130-400) K/uL BMP 06/11/18 06:02 Sodium 137 Potassium 3.9 Chloride 104 Carbon Dioxide 30 BUN 29 H Creatinine 1.58 H Glucose 111 H Calcium 8.5 Medications Administered Current Inpatient Medications Acetaminophen (Tylenol) 650 mg PO Q4H PRN PRN Reason: Pain or Fever Stop: 07/09/18 17:41 Albuterol (Duoneb) 3 ml NEB Q4R PRN PRN Reason: Shortness Of Breath Or Wheezing Stop: 07/09/18 17:41 Aspirin (Ecotrin Ectab) 81 mg PO QDL [facility] Stop: 07/10/18 11:29 Last Admin: 06/10/18 11:47 Dose: 81 mg Atorvastatin Calcium (Lipitor) 80 mg PO HS [facility] Stop: 07/09/18 20:59 Last Admin: 06/10/18 20:06 Dose: 80 mg Dextrose (Dextrose 50%) 25 - 50 ml IV UD PRN; Protocol PRN Reason: Hypoglycemia Protocol Stop: 07/09/18 17:41 Docusate Sodium (Colace) 100 mg PO BID [facility] Stop: 07/09/18 20:59 Last Admin: 06/11/18 08:22 Dose: 100 mg Finasteride (Proscar) 5 mg PO QAM [facility] Stop: 07/10/18 08:59 Last Admin: 06/11/18 08:22 Dose: 5 mg Fluticasone Propionate (Flonase) 2 sprays NA DAILY PRN PRN Reason: Nasal Congestion Stop: 07/09/18 17:41 Glucagon (Glucagen) 1 mg SQ UD PRN; Protocol PRN Reason: Hypoglycemia Protocol Stop: 07/09/18 17:41 Glucose (Glucose 40%) 15 - 30 gm PO UD PRN; Protocol PRN Reason: Hypoglycemia Protocol Stop: 07/09/18 17:41 Glucose (Dex4 Glucose) 4 - 8 tabs PO UD PRN; Protocol PRN Reason: Hypoglycemia Protocol Stop: 07/09/18 17:41 Hydralazine HCl (Apresoline) 10 mg PO BID [facility] Stop: 07/09/18 20:59 Last Admin: 06/11/18 08:21 Dose: 10 mg Furosemide 40 mg/ Syringe 4 mls @ 4 mls/min IV DAILY [facility] Stop: 07/10/18 08:59 Last Admin: 06/11/18 08:23 Dose: 4 mls/min Insulin Aspart (Novolog Flexpen) 0 units SC ACHS [facility] Stop: 07/09/18 17:41 Last Admin: 06/11/18 08:28 Dose: 5 units Insulin Glargine (Lantus Solostar Pen) 7 units SC Q12 [facility] Stop: 07/09/18 20:59 Last Admin: 06/11/18 08:23 Dose: 7 units Isosorbide Mononitrate (Imdur Extended Rel) 60 mg PO QAM [facility] Stop: 07/10/18 08:59 Last Admin: 06/11/18 08:22 Dose: 60 mg Metoprolol Succinate (Toprol Xl) 25 mg PO QDL [facility] Stop: 07/10/18 11:29 Last Admin: 06/10/18 20:06 Dose: 25 mg Miscellaneous (Carbohydrates For Hypoglycemia) 15 - 30 gm PO UD PRN PRN Reason: Hypoglycemia Treatment Stop: 07/09/18 17:41 Miscellaneous (Order Awaiting Action) 1 ea N/A QS [facility] Stop: 07/10/18 00:00 Last Admin: 06/11/18 08:30 Dose: Not Given Nitroglycerin (Nitrostat) 0.4 mg SL UD PRN PRN Reason: Chest Pain Stop: 07/09/18 17:41 Polyethylene Glycol (Miralax Powder Packet) 17 gm PO DAILY PRN PRN Reason: Constipation Stop: 07/09/18 17:41 Sertraline HCl (Zoloft) 100 mg PO HS [facility] Stop: 07/09/18 20:59 Last Admin: 06/10/18 20:06 Dose: 100 mg Spironolactone (Aldactone) 12.5 mg PO DAILY [facility] Stop: 07/10/18 08:59 Last Admin: 06/11/18 08:21 Dose: 12.5 mg Warfarin Sodium (Coumadin) 7.5 mg PO DAILY@1600 [facility] Stop: 07/09/18 17:41 Last Admin: 06/10/18 16:45 Dose: 7.5 mg _ (1) CHF (congestive heart failure) Heart failure chronicity: acute on chronic Heart failure type: unspecified Qualified Code(s): I50.9 - Heart failure, unspecified (2) Atrial fibrillation Atrial fibrillation type: chronic Qualified Code(s): I48.2 - Chronic atrial fibrillation
[2018-06-11] MEDS: ASPIRIN 81 MG ECTAB PO SCH (11:31)
[2018-06-11 12:04] VITALS: PULSE 69; O2SAT 93
[2018-06-11 14:42] VITALS: BP 100/58
[2018-06-11] MEDS: WARFARIN SOD 7.5 MG TAB PO SCH (15:06)
--- NOTE | 2018-06-11 15:09 | Cardiology Progress Note ---
Date of Service June 11, 2018 Assessment & Plan (1) Acute on chronic systolic (congestive) heart failure: (2) Ischemic cardiomyopathy: Creatinine trending downward. Patient appears euvolemic to mildly intravascularly dry at this time. He will restart torsemide 40 mg in the morning, 20 mg in the evening. Instructed to proceed with ICD implantation on June 14. He will continue diuretic therapy uninterrupted at this time. He will hold Coumadin as previously instructed prior to ICD implantation. Continue to monitor daily weights. Instructed to take an additional 20 mg of torsemide if weight increases more than 2 pounds in a 48-hour period, or 5 pounds in 1 week. Encouraged to use stool softeners and laxatives sparingly to prevent further episodes of constipation which have also induced abdominal bloating. Sodium restriction advised. All questions answered to patient and his satisfaction. We will see him back for close follow-up in the heart failure clinic in 1-2 weeks. (3) Atrial fibrillation: Rate controlled and appropriately anticoagulated with Coumadin. (4) Bundle branch block, left: Scheduled for biventricular ICD implantation. (5) Liver mass: Appreciate gastroenterology input. Patient scheduled to follow-up with her pathology in early June. Subjective Patient seen and examined at the bedside. No chest discomfort or unusual shortness of breath. Rate controlled atrial fibrillation on telemetry. Creatinine has trended downward. Denies orthopnea or PND. No recurrent edema. is present at bedside. She offers no additional concerns/complaints at this time. Review of Systems All systems reviewed & are unremarkable except as noted in HPI & below Physical Exam 2 Vital Signs (Past 24 Hours): Last Vital Signs Temp 36.6 C 06/11/18 14:38 Pulse 69 06/11/18 14:38 Resp 18 06/11/18 14:38 BP 100/58 L 06/11/18 14:38 Pulse Ox 93 06/11/18 14:38 Physical Exam: General: NAD, AAO x3, well nourished. Obese. HEENT: Normocephalic. Atraumatic. Conjunctiva pink, no scleral icterus. Neck: No carotid bruits, the carotid upstrokes are brisk. No JVD. No HJR Heart: Irregular rhythm. Normal S-1 and S-2 no S-3. No murmurs or rub appreciated. PMI is not displaced. No RV heave. Lungs: Clear bilateral without rales , rhonchi, or wheeze. Abdomen: Normal bowel sounds. Soft. Nontender. No masses or organomegaly. No abdominal bruits. Extremities: No clubbing, cyanosis, or edema. Pulses: radial=2/4,posterior tibial=2/4. Neuro: Cranial nerves grossly intact. No focal motor deficit. _ (1) Atrial fibrillation Atrial fibrillation type: chronic Qualified Code(s): I48.2 - Chronic atrial fibrillation
--- NOTE | 2018-06-12 08:08 | Discharge Summary ---
Date of Service June 12, 2018 Admission HPI Per Admitting Provider 77-year-old male who presented to the emergency room with dyspnea thought to be related to exacerbation of his underlying congestive heart failure. He was recently admitted from 05/25/18 until 05/30/18 for significant volume overload and diuresed appx 20lb of weight. His heart failure is signficant enough and is scheduled to have a biventricular pacemaker AICD placed with Dr Walker at [facility] In Feb he had a CT scan was performed and showed a suspicious mass in the left hepatic lobe of the liver. In addition there are changes that are suggestive of underlying cirrhosis. This was the first time he was told he had concerning features of cirrhosis. He has a concerning LLL lesion for an HCC and has follow up scheduled with hepatology in [place] for consideration of treatment on 07/03/2018. He notes that his complaints of dyspnea are very similar to his most recent hospitalization. He denies any GI bleeding, confusion or other issues. MRI 02/2018 FINDINGS: There is no biliary ductal dilatation status post cholecystectomy. No common bile duct calculi are identified. Course and caliber of the main pancreatic duct is normal. 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 The liver is cirrhotic with nodularity of the liver surface and enlargement of the caudate lobe and lateral segment. This exam is moderately compromised by motion artifact. The main, right and left portal veins appear grossly patent. Note is made of a 4.7 x 3.8 cm T2 hyperintense mass within the lateral segment of the liver which corresponds to the lesion shown on CT of February 25, 2018. This demonstrates restricted diffusion. Although suboptimally assessed due to motion artifact, this lesion is slightly hyperintense to the adjacent liver parenchyma on early portal venous phase. Washout is noted on the more delayed phase. This is hypointense on the 20 minute delayed phase images. No additional hepatic lesions are identified. The spleen is mildly enlarged. No ascites is noted. No abdominal lymphadenopathy is noted. Small to moderate right and small left pleural effusions are noted. A small hiatal hernia is present. A left renal cyst is noted. There is no hydronephrosis. IMPRESSION: 1. 4.7 x 3.8 cm lateral segment hepatic lesion, suboptimally assessed on this exam due to respiratory motion artifact. Given cirrhosis and the imaging characteristics, this lesion is highly suspicious for hepatocellular carcinoma. 2. Cirrhosis with mild splenomegaly. No ascites. No abdominal lymphadenopathy. 3. Small to moderate right and small left pleural effusions, partially imaged on this exam. Admission Exam Per Admitting Provider Vital Signs (Past 24 Hours): Last Vital Signs Temp 36.4 C L 06/09/18 09:16 Pulse 64 06/09/18 13:00 Resp 18 06/09/18 13:00 BP 128/75 06/09/18 13:00 Pulse Ox 100 06/09/18 13:00 Physical Exam: Physical Exam: Vitals signs as noted above General Appearance:Morbidly Obese, no apparent distress Head: normocephalic, Atraumatic Eyes: normal inspection, EOMI, Left eye chronic blurry vision Neck: supple, Trachea midline Respiratory/Chest: Normal breath sounds, basal crackles Cardiovascular: Irregularly Irregular, No murmur Abdomen/GI:Soft, Non tender, +distended, Bowel sounds present Extremities/Musculoskelatal:normal inspection, Trace B/L pedal edema Neurologic/Psych:AAOX3, grossly no focal neurological deficits Skin: normal color, warm, Vertical well healed CABG scar on Chest Principal Diagnosis Shortness of breath-no overt CHF, atrial fibrillate, cirrhosis with hepatic mass Discharge Exam Constitutional WD/WN, vitals as above Eyes PERRL, conjunctivae normal, anicteric sclerae ENMT external ear and nose normal, oropharynx normal Neck trachea midline, no thyromegaly Respiratory normal respiratory effort; no respiratory distress Auscultation: + diminished lung sounds and + crackles (Minimal at the bases) Cardiovascular Rate/Rhythm: + abnormal rate and + abnormal rhythm Heart Sounds: normal S1 and normal S2 Gastrointestinal (Abdomen) Inspection/Auscultation: + abdomen distended and normal bowel sounds Percussion/Palpation: abdomen soft; abdomen nontender Discharge Data Allergies Allergy/AdvReac Type Severity Reaction Status Date / Time grass pollen-perennial rye, Allergy Intermediate SHORTNESS Verified 06/09/18 13: 53 standar OF BREATH ragweed pollen Allergy Intermediate SHORTNESS Verified 06/09/18 13:53 OF BREATH oxycodone AdvReac Mild aggitation Verified 06/09/18 13:53 Consultations 06/09/18 13:11 ED Decision to Admit Stat 06/09/18 17:42 Consult Cardiology Routine Consult Case Management - Discharge Planning Routine Consult Gastroenterology Stat Ordered Studies 06/09/18 17:42 US abdomen limited Routine Hospital Course (1) CHF (congestive heart failure): Acute on chronic systolic/Diastolic CHF Chronic Oxygen Dependency: uses 1 liter supplemental O2 QHS --CXR showed:Cardiomegaly with evidence of congestive failure and interstitial edema. There are small pleural effusions with bibasilar consolidation. --Last ECHO: 05/29/18: EF:30% Started on IV Lasix 60mg BID Oxygen support PRN Cardiology consulted-appreciate input and recommendation Continue home meds: Metoprolol, Imdur, Hydralazine, aldactone AICD placement as per Cardiology recommendations Remains a stable and ambulating well without any difficulty Denies any symptoms this morning and wants to go home Says that Lasix works better than torsemide Abdominal Distention/tightness: H/O liver Mass Prior imaging studies suggestive of Cirrhosis/HCC Check Abd USD for Ascites Consulted GI for Input Bowel regimen to prevent constipation Continue Diuretics (2) Atrial fibrillation: Continue Metoprolol PT/INR:2.5 Continue coumadin Monitor INR Denies any cardiac symptoms of chest pain and/or palpitation Rate is controlled and INR is therapeutic (3) CAD (coronary artery disease): H/O CABG in 2011 H/O LBBB Denies chest pain Continue home medications--Aspirin, BB, Statin, Imdur (4) Diabetes mellitus, type II: Last A1C: well controlled Hold Po meds Utilize ISS, lantus while hospitalized monitor BGs (5) CKD (chronic kidney disease), stage III: Baseline cr 1.7-1.9 Cr: 1.82 Monitor renal function while on diuretics Avoid Nephrotoxic agents as able Creatinine 1.85 as of today 06/10 and 1.5 today on 06/11 (6) Morbid obesity: Life style changes HTN: Stable Continue home meds BPH: No issues Continue home meds DVT Px: On Coumadin Code Status: Full/DNI only-- as per my discussion with patient Likely to be discharged on oral Lasix Awaiting further cardiology evaluation before discharge (7) Liver mass: Associated with cirrhosis Alpha-fetoprotein level is normal during last admission Appreciate GI evaluation and recommended No ascites on ultrasound Has an appointment with amortization clerk in [place] Stressed about keeping appointment with the amortization clerk attending Total Time Total Time Spent Total Time Spent (In Minutes): 40 minutes Total Time Includes: Examination of the Patient, Discharge Planning, Medication Reconciliation and Communication With Other Providers Discharge Plan Discharge Items Patient Disposition: Home - Self-Care Reason For Visit: CHF EXACERBATION Discharge Diagnosis: Shortness of breath-no overt CHF, atrial fibrillate, cirrhosis with hepatic mass Condition: Fair Discharge Goals: Decrease discomfort and Improve function Activity: Resume your previous activity Non-emergency contact: Primary Care Provider Call non-emergency contact if: you have any medication questions and your symptoms worsen Follow-up/Referrals: Bryce Matias [Family Provider] - (Please keep appointment with your primary care doctor and also with the auto headlight mechanic.) Diet: Heart Healthy and Low Sodium (2gm) Fluids: 1500ml (6 cups) Addtl Provider Instructions: Take precaution to avoid fall. Keep appointment with Dr. Martinez on the of this month and to follow instructions about medications. Prescriptions: New docusate sodium 100 mg Capsule 100 mg PO BID 30 Days Qty: 60 RF: 0 Continue atorvastatin 80 mg Tablet 80 mg PO HS RF: 0 sertraline 100 mg Tablet 100 mg PO HS RF: 0 warfarin 2.5 mg Tablet 2.5 mg PO UD RF: 0 fenofibrate micronized 67 mg Capsule 67 mg PO QAM RF: 0 aspirin [Aspir-Low] 81 mg Tablet,Delayed Release (Dr/Ec) 81 mg PO QDL RF: 0 nitroglycerin 0.4 mg Tablet, Sublingual 0.4 mg Sublingual DIRECTED PRN (Reason: Chest Pain) RF: 0 metoprolol succinate 25 mg tablet extended release 24 hr 25 mg PO QDL RF: 0 fluticasone [Flonase Allergy Relief] 50 mcg/actuation [place],Suspension 2 spray INTRANASAL DAILY PRN (Reason: Nasal Congestion) RF: 0 finasteride 5 mg Tablet 5 mg PO QAM RF: 0 albuterol sulfate [Ventolin HFA] 90 mcg/actuation Hfa Aerosol Inhaler 2 puff INHALATION Q6H PRN (Reason: Shortness Of Breath Or Wheezing) RF: 0 hydralazine 10 mg tablet 10 mg PO BID RF: 0 torsemide 20 mg tablet 40 mg PO QAM RF: 0 glipizide 5 mg tablet extended release 24hr 5 mg PO QDL RF: 0 isosorbide mononitrate 60 mg tablet extended release 24 hr 60 mg PO QAM RF: 0 spironolactone 25 mg Tablet 12.5 mg PO DAILY 30 Days Qty: 15 RF: 0 torsemide 20 mg tablet 20 mg PO UD Qty: 0 RF: 0 Stand-Alone Forms: [facility], [facility] Discharge Orders: Discharge Order (Routine); Ordered 06/11/18 Ordered By: Aryan Joyce Admission Data Admit Date/Time: 06/09/18 14:46 Attending Provider: Aryan Joyce Admit Provider: Tod Mack Primary Care Provider: Derrell Choudhury Other Providers: Tod Mack ; Praful Avila ; Anival Kelly Service: Telemetry Other Interventions: Discharge Summary Assessment (RN) Last Done: 06/11/18 14:38 DC Date/Time DO NOT enter until pt leaves facility: 06/11/18 15:52
== END 2018-06-11 15:52 | disposition home or self-care (01) | DRG 291 ==
LOC: ED 09:07 → 2S 14:46
DX: I25.5 Ischemic cardiomyopathy; Z79.01 Long term (current) use of anticoagulants; E66.01 Morbid (severe) obesity due to excess calories; N18.3 Chronic kidney disease, stage 3 (moderate); E11.22 Type 2 diabetes mellitus with diabetic chronic kidney disease; Z99.81 Dependence on supplemental oxygen; E78.5 Hyperlipidemia, unspecified; I50.43 Acute on chronic combined systolic (congestive) and diastolic (congestive) heart failure; N40.0 Benign prostatic hyperplasia without lower urinary tract symptoms; R16.0 Hepatomegaly, not elsewhere classified; Z79.899 Other long term (current) drug therapy; Z79.82 Long term (current) use of aspirin; I48.2 Chronic atrial fibrillation; I13.0 Hypertensive heart and chronic kidney disease with heart failure and stage 1 through stage 4 chronic kidney disease, or unspecified chronic kidney disease; Z79.84 Long term (current) use of oral hypoglycemic drugs; K74.60 Unspecified cirrhosis of liver; F32.9 Major depressive disorder, single episode, unspecified; Z68.38 Body mass index [BMI] 38.0-38.9, adult; I25.10 Atherosclerotic heart disease of native coronary artery without angina pectoris

== ENCOUNTER 2018-06-14 06:08 | Observation (INO) ==
--- NOTE | 2018-06-08 09:14 | Anesthesiology Consultation ---
Date of Service June 08, 2018 Patient was admitted to [facility] from 05/25-05/30 with acute on chronic systolic CHF exacerbation. He did improve significantly with diuresis. Assessment & Plan (1) Encounter for pre-operative examination: Chart Review Chart Review: Acceptable Risk for Surgery (Patient discharged euvolemic on . His CHF appears tenuous. Will need to assess his volume status on day of procedure before proceeding.) and Patient NOT seen in Pre Admission Testing Consults Requested none History Surgery Operation Date: 06/14/18 08:00 Proposed Procedures p ICD Biventricular Implant with Anesthesia - Gail Walker, Height/Weight Height: 6 ft Weight: 131.542 kg Allergies Allergy/AdvReac Type Severity Reaction Status Date / Time grass pollen-perennial rye, Allergy Intermediate SHORTNESS Verified 06/05/18 15: 39 standar OF BREATH ragweed pollen Allergy Intermediate SHORTNESS Verified 06/05/18 15:39 OF BREATH oxycodone AdvReac Mild aggitation Verified 06/05/18 15:39 Medications Home Medications Medication Instructions Recorded Confirmed Last Taken albuterol sulfate [Ventolin HFA] 2 puff INHALATION Q6H PRN 02/25/18 06/05/18 aspirin [Aspir-Low] 81 mg PO QDL 02/25/18 06/05/18 05/24/18 atorvastatin 80 mg PO HS 02/25/18 06/05/18 05/24/18 fenofibrate micronized 67 mg PO QAM 02/25/18 06/05/18 05/24/18 finasteride 5 mg PO QAM 02/25/18 06/05/18 05/24/18 fluticasone [Flonase Allergy 2 spray INTRANASAL DAILY PRN 02/25/18 06/05/1805/02 Relief] metoprolol succinate 25 mg PO QDL 02/25/18 06/05/18 05/24/18 nitroglycerin 0.4 mg SUBLINGUAL DIRECTED 02/25/18 06/05/18 Unknown sertraline 100 mg PO HS 02/25/18 06/05/18 05/24/18 warfarin 2.5 mg PO UD 02/25/18 06/05/18 05/24/18 17:00 glipizide 5 mg PO QDL 05/25/18 06/05/18 05/24/18 hydralazine 10 mg PO BID 05/25/18 06/05/18 05/24/18 17:00 isosorbide mononitrate 60 mg PO QAM 05/25/18 06/05/18 05/24/18 torsemide 40 mg PO QAM 05/25/18 06/05/18 05/24/18 spironolactone 12.5 mg PO DAILY 30 Days #15 tab 05/29/18 06/05/18 Unknown torsemide 20 mg PO UD #0 tab 05/29/18 06/05/18 05/24/18 17:00 Social History Smoking Status: Never smoker Hx Alcohol Use: No Hx Substance Use: No Testing Electrocardiogram Date: 05/27/18 Findings: + AFIB @ (67) and + LBBB Laboratory Results Laboratory Tests 05/25/18 05/27/18 05/28/18 08:25 08:13 07:14 WBC 7.14 Hgb 13.4 L Hct 42.6 Plt Count 139 PT 15.8 H INR 1.6 H APTT 40.0 H Sodium Potassium Chloride Carbon Dioxide BUN Creatinine Glucose 05/29/18 06:21 WBC Hgb Hct Plt Count PT INR APTT Sodium 139 Potassium 3.4 L Chloride 101 Carbon Dioxide 32 BUN 37 H Creatinine 1.52 H Glucose 123 H
--- NOTE | 2018-06-12 08:00 | Discharge Summary ---
Date of Service June 12, 2018 Admission HPI Per Admitting Provider Chief Complaint: Shortness of Breath Primary Care Provider: Derrell Choudhury DO Patient is a 77-year-old male with past medical history of chronic Systolic/ diastolic CHF, ischemic cardiomyopathy, afib, DM II, CAD S/P CABG, Chronic LBBB , CKD III, HTN, dyslipidemia, morbid obesity, BPH, Hepatic mass and other problems presents with history of worsening shortness of breath on minimal exertion, weight gain, orthopnea, PND and abdominal distention/tightness. Patient was recently discharged from [facility] after being treated for CHF exacerbation. Patient and his family reports that patient gained 4 pounds in last 2 days and has been feeling more SOB and has been using more oxygen. He increased his torsemide dose at home--took 100mg for 2 days which did not help. Patient's spouse believes that lasix worked better and since being on Torsemide , his urine output has decreased compared to while on lasix. He reports SOB even with minimal exertion and feels his abdomen is more distended and tight. No worsening of pedal edema. He is planned for AICD placement as per patient's family. Denies any history of chest pain, dizziness, cough, wheezing, headache , change in vision, nausea, vomiting, abdominal pain, diarrhea, dysuria. Admission Exam Per Admitting Provider Vital Signs (Past 24 Hours): Last Vital Signs Temp 36.6 C 06/09/18 23:05 Pulse 59 L 06/09/18 23:05 Resp 06/09/18 23:05 BP 93/58 L 06/09/18 23:05 Pulse Ox 94 06/09/18 23:05 Awake alert oriented x3 no asterixis Heart is regular with a 3 out of 6 systolic murmur Lungs show crackles in the bases Normoactive soft nontender 1+ peripheral edema Principal Diagnosis SOB, Discharge Exam Vital Signs (Past 24 Hours): Last Vital Signs Temp 36.6 C 06/11/18 07:05 Pulse 85 06/11/18 07:05 Resp 18 06/11/18 07:05 BP 124/82 06/11/18 07:05 Pulse Ox 97 06/11/18 07:05 Physical Exam: No distress at rest Constitutional: WD/WN, vitals as above Eyes: PERRL, conjunctivae normal, anicteric sclerae ENMT: external ear and nose normal, oropharynx normal Neck: trachea midline, no thyromegaly Respiratory: normal respiratory effort; no respiratory distress Auscultation: + diminished lung sounds Cardiovascular: Rate/Rhythm: + abnormal rate and + abnormal rhythm Heart Sounds: normal S1 and normal S2 Gastrointestinal (Abdomen): Inspection/Auscultation: + abdomen distended and normal bowel sounds Percussion/Palpation: abdomen soft; abdomen nontender Neurologic: Alert, awake and oriented x3 Discharge Data Allergies Allergy/AdvReac Type Severity Reaction Status Date / Time grass pollen-perennial rye, Allergy Intermediate SHORTNESS Verified 06/09/18 13: 53 standar OF BREATH ragweed pollen Allergy Intermediate SHORTNESS Verified 06/09/18 13:53 OF BREATH oxycodone AdvReac Mild aggitation Verified 06/09/18 13:53 Procedures Performed Operation Date: 06/14/18 08:00 <No data on this case meets the specified criteria> Hospital Course (1) Dyspnea: (1) CHF (congestive heart failure): Acute on chronic systolic/Diastolic CHF Chronic Oxygen Dependency: uses 1 liter supplemental O2 QHS --CXR showed:Cardiomegaly with evidence of congestive failure and interstitial edema. There are small pleural effusions with bibasilar consolidation. --Last ECHO: 05/29/18: EF:30% Started on IV Lasix 60mg BID Oxygen support PRN Cardiology consulted-appreciate input and recommendation Continue home meds: Metoprolol, Imdur, Hydralazine, aldactone AICD placement as per Cardiology recommendations Remains a stable and ambulating well without any difficulty Denies any symptoms this morning and wants to go home Says that Lasix works better than torsemide Abdominal Distention/tightness: H/O liver Mass Prior imaging studies suggestive of Cirrhosis/HCC Check Abd USD for Ascites Consulted GI for Input Bowel regimen to prevent constipation Continue Diuretics (2) Atrial fibrillation: Continue Metoprolol PT/INR:2.5 Continue coumadin Monitor INR Denies any cardiac symptoms of chest pain and/or palpitation Rate is controlled and INR is therapeutic (3) CAD (coronary artery disease): H/O CABG in 2011 H/O LBBB Denies chest pain Continue home medications--Aspirin, BB, Statin, Imdur (4) Diabetes mellitus, type II: Last A1C: well controlled Hold Po meds Utilize ISS, lantus while hospitalized monitor BGs (5) CKD (chronic kidney disease), stage III: Baseline cr 1.7-1.9 Cr: 1.82 Monitor renal function while on diuretics Avoid Nephrotoxic agents as able Creatinine 1.85 as of today 06/10 and 1.5 today on 06/11 (6) Morbid obesity: Life style changes HTN: Stable Continue home meds BPH: No issues Continue home meds DVT Px: On Coumadin Code Status: Full/DNI only-- as per my discussion with patient Likely to be discharged on oral Lasix Awaiting further cardiology evaluation before discharge (7) Liver mass: Associated with cirrhosis Alpha-fetoprotein level is normal during last admission Appreciate GI evaluation and recommended No ascites on ultrasound Has an appointment with ribbon inker in [place] Stressed about keeping appointment with the ribbon inker attending Total Time Total Time Spent Total Time Spent (In Minutes): 40 minutes Total Time Includes: Examination of the Patient, Discharge Planning, Medication Reconciliation and Communication With Other Providers Discharge Plan Discharge Items Reason For Visit: Left Bundle Branch Block Follow-Up/Referrals: Derrell Choudhury DO [Primary Care Provider] - Prescriptions: No Action atorvastatin 80 mg Tablet 80 mg PO HS RF: 0 sertraline 100 mg Tablet 100 mg PO HS RF: 0 warfarin 2.5 mg Tablet 2.5 mg PO UD RF: 0 fenofibrate micronized 67 mg Capsule 67 mg PO QAM RF: 0 aspirin [Aspir-Low] 81 mg Tablet,Delayed Release (Dr/Ec) 81 mg PO QDL RF: 0 nitroglycerin 0.4 mg Tablet, Sublingual 0.4 mg Sublingual DIRECTED PRN (Reason: Chest Pain) RF: 0 metoprolol succinate 25 mg tablet extended release 24 hr 25 mg PO QDL RF: 0 fluticasone [Flonase Allergy Relief] 50 mcg/actuation [place],Suspension 2 spray INTRANASAL DAILY PRN (Reason: Nasal Congestion) RF: 0 finasteride 5 mg Tablet 5 mg PO QAM RF: 0 albuterol sulfate [Ventolin HFA] 90 mcg/actuation Hfa Aerosol Inhaler 2 puff INHALATION Q6H PRN (Reason: Shortness Of Breath Or Wheezing) RF: 0 hydralazine 10 mg tablet 10 mg PO BID RF: 0 torsemide 20 mg tablet 40 mg PO QAM RF: 0 glipizide 5 mg tablet extended release 24hr 5 mg PO QDL RF: 0 isosorbide mononitrate 60 mg tablet extended release 24 hr 60 mg PO QAM RF: 0 spironolactone 25 mg Tablet 12.5 mg PO DAILY 30 Days Qty: 15 RF: 0 torsemide 20 mg tablet 20 mg PO UD Qty: 0 RF: 0 docusate sodium 100 mg Capsule 100 mg PO BID 30 Days Qty: 60 RF: 0 Admission Data Attending Provider: Gail Walker Primary Care Provider: Derrell Choudhury
[~2018-06-14 06:08] MED LIST: CEFAZOLIN 3000MG 65 ML IV SCH; LR 15ML/HR IV SCH; PROPOFOL IV EMULSION 10 MG/ML 100 ML VIAL IV ONE
[2018-06-14] MEDS ORDERED: fentaNYL citrate 100 MCG/2 ML VIAL IV PRN (06:53)
[2018-06-14] MEDS ORDERED: ONDANSETRON INJ 2 MG/ML 2 ML VIAL IV PRN (06:53)
[2018-06-14] MEDS ORDERED: ATROPINE SULFATE 0.1 MG/ML 10ML SYR IV PRN (06:53)
[2018-06-14] MEDS ORDERED: ePHEDrine sulfate 50 MG/ML AMP IV PRN (06:53)
[2018-06-14 07:36] LABS: Partial Thromboplastin Ratio 1.4; Partial Thromboplastin Time 37.2 Seconds (21.0-31.0); Prothrombin Time 28.1 Seconds (9.0-12.0)
[2018-06-14] MEDS ORDERED: BACITRACIN INJ 50,000 UNIT VIAL ONE (07:47)
[2018-06-14] MEDS ORDERED: LIDOCAINE HCL 1% 20 ML VIAL ONE (07:47)
[2018-06-14] MEDS ORDERED: BUPIVACAINE 0.5 % 5 MG/1 ML PF 10ML VIAL ONE (07:47)
--- NOTE | 2018-06-14 07:47 | Anesthesiology Consultation ---
Date of Service June 14, 2018 Assessment & Plan (1) Encounter for pre-operative examination: (2) Encounter for pre-operative examination: Chart Review Chart Review: Acceptable Risk for Surgery and Patient NOT seen in Pre Admission Testing Consults Requested none ASA ASA4 Proposed Anesthesia Anesthesia Type: MAC Risk / Benefits Reviewed With: PT / POA / Parent / Guardian, Accepts Plan and Informed Consent Obtained NPO Date Last Intake of Fluids: 06/13/18 Time Last Intake of Fluids: 22:00 Date Last Intake of Solids: 06/13/18 Time Last Intake of Solids: 20:00 History Surgery Operation Date: 06/14/18 08:00 Proposed Procedures p ICD Biventricular Implant with Anesthesia - Gail Walker, Height/Weight Height: 6 ft Weight: 128.5 kg Allergies Allergy/AdvReac Type Severity Reaction Status Date / Time grass pollen-perennial rye, Allergy Intermediate SHORTNESS Verified 06/14/18 07: 05 standar OF BREATH ragweed pollen Allergy Intermediate SHORTNESS Verified 06/14/18 07:05 OF BREATH oxycodone AdvReac Mild aggitation Verified 06/14/18 07:05 Medications Home Medications Medication Instructions Recorded Confirmed Last Taken albuterol sulfate [Ventolin HFA] 2 puff INHALATION Q6H PRN 02/25/18 06/09/18 aspirin [Aspir-Low] 81 mg PO QDL 02/25/18 06/14/18 06/13/18 12:00 atorvastatin 80 mg PO HS 02/25/18 06/14/18 06/13/18 17:00 fenofibrate micronized 67 mg PO QAM 02/25/18 06/14/18 06/13/18 12:00 finasteride 5 mg PO QAM 02/25/18 06/14/18 06/13/18 12:00 fluticasone [Flonase Allergy 2 spray INTRANASAL DAILY PRN 02/25/18 06/14/18 08:00 Relief] metoprolol succinate 25 mg PO QDL 02/25/18 06/14/18 06/13/18 12:00 nitroglycerin 0.4 mg SUBLINGUAL DIRECTED PRN 02/25/18 06/09/18 Unknown sertraline 100 mg PO 02/25/18 06/14/18 06/13/18 17:00 warfarin 2.5 mg PO UD 02/25/18 06/14/18 06/12/18 17:00 glipizide 5 mg PO QDL 05/25/18 06/14/18 06/13/18 12:00 hydralazine 10 mg PO BID 05/25/18 06/14/18 06/13/18 17:00 isosorbide mononitrate 60 mg PO QAM 05/25/18 06/14/18 06/13/18 12:00 torsemide 40 mg PO QAM 05/25/18 06/14/18 06/12/18 08:00 spironolactone 12.5 mg PO DAILY 30 Days #15 tab 05/29/18 06/14/18 06/13/18 12:00 torsemide 20 mg PO UD #0 tab 05/29/18 06/14/18 06/12/18 17:00 docusate sodium 100 mg PO BID 30 Days #60 cap 06/11/18 06/14/18 06/13/18 10:00 Past Medical History Medical History Pulmonary edema (Acute) Hypoxia (Acute) Bundle branch block, left (Acute) Liver mass (Acute) Fluid overload Acute on chronic systolic (congestive) heart failure DVT prophylaxis Acute respiratory failure with hypoxia Pickwickian syndrome Atrial fibrillation (Chronic) unsure of initial onset (had > 1 year ago per medical record) - on coumadin CAD (coronary artery disease) (Chronic) Ischemic cardiomyopathy (Chronic) Chronic systolic heart failure (Chronic) Chronic diastolic heart failure (Chronic) HTN (hypertension) (Chronic) LBBB (left bundle branch block) (Chronic) Depression (Chronic) Dyslipidemia (Chronic) Diabetes mellitus, type II (Chronic) NIDDM CKD (chronic kidney disease), stage III (Chronic) Anticoagulated on Coumadin (Chronic) Hiatal hernia (Chronic) Morbid obesity (Chronic) Uses hearing aid (Chronic) Congestive heart failure Esophageal varices Fatty liver Glaucoma 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 mitchell History of cardiac cath 2011 [facility] --> CABG - follows w/ dr. mitchell History of esophagogastroduodenoscopy (EGD) History of thoracentesis Past Anesthesia History No Hx of Anesthesia Complications and No Family Hx of Anesthesia Complications History of PONV No Motion Sickness Screening History of Motion Sickness: No Social History Smoking Status: Never smoker Hx Alcohol Use: No Hx Substance Use: No Physical Exam Vital Signs Last Vital Signs Temp 36.4 C L 06/14/18 07:15 Pulse 71 06/14/18 07:15 Resp 20 06/14/18 07:15 BP 128/82 06/14/18 07:15 Pulse Ox 93 06/14/18 07:15 Constitutional + obese ENMT Mouth: + dentition abnormality, + poor dentition and + chipped teeth; no TMJ abnormality Thyromental Distance: < 3.5 Finger Breadths Mallampati Class: III Neck normal visual inspection, + short neck and + thick neck Respiratory normal respiratory effort; no cough Auscultation: + diminished lung sounds Cardiovascular Rate/Rhythm: regular rate; + abnormal rhythm (A fib) Musculoskeletal Spine: normal cervical ROM and no pain with cervical ROM Neurologic moves all extremities Psychiatric Orientation: alert and oriented x 3 Testing Electrocardiogram Date: 05/27/18 Findings: + AFIB @ (67) and + LBBB Laboratory Results PT 28.1 Seconds (9.0-12.0) H 06/14/18 07:14 INR 3.0 (0.9-1.1) H 06/14/18 07:14 APTT 37.2 Seconds (21.0-31.0) H 06/14/18 07:14 06/14/18 07:09 POC Glucose 115 H
[2018-06-14] MEDS ORDERED: fentaNYL citrate 100 MCG/2 ML VIAL ONE ×3 (07:52→10:27)
[2018-06-14] MEDS ORDERED: MIDAZOLAM HCL 1 MG/ML 2ML VIAL ONE ×2 (07:52→08:35)
[2018-06-14] MEDS ORDERED: ePHEDrine sulfate 50 MG/ML SYR ONE (07:52)
[2018-06-14] MEDS ORDERED: LIDOCAINE HCL 2% 2 ML VIAL/AMP(20MG/ML) INFIL ONE (07:52)
[2018-06-14] MEDS ORDERED: PHENYLEPHRINE 100MCG/ML 5ML SYR ONE (07:52)
[2018-06-14] MEDS ORDERED: PROPOFOL IV EMULSION 10 MG/ML 20 ML VIAL IV ONE (07:52)
--- NOTE | 2018-06-14 07:55 | History & Physical Bridge Note ---
Date of Service June 14, 2018 History & Physical Bridge Note I have examined the patient, reviewed the History & Physical and in the interval since the performance of the History & Physical I have noted the following changes of clinical significance: no changes noted
[2018-06-14] MEDS ORDERED: METOPROLOL TARTRATE 1 MG/ML VIAL IV ONE (08:42)
--- NOTE | 2018-06-14 12:16 | Operative Report ---
Post Operative Report Pre & Post Diagnosis ICM, Chronic systolic HF NYHA Class III, LBBB Operation Date: 06/14/18 08:00 <No data on this case meets the specified criteria> Procedure Operation Date: 06/14/18 08:00 Actual Procedures p ICD Insertion Single or Dual(Left) - DO julita Jones Lead LV (No Priopr Implant)(Left) - DO julita Jones Venogram, Unilateral(Not Applicable) - Gail Walker DO Surgeon Gail Walker DO Production Finisher none Estimated Blood Loss 250 Findings Consistent with Post-Op Diagnosis Specimens none Description of Procedure see official report I attest to the content of the Intraoperative Record and any orders documented therein. Any exceptions are noted below.
--- NOTE | 2018-06-14 12:39 | Anesthesiology Progress Note ---
Date of Service June 14, 2018 Anesthesia Post Procedure Vital Signs Vital Signs: Temp Pulse Resp BP Pulse Ox 06/14/18 12:25 76 16 111/68 97 06/14/18 12:15 77 16 108/69 97 06/14/18 12:05 36.4 C L 78 16 118/72 97 06/14/18 07:15 36.4 C L 71 20 128/82 93 Notes Mental Status: alert / awake / arousable and participated in evaluation Patient Amnestic to Procedure: Yes Nausea / Vomiting: adequately controlled Pain: adequately controlled Airway Patency, RR, SpO2: stable & adequate BP & HR: stable & adequate Hydration State: stable & adequate Anesthetic Complications: no major complications apparent and Pt Satisfied with anesthetic care
[2018-06-14] MEDS ORDERED: ACETAMINOPHEN 325 MG TAB PO PRN (12:59)
[2018-06-14] MEDS ORDERED: NITROGLYCERIN SL 0.4 MG/TAB TAB SL PRN (13:01)
[2018-06-14] MEDS ORDERED: FLUTICASONE PROPIONATE NA SPR 16 GM BTL PRN (13:01)
[2018-06-14] MEDS ORDERED: ALBUTEROL HFA 8 GM INHALER INH PRN (13:01)
--- NOTE | 2018-06-14 13:11 | Discharge Summary ---
Date of Service June 14, 2018 Admission HPI Pt admitted for elective BiV ICD. +SOB/COLE Admission Exam Per Admitting Provider aaox3, NAD NC/AT, EOMI Supple No JVD Nrl S1/S2, No murmur CTA b/l no w/r/r soft nt/nd no LE edema b/l skin intact no focal deficits Principal Diagnosis Principal Diagnosis icm Discharge Exam aaox3, NAD NC/AT, EOMI Supple No JVD Nrl S1/S2, No murmur CTA b/l no w/r/r soft nt/nd no LE edema b/l skin intact no focal deficits left pectoral incision intact, no hematoma mild ecchymosis Discharge Data Allergies Allergy/AdvReac Type Severity Reaction Status Date / Time grass pollen-perennial rye, Allergy Intermediate SHORTNESS Verified 06/14/18 07: 05 standar OF BREATH ragweed pollen Allergy Intermediate SHORTNESS Verified 06/14/18 07:05 OF BREATH oxycodone AdvReac Mild aggitation Verified 06/14/18 07:05 Procedures Performed Operation Date: 06/14/18 08:00 Actual Procedures p ICD Insertion Single or Dual(Left) - DO julita Jones Lead LV (No Priopr Implant)(Left) - DO julita Jones Venogram, Unilateral(Not Applicable) - Gail Walker DO Ordered Studies 06/14/18 07:45 EP Lab Images for PACS ONCE Total Time Total Time Spent Total Time Spent (In Minutes): 30 Total Time Includes: Examination of the Patient, Discharge Planning, Medication Reconciliation and Other Discharge Plan Discharge Items Patient Disposition: Home - Self-Care Reason For Visit: BIV ICD, ICM, LBBB, Chronic systolic HF Discharge Diagnosis: chronic systolic HF-NYHA Class III, LBBB, ICM Condition: Good Discharge Goals: Improve function and Increase independence Activity: As commented below Activity Comment: do not lift the left elbow over the left shoulder for 1 month Lifting: No more than 10 pounds Lifting Comment: do not lift more than 10 pounds with the left arm for 2 weeks Bathing Comment: can shower tuesday06/16/18 Driving/Machine Use: Resume 3 days after discharge Non-emergency contact: Linux Systems Administrator Call non-emergency contact if: you have any medication questions Follow-up/Referrals: Kopinski,Derrell O, DO [Primary Care Provider] - Diet: Heart Healthy and Low Sodium (2gm) Addtl Provider Instructions: none Prescriptions: Continue atorvastatin 80 mg Tablet 80 mg PO HS RF: 0 sertraline 100 mg Tablet 100 mg PO HS RF: 0 warfarin 2.5 mg Tablet 2.5 mg PO UD RF: 0 fenofibrate micronized 67 mg Capsule 67 mg PO QAM RF: 0 aspirin [Aspir-Low] 81 mg Tablet,Delayed Release (Dr/Ec) 81 mg PO QDL RF: 0 nitroglycerin 0.4 mg Tablet, Sublingual 0.4 mg Sublingual DIRECTED PRN (Reason: Chest Pain) RF: 0 metoprolol succinate 25 mg tablet extended release 24 hr 25 mg PO QDL RF: 0 fluticasone [Flonase Allergy Relief] 50 mcg/actuation [place],Suspension 2 spray INTRANASAL DAILY PRN (Reason: Nasal Congestion) RF: 0 finasteride 5 mg Tablet 5 mg PO QAM RF: 0 albuterol sulfate [Ventolin HFA] 90 mcg/actuation Hfa Aerosol Inhaler 2 puff INHALATION Q6H PRN (Reason: Shortness Of Breath Or Wheezing) RF: 0 hydralazine 10 mg tablet 10 mg PO BID RF: 0 torsemide 20 mg tablet 40 mg PO QAM RF: 0 glipizide 5 mg tablet extended release 24hr 5 mg PO QDL RF: 0 isosorbide mononitrate 60 mg tablet extended release 24 hr 60 mg PO QAM RF: 0 spironolactone 25 mg Tablet 12.5 mg PO DAILY 30 Days Qty: 15 RF: 0 torsemide 20 mg tablet 20 mg PO UD Qty: 0 RF: 0 docusate sodium 100 mg Capsule 100 mg PO BID 30 Days Qty: 60 RF: 0 Stand-Alone Forms: [facility] Discharge Orders: Discharge Order (Routine); Ordered 06/15/18 Ordered By: Gail Walker Admission Data Admit Date/Time: 06/14/18 10:05 Attending Provider: Gail Walker Admit Provider: Gail Walker Primary Care Provider: Derrell Choudhury Service: Telemetry
[2018-06-14] MEDS ORDERED: TORSEMIDE 20 MG TAB PO SCH (15:00)
[2018-06-14] MEDS ORDERED: WARFARIN SOD 7.5 MG TAB PO SCH (16:00)
[2018-06-14] MEDS ORDERED: ATORVASTATIN 40 MG TAB PO SCH (21:00)
[2018-06-14] MEDS ORDERED: SERTRALINE HCL 100 MG TABLET PO SCH (21:00)
[2018-06-14] MEDS: HydrALAZINE 10 MG TAB PO SCH (21:46)
[2018-06-14] MEDS: DOCUSATE SODIUM 100 MG CAP PO SCH (21:47)
[2018-06-15 06:04] LABS: Basophils # (auto) 0.04 K/uL (0-0.2); Basophils % (auto) 0.6 %; Eosinophils # (auto) 0.34 K/uL (0-0.5); Eosinophils % (auto) 5.4 %; Hematocrit (blood only) 34.7 % (42-52); Hemoglobin 11.3 g/dL (14.0-18.0); Immature Granulocytes # (auto) 0.01 K/uL (0.00-0.02); Immature Granulocytes % (auto) 0.2 %; Lymphocytes # (auto) 0.56 K/uL (1.2-3.4); Lymphocytes % (auto) 8.8 %; Mean Corpuscular Hgb Conc 32.6 g/dL (32-36); Mean Corpuscular Volume 91.1 fL (80-100); Mean Platelet Volume 10.6 fL (7.4-10.4); Monocytes % (auto) 9.4 %; Neutrophils % (auto) 75.6 %; Platelet Count 106 K/uL (130-400); RDW Standard Deviation 56.8 fL (36.4-46.3); Red Blood Count 3.81 M/uL (4.7-6.1); White Blood Count 6.35 K/uL (4.8-10.8)
[2018-06-15 06:36] LABS: BUN Creatinine Ratio 17.6 (10-20); Calcium 8.1 mg/dl (8.5-10.1); Creatinine Clr Calc Pharmacy 55.3 ml/min; Est GFR (African American) 48.5; Est GFR (Non-African American) 41.9; Potassium 3.8 mmol/L (3.5-5.1)
[2018-06-15 06:38] LABS: Albumin Globulin Ratio 0.7 (0.9-2); Bilirubin,Total 0.8 mg/dl (0.2-1); Globulin 4.2 gm/dl (2.5-4.0); Total Protein 7.2 gm/dl (6.4-8.2)
[2018-06-15 07:07] VITALS: BP 130/80; PULSE 90; TEMP 97.5; O2SAT 91
--- NOTE | 2018-06-15 07:22 | XRay Report ---
XR chest 2V routine HISTORY: Status post pacemaker implant. COMPARISON: Chest 06/09/2018. FINDINGS: There is a left-sided dual-chamber pacemaker/defibrillator. The leads appear intact. No pne umothorax. The heart is mildly enlarged. This has improved. Pulmonary edema has also significantly im proved. Trace bilateral pleural effusions persist. Small peripheral density within the left midlung z one is noted. IMPRESSION: 1. Status post left-sided pacemaker placement. No pneumothorax. 2. Interval improvement in the pulmonary edema and trace bilateral pleural effusions. 3. Small focal peripheral density within left midlung zone. Continued follow-up recommended to ensure resolution. Electronically signed by: Kt Luther M.D. 06/15/2018 7:20 AM
[2018-06-15] MEDS: DOCUSATE SODIUM 100 MG CAP PO SCH (07:46)
[2018-06-15] MEDS: HydrALAZINE 10 MG TAB PO SCH (07:47)
[2018-06-15] MEDS ORDERED: FINASTERIDE 5 MG TAB PO SCH (09:00)
[2018-06-15] MEDS ORDERED: ISOSORBIDE MONO EXTENDED REL 60 MG TABCR PO SCH (09:00)
[2018-06-15] MEDS ORDERED: TORSEMIDE 20 MG TAB PO SCH (09:00)
[2018-06-15] MEDS ORDERED: SPIRONOLACTONE 25 MG TAB PO SCH (09:00)
--- NOTE | 2018-06-15 09:13 | Anesthesiology Progress Note ---
Date of Service June 15, 2018 Anesthesia Post Procedure Vital Signs Vital Signs: Temp Pulse Pulse Resp BP BP Pulse Ox 06/15/18 07:03 36.4 C L 90 17 130/80 91 06/15/18 04:47 36.5 C 85 17 131/80 93 06/14/18 23:36 36.4 C L 88 17 123/73 94 06/14/18 19:08 36.5 C 86 22 105/68 92 06/14/18 18:13 116/49 L 06/14/18 15:44 79 20 101/59 L 95 06/14/18 15:14 77 18 96/61 L 94 06/14/18 15:07 36.4 C L 79 22 93/59 L 95 06/14/18 13:05 78 18 119/70 94 06/14/18 12:50 79 18 106/67 94 06/14/18 12:36 92 06/14/18 12:35 36.5 C 82 18 116/75 88 L 06/14/18 12:25 76 16 111/68 97 06/14/18 12:15 77 16 108/69 97 06/14/18 12:05 36.4 C L 78 16 118/72 97 Notes Mental Status: alert / awake / arousable and participated in evaluation Patient Amnestic to Procedure: Yes Nausea / Vomiting: see Notes below Pain: adequately controlled Airway Patency, RR, SpO2: stable & adequate BP & HR: stable & adequate Hydration State: stable & adequate Anesthetic Complications: no major complications apparent and Pt Satisfied with anesthetic care
[2018-06-15] MEDS ORDERED: METOPROLOL SUCC 25MG EXT REL TAB PO SCH (11:30)
[2018-06-15] MEDS ORDERED: ASPIRIN 81 MG ECTAB PO SCH (11:30)
[2018-06-15] MEDS ORDERED: glipiZIDE 5 MG TAB PO SCH (11:30)
[2018-06-16] MEDS ORDERED: WARFARIN SOD 10 MG TAB PO SCH (16:00)
--- NOTE | 2018-06-21 14:19 | Operative Report ---
DATE OF OPERATION: 06/14/2018 PREOPERATIVE DIAGNOSES: Ischemic cardiomyopathy, left bundle branch block, chronic systolic heart failure [place] [employer] class III. POSTOPERATIVE DIAGNOSES: Ischemic cardiomyopathy, left bundle branch block, chronic systolic heart failure [place] [employer] class III. PROCEDURE: Biventricular rate responsive implantable cardiac defibrillator along with peripheral and coronary sinus venogram. SURGEON: Gail Walker DO. TECHNOLOGY INTERNSHIP: None. ANESTHESIA: Monitored anesthetic care administered by Anesthesiology. Please refer to their notes for complete details with a total of 4 mg of Versed, 300 mcg of fentanyl and 850mg of propofol. IV FLUIDS: 200 mL. BLOOD LOSS: 250 mL. URINE OUTPUT: Not applicable. SPECIMENS: None. FINDINGS: See below. DRAINS: None. CONTRAST: 30 mL. INDICATIONS: This is a 77-year-old gentleman with a past medical history for ischemic cardiomyopathy, coronary artery disease, history of CABG in 2011 with a nuclear stress test in 09/2015 that was negative for ischemia, chronic systolic heart failure [place] [employer] class III, left bundle branch block, hypertension lifelong, diabetes, obesity, chronic kidney disease stage III, BPH, thrombocytopenia, pulmonary emphysema. He has persistent atrial fibrillation, on Coumadin. Due to the ischemic cardiomyopathy, left bundle branch block and chronic systolic heart failure, he was recommended a biventricular implantable cardiac defibrillator. CONSENT: Consent was obtained prior to the patient going to Electrophysiology Lab. The patient was informed of the risks, benefits and alternatives to the procedure. Risks include but not limited to sudden cardiac , cardiac arrhythmias, cerebrovascular accident, myocardial infarction, injury to the blood vessels, chamber of the heart, lung, bleeding and infection. The patient understood these risks and agreed to the procedure as planned. DESCRIPTION OF PROCEDURE: The patient was brought into the Electrophysiology Lab in a fasting state. He was connected to continuous cardiac monitoring. A timeout was performed to ensure the patient's identity and procedure correctly. The patient was prepped and draped over the left infraclavicular space in normal surgical standard fashion. Monitored anesthetic care was given throughout the procedure for the patient's comfort level via Anesthesiology. [place] precautions were maintained throughout the procedure. A 10 mL of 1% lidocaine/bupivacaine mixture were given in the left deltopectoral groove. Incision was made in left deltopectoral groove. Blunt dissection was performed down to identify the cephalic vein. The cephalic vein was identified and isolated using 0 silk ties. Then a peripheral venogram was performed using 10 mL of contrast diluted in 10 mL of saline followed by 20 mL flush to identify the axillary vein. Then through an axillary venous access stick was obtained and a guidewire was inserted without any resistance. I then went back to the cephalic vein. I nicked it with an 11 blade and a guidewire was inserted without any resistance. An 8-Georgian sheath was inserted over the guidewire without any resistance. Dilator was removed and a second guidewire was inserted through the 8-Georgian sheath to allow for retained venous access. The sheath was removed and then a 9.5-Georgian sheath was inserted over the L1 guidewire through the cephalic vein. Without any problem or restrictions, the guidewire and dilator removed. The right ventricular defibrillator lead was then advanced into right ventricle and ultimately positioned into the right ventricular apex under fluoroscopic guidance. There was adequate pacing and sensing thresholds. There was no diaphragmatic stimulation in high output pacing. The 9.5-Georgian sheath was peeled away and the lead was fixated to pectoralis muscle using 0 silk suture. I tried to advance a guidewire over the retained venous access in the cephalic vein; however, was not advancing very nicely, so I ended up putting an 8-Georgian sheath in the axillary vein, moving the dilator, putting another guidewire down there for retained venous access and removing the 8-Georgian sheath, flushing it, dilator reinserted over it and then put it over one of the guidewire through the axillary vein. The guidewire and dilator removed and the right atrial pacing lead was advanced into right atrium and positioned into right atrial appendage under fluoroscopic guidance. The patient was in atrial fibrillation. There was adequate sensing of the fib waves. The sheath was then peeled away and lead was fixated to pectoralis muscle using 0 silk suture. We then set up to do the left ventricular lead. A 9.5-Georgian sheath was inserted over the retained guidewire in the axillary vein. Then through that an [email or web address] MPX outer sheath, coronary sinus sheath was advanced into the right atrium over a guidewire. The guidewire and dilator were removed and then the coronary sinus was cannulated using the diagnostic EP coronary sinus Decapolar catheter. The MPX was advanced over that. We did a venogram of the coronary sinus, which identified a nice posterolateral branch. It did have a little bit of a takeoff initially. I had tried just Whisper wiring it and then trying to advance the lead through the MPX through this; however, everything pulled back, so then I tried a Whisper and then an inner 90 and then the MPX out into the branch; however, everything pulled back, so then I swapped out the lead and so I had Whispered the branch one more time, had the inner 90 out pretty far in the branch and then was able to advance the MPX over that a little bit further and then I used a straight left ventricular pacing lead which advance nicely out. There was adequate pacing and sensing thresholds. There was diaphragmatic stimulation at 10 volts; however, none at 5 volts and this was when it was programmed LV, bipolar LV1 to LV2. The Whisper wire was replaced with a stylet and then the inner 90 was put under fluoroscopic guidance followed by the outer MPX sheath, then followed by the outer 9.5-Georgian sheath was peeled away. The lead was then fixated to pectoralis muscle using 0 silk suture. The defibrillator pocket was then created over the pectoralis muscle within the pectoralis fascia using blunt dissection. The pocket was flushed with copious amounts of bacitracin saline wash. There was lot of those backbleeding as his Coumadin levels were on the higher end, so I did have to place a few pursestring with 2-[address] needle around both the cephalic site and the axillary venous site. The pocket was flushed again with bacitracin saline wash and inspected for hemostasis. The defibrillator was then attached to the leads making sure that the pins were in appropriate position, passed the set screw and set screws were all tightened. Defibrillator was then placed in the pocket making sure that the leads were lying flat beneath the device. Vasquez stat was placed in the pocket since the patient is on Coumadin and his INR was on the higher end. The incision was then closed in a 3-layer fashion with 2-0 Vicryl interrupted suture, followed by 3-0 Vicryl interrupted suture, followed by 4-0 Monocryl running stitch and Dermabond was applied. EQUIPMENT: 1. The generator is a [employer]UITY ANALYST-D SureScan [id number], serial number [id number]. 2. Right atrial lead: Medtronic 5076-52 cm, serial number [id number]. 3. Right ventricular lead: Medtronic 6935M-62 cm, serial number [id number]. 4. Left ventricular lead: Medtronic 4398-88 cm, serial number [id number]. INTRAOPERATIVE TESTIN. Right atrial lead fib waves 1.7 millivolts, impedance 682 ohms, no threshold testing as patient is in AFib. 2. Right ventricular lead: R-wave 5.1 millivolts, impedance 119 ohms, threshold 0.4 volts at 0.7 milliamps. 3. Left ventricular lead programmed LV1-LV2 bipolar, impedance 793 ohms, threshold 1.7 volts at 2.1 milliamps. Again, there was diaphragm at 10 volts, but none at 5. FINAL MEASUREMENTS THROUGH THE DEVICE: 1. Right atrial lead: Fib waves 0.5 millivolts, impedance 589 ohms. 2. Right ventricular lead: R waves 3.4 millivolts, impedance 399 ohms, threshold 0.5 volts at 0.4 milliseconds. 3. Left ventricular lead programmed LV2 to LV3, impedance 14 ohms, threshold 1.25 volts at 0.4 milliseconds. 4. RV coil 78 ohms. FINAL PARAMETERS: DDDR 60/130, right atrial and right ventricular amplitude 3.5 volts, pulse width 0.4 milliseconds, sensitivity 0.3 millivolts. Left ventricular amplitude 4 volts, pulse width 0.4 milliseconds. VT monitor 140 beats per minute at 32 detection intervals, a VT zone at 167 beats per minute for 16 detection intervals and a VF zone at 200 beats per minute for 30/40 detection intervals. IMPRESSION: Successful implantation of a biventricular rate responsive implantable cardiac defibrillator secondary to ischemic cardiomyopathy, left bundle branch block, chronic systolic heart failure [place] [employer] class III. PLAN: Monitor the patient overnight, 12-lead ECG, chest x-ray. He is not allowed to lift left elbow or left shoulder for 1 month. He cannot lift more than 10 pounds with the left arm for 2 weeks. He can continue his Coumadin and shower in 2 days. We will leave the pressure dressing on for 2 days. In regards to his atrial fibrillation, it is definitely persistent and the option could be to try to restore sinus rhythm, but he would need antiarrhythmic medicines which is going to be limited as right now he has this liver lesion, so would consider possible amiodarone and cardioversion after he sees [place] liver specialist in a few weeks. 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 He should have a device and wound check in 1 week's time. I attest to the content of the Intraoperative Record and any orders documented therein. Any exceptions are noted below. TERESA
== END 2018-06-15 10:17 | disposition home or self-care (01) ==
LOC: ASU 06:08 → INTOOBSV 10:05 → 2S 10:05
DX: E11.22 Type 2 diabetes mellitus with diabetic chronic kidney disease; Z79.899 Other long term (current) drug therapy; I25.2 Old myocardial infarction; I50.22 Chronic systolic (congestive) heart failure; I25.10 Atherosclerotic heart disease of native coronary artery without angina pectoris; I45.2 Bifascicular block; I44.7 Left bundle-branch block, unspecified; N18.3 Chronic kidney disease, stage 3 (moderate); E66.9 Obesity, unspecified; E78.5 Hyperlipidemia, unspecified; I48.1 Persistent atrial fibrillation; I25.5 Ischemic cardiomyopathy; Z79.82 Long term (current) use of aspirin; I12.9 Hypertensive chronic kidney disease with stage 1 through stage 4 chronic kidney disease, or unspecified chronic kidney disease; Z68.38 Body mass index [BMI] 38.0-38.9, adult; Z88.5 Allergy status to narcotic agent; Z95.1 Presence of aortocoronary bypass graft; Z79.01 Long term (current) use of anticoagulants

== ENCOUNTER 2020-04-04 09:37 | Inpatient (IN) ==
--- OUTSIDE RECORDS SUMMARY | 2020-04-04 09:41 | External Medical Summary | Continuity of Care Document ---
:1940 Author Name Ankit Duran Address Unavailable Unavailable , Care Team Providers Name Role Phone Unavailable Unavailable Unavailable Rafael Duran [place]available [email or web address] Unavailable [email or web address], [email or web address] Unavailable Unavailable Unavailable Unavailable Unavailable Problems Abnormal electrocardiogram (794.31) (R94.31) Hearing loss (389.9) (H91.90) Diabetes mellitus (250.00) (E11.9) Hyperlipidemia (272.4) (E78.5) Dyslipidemia (272.4) (E78.5) Morbid obesity (278.01) (E66.01) Hypertension (401.9) (I10) Depression (311) (F32.9) Benign Prostatic Hypertrophy (600.00) Acute and chronic cholecystitis (575.12) (K81.2) Functional Status Hearing loss Allergies and Adverse Reactions No Known Drug Allergies (Allergy) Medications Multi-Vitamin Oral Tablet , M.D. Refills: 0 Proscar 5 MG Oral Tablet; TAKE 1 TABLET DAILY. , M.D. Refills: 0 Fish Oil 1000 MG Oral Capsule; TAKE 1 CAPSULE DAILY. , M.D. Refills: 0 Aspirin 81 MG TABS; Take 4 tablets daily , M.D. Refills: 0 metFORMIN HCl - 1000 MG Oral Tablet; TAKE 1 TABLET TWI CE DAILY WITH MEALS. Roger Hall Start: 16-Mar-2012 Quantity: 180 Refills: 1 Finasteride 5 MG Oral Tablet; Take 1 tablet daily Amaya Hall Start: 27-Jan-2012 Quantity: 90 Refills: 1 Sertraline HCl - 100 MG Oral Tablet; TAKE 1 TABLET ONC E DAILY. Roger Hall Quantity: 90 Refills: 0 Atorvastatin Calcium 40 MG Oral Tablet; TAKE 1 TABLET DAILY DIRECTED. Roger Hall Quantity: 90 Refills: 1 Lisinopril 10 MG Oral Tablet; TAKE 1 TABLET DAILY. Brooke Friedman Start: 27-Jan-2012 Quantity: 30 Refills: 5 Procedures History of Cholecystectomy Laparoscopic Status: Completed Immunizations Immunizations not documented Social History - Smoking Status Never smoked tobacco Plan of Treatment Planned Observations Planned Goals not documented Results No Known Results Results not documented
[2020-04-04] MEDS ORDERED: CEFEPIME 2,000 MG/20 ML VIAL IV STA (09:49)
[2020-04-04] MEDS ORDERED: SODIUM CHLORIDE 0.9% 500 ML IV SCH (10:00)
--- NOTE | 2020-04-04 10:01 | Emergency Department Note ---
Impression & Plan Change in mental status, Intracranial bleeding, Coagulopathy, Biliary tract cancer ED Provider Note NAME: ISMAEL MCGREGOR AGE: 79 SEX: M : 1940 ARRIVES VIA: Ambulance INFORMANT: [ems] ED PROVIDER(S): [Jarett Pacheco MD] CHIEF COMPLAINT: Confusion HISTORY OF PRESENT ILLNESS: The patient is a 79-year-old male who has biliary cancer. He lives at home. He was last seen around 11 hours ago at 11 PM last evening. Patient has been in baseline health. This morning, he was not as verbal, he was not as talkative, he seemed confused. The ambulance was called. The patient was able to shake his head no when asked if he was in pain. He could not follow any commands. EMS was able to obtain a blood sugar, the value was 111. Of note, the patient's daughter arrived and she states that over a week ago, he fell 2 times. He was somewhat bruised on his extremities from the fall but otherwise seemed okay. No further history is obtainable at this point given the confusion. There is no family at bedside. REVIEW OF SYSTEMS: Unobtainable given his mental state and confusion. PMHx/PSHx: See Below SOCIAL HISTORY: See Below. PHYSICAL EXAM: GENERAL: Patient is in no acute distress. HEENT: Patient has some older blood within the mouth. I cannot identify any lesion at this point that would be the bleeding source. The teeth do seem stable. Mucous membranes are slightly dry. His left pupil is quite large and irregular. The right pupil is small and round. NECK: No stridor, no adenopathy, no meningismus, trachea is midline. LUNGS: Clear to auscultation bilaterally when listening anterior, no wheeze, no rhonchi, breath sounds equal. No respiratory distress. HEART: Without murmurs gallops or rubs, regular rate and rhythm. ABDOMEN: Soft, nontender, bowel sounds positive, no hernias, no peritonitis. EXTREMITIES: No cyanosis. There is mild bilateral pedal edema. There is an older contusion involving the right humerus and forearm. No gross deformity to this extremity and the does not seem to be pain with palpation of the bones or joints. There is a contusion to the posterior aspect of the left bicep, this also appears older. There is no pain to palpate the bones in this area. NEUROLOGIC: Awake, eyes open. I have seen him move his left upper extremity and left lower extremity. I have not witnessed any movement of the right upper or right lower extremity. There is no facial droop appreciated. Patient is basically nonverbal. He does not follow any commands. He cannot grasp my hand when asked. He does seem to withdraw from pain in the left upper extremity and left lower extremity, not the right upper or lower extremity. SKIN: No rash, no jaundice, no diaphoresis. Back: There is no skin breakdown. DIFFERENTIAL DIAGNOSIS: Infection, dehydration, metabolic abnormality, intracranial bleeding, elevated INR, TIA, stroke, sepsis, hypo/hyperglycemia, electrolyte disturbance, anemia, hypoxia, cardiac sources, intracerebral event, toxicologic, neurologic, as well as other pathologies. EMERGENCY DEPARTMENT COURSE/PROCEDURES: ECG: Indication was confusion. The ECG shows a ventricular pacemaker with a rate of 81. There is no ectopy or PVC. No concerning ST elevation. The QTc is 564. Continuous Cardiac Monitoring: An order was placed for continuous cardiac monitoring. The monitor shows a rate of 81 with a ventricular pacemaker. Critical Care Note: I have personally spent 52 minutes of critical care time in the direct management of this patient. This includes bedside care, interpretation of diagnostic studies, and testing, discussion with consultants, patient, and family members, and other required patient management activities. This 52 minutes is in excess of all separately billable procedures. MEDICAL DECISION MAKING: There is no leukocytosis. The patient is anemic, the patient has a history of the same but his value today is lower than baseline. There is a slightly low platelet count at 122. [id number] INR was greater than 8. He was over antic oagulated. There was no significant electrolyte abnormality. Lactic acid level was not elevated making sepsis less likely. There were some liver enzyme elevations. The patient appears to be in a euthyroid state. Urinalysis does not show infection. Coronavirus testing returned negative. Chest film did not show pneumonia or pneumothorax. Some chronic CHF findings were noted. Today's film looks similar to previous films. Brain CT shows an intraparenchymal hemorrhage that extends into the subdural space. No midline shift at this time. On my exam, the patient did not move his right arm or right leg. He appeared to have weakness on this right side. The patient received IV saline, 500 cc. He was given IV vitamin K and IV Kcentra. I did speak with our coagulation provider relations consultant regarding the use of Kcentra. Patient received IV cefepime as empiric antibiotic coverage. I talked to the patient's power of erisa attorney, his daughter. The patient is a DNR. I did discuss the case with neurosurgery at [facility] in [place], . The patient is not a candidate for neurosurgical intervention. His chance of survival is around 1%. He will likely pass away from this catastrophic bleed. I discussed all the issues with the daughter. She is aware that her father will likely from this intracranial bleed. She wants him to be comfortable--currently, the patient seems in no pain or distress. I did speak with case management. The on-call hospitalist has been consulted for comfort care. Past Med/Surg History Medical History Acute on chronic systolic and diastolic heart failure, NYHA class 4 Acute respiratory failure with hypoxia Anticoagulated on Coumadin Atrial fibrillation continue coumadin and toprol; will hold off on starting amiodarone due to findings of a liver mass that is being worked up further [place] [facility] [place] BPH (benign prostatic hyperplasia) Bundle branch block, left CAD (coronary artery disease) CHF (congestive heart failure) Chronic diastolic heart failure Pt underwent elective BIV ICD no complications; monitored overnight and discharged home. Chronic systolic heart failure CKD (chronic kidney disease), stage III Congestive heart failure Depression Diabetes mellitus, type II NIDDM DVT prophylaxis Dyslipidemia Dyspnea Encounter for pre-operative examination Esophageal varices Fatty liver Fluid overload Glaucoma 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 Gout Hiatal hernia History of pleural effusion HTN (hypertension) Hypoxia Ischemic cardiomyopathy Pt underwent elective BIV ICD no complications; monitored overnight and discharged home. LBBB (left bundle branch block) Pt underwent elective BIV ICD no complications; monitored overnight and discharged home. Liver mass Morbid obesity Myocardial Infarction 2011 On home oxygen therapy 1 lpm at night Pickwickian syndrome Pulmonary edema Uses hearing aid Surgical History (Updated 01/15/20 @ 08:04 by Yesenia Moncada RN) History of cardiac cath 2011 - [facility] - [place] --> CABG - follows w/ dr. mitchell History of cataract removal with insertion of prosthetic lens History of cholecystectomy History of coronary artery bypass graft 2011 [place] - 4 vessels - follows w/ dr. mitchell History of esophagogastroduodenoscopy (EGD) History of thoracentesis Family History (Updated 01/15/20 @ 10:25 by Yesenia Moncada RN) Mother , age 80 CVA No problems noted. Father , age 80 aneurysm No problems noted. Sister Cancer breasts cancer Brother , age 75 alzheimers No problems noted. Sister , age 75 Parkinsons No problems noted. Sister , breast cancer age 75 No problems noted. Sister , age 93 unknown No problems noted. Daughter No problems noted. 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 How many Children do You have: 1 Other Information That Helps Us Care for You: No Feels Safe at Home: Yes Safety Concerns: Feels Safe At This Time Childhood Exposure to Second-Hand Smoke: No caffeine: Yes (ice tea 2 glases per coffee in the winter time) during the past year weight has: increased > 10 lbs Dental Care, Regularly: No Physical Activity Frequency: Daily Seatbelt Use: never Sunscreen Use: No Assistive Devices: Cane Allergies Allergies Allergy/AdvReac Type Severity Reaction Status Date / Time grass pollen-perennial rye, Allergy Intermediate SHORTNESS Verified 03/24/20 10:24 standar OF BREATH ragweed pollen Allergy Intermediate SHORTNESS Verified 03/24/20 10:24 OF BREATH oxycodone AdvReac Mild aggitation Verified 03/24/20 10:24 Home Meds Home Medications Medication Instructions Recorded Confirmed aspirin [Aspir-Low] 81 mg PO QDL 02/25/18 04/04/20 atorvastatin 80 mg PO HS 02/25/18 04/04/20 finasteride 5 mg PO QAM 02/25/18 04/04/20 nitroglycerin 0.4 mg SUBLINGUAL DIRECTED PRN 02/25/18 04/04/20 sertraline 100 mg PO HS 02/25/18 04/04/20 hydralazine 10 mg PO BID 05/25/18 04/04/20 isosorbide mononitrate 60 mg PO QAM 05/25/18 04/04/20 albuterol sulfate 90 mcg/actuation 2 puff INHALATION Q4H PRN g 01/15/20 04/04/20 aerosol inhaler colchicine 0.6 mg capsule 0.6 mg PO DAILY 01/15/20 04/04/20 fluticasone propionate 50 2 spray INTRANASAL DAILY 01/15/20 04/04/20 mcg/actuation nasal spray,suspension gabapentin 100 mg capsule 100 mg PO TID 01/15/20 04/04/20 glipizide 5 mg tablet, extended 5 mg PO DAILY tab 01/15/20 04/04/20 release 24 hr iron,carbonyl 65 mg-vitamin C 125 1 tab PO DAILY 01/15/20 04/04/20 mg tablet,delayed release metoprolol succinate 25 mg 25 mg PO DAILY tab 01/15/20 04/04/20 tablet,extended release 24 hr triamcinolone acetonide 0.1 % 1 applic TOPICAL BID 01/15/20 04/04/20 topical cream warfarin 2.5 mg tablet 0 mg PO UD tab 01/15/20 04/04/20 torsemide 20 mg tablet 40 mg PO BID tab 02/18/20 04/04/20 spironolactone 25 mg tablet 12.5 mg PO BID tab 03/10/20 04/04/20 digoxin 125 mcg PO [id number] 04/04/20 04/04/20 ipratropium-albuterol [DuoNeb] 3 ml INHALATION Q6H PRN 04/04/20 04/04/20 Results & Data (ED) Vital Signs Vital Signs - 24 hr 04/04/20 09:56 04/04/20 10:31 04/04/20 11:17 Temperature 36.9 C Temperature Source Oral Pulse Rate 78 Pulse Rate [Left Finger] 69 70 Respiratory Rate 18 18 18 Blood Pressure 118/63 Blood Pressure [Right Arm] 123/65 104/64 Blood Pressure Mean 81 Blood Pressure Mean [Right Arm] 84 77 Pulse Oximetry 91 95 96 Oxygen Delivery Method Room Air Room Air Room Air Sepsis Recent Fever Within 48 Hours No Sepsis New/Unexplained Change in Mental Status No Sepsis Action Taken by Nursing No Action Required Home Medications Current Medication List: was personally reviewed by me Laboratory Data Attestation: I reviewed the patient's lab results. Result diagrams: 04/04/20 10:12 04/04/20 10:12 Lab Results 04/04/20 04/04/20 04/04/20 Range/Units 10:10 10:12 10:12 WBC 4.23 L (4.8-10.8) K/uL RBC 3.26 L (4.7-6.1) M/uL Hgb 10.1 L (14.0-18.0) g/dL POC Hgb (14.0-18.0) g/dl Hct 30.7 L (42-52) % POC Hct (42-52) % MCV 94.2 (80-100) fL MCH 31.0 (25-34) pg MCHC 32.9 (32-36) g/dL RDW Std Deviation 58.8 H (36.4-46.3) fL RDW Coeff of Abhinav 17.4 H (11.5-14.5) % Plt Count 122 L (130-400) K/uL MPV 10.5 H (7.4-10.4) fL Immature Gran % (Auto) 0.2 % Neut % (Auto) 78.6 % Lymph % (Auto) 9.0 % Sunflower % (Auto) 8.0 % Eos % (Auto) 3.5 % Baso % (Auto) 0.7 % Neut # (Auto) 3.32 (1.4-6.5) K/uL Lymph # (Auto) 0.38 L (1.2-3.4) K/uL Sunflower # (Auto) 0.34 (0.11-0.59) K/uL Eos # (Auto) 0.15 (0-0.5) K/uL Baso # (Auto) 0.03 (0-0.2) K/uL Immature Gran # (Auto) 0.01 (0.00-0.02) K/uL PT Cancelled POC INR (0.9-1.1) INR Cancelled APTT Cancelled PTT Ratio Cancelled POC Sodium (135-144) mmol/L Sodium (136-145) mmol/L POC Potassium (3.3-5.0) mmol/L Potassium (3.5-5.1) mmol/L POC Chloride (101-112) mmol/L Chloride (98-107) mmol/L Carbon Dioxide (21-32) mmol/L POC Total CO2 (24-31) mmol/L Anion Gap (3-11) POC Anion Gap (16-25) mmol/L POC BUN (7-18) mg/dl BUN (7-18) mg/dl Creatinine (0.6-1.4) mg/dl POC Creatinine (0.6-1.3) mg/dl Est Cr Clr Drug Dosing ml/min Est GFR ( Amer) Est GFR (Non-Af Amer) BUN/Creatinine Ratio (10-20) Glucose (70-99) mg/dl POC Glucose (other) (70-99) mg/dl Lactate (0.4-2.0) mmol/L Calcium (8.5-10.1) mg/dl POC Ioniz Calcium Gauri (1.12-1.32) mmol/l Magnesium (1.8-2.4) mg/dl Total Bilirubin (0.2-1) mg/dl AST (15-37) U/L ALT (12-78) U/L Alkaline Phosphatase (45-117) U/L Ammonia (11-32) umol/L Total Creatine Kinase (39-308) U/L Troponin I (0-0.045) ng/ml Total Protein (6.4-8.2) gm/dl Albumin (3.4-5.0) gm/dl Globulin (2.5-4.0) gm/dl Albumin/Globulin Ratio (0.9-2) TSH (0.300-4.500) uIu/ml Urine Color Yellow Urine Appearance Clear (Clear) Urine pH 6.5 (4.5-7.5) Ur Specific [place] 1.011 (1.000-1.030) Urine Protein Trace H (Negative) Urine Glucose (UA) Negative (Negative) Urine Ketones Negative (Negative) Urine Blood Trace H (Negative) Urine Nitrite Negative (Negative) Urine Bilirubin Negative (Negative) Urine Urobilinogen Positive H (Negative) Ur Leukocyte Esterase Negative (Negative) Urine WBC (Auto) 1-5 (0-5) /hpf Urine RBC (Auto) 5-10 H (0-4) /hpf U Hyaline Cast (Auto) 5-10 H (0-5) /lpf U Epithel Cells (Auto) >30 H (0-5) /lpf Urine Bacteria (Auto) Negative (Negative) Ur Renal Epithelial Cell Not Reportable SARS-CoV-2 Ag (Rapid) (Negative) 04/04/20 04/04/20 04/04/20 Range/Units 10:12 10:12 10:12 WBC (4.8-10.8) K/uL RBC (4.7-6.1) M/uL Hgb (14.0-18.0) g/dL POC Hgb (14.0-18.0) g/dl Hct (42-52) % POC Hct (42-52) % MCV (80-100) fL MCH (25-34) pg MCHC (32-36) g/dL RDW Std Deviation (36.4-46.3) fL RDW Coeff of Abhinav (11.5-14.5) % Plt Count (130-400) K/uL MPV (7.4-10.4) fL Immature Gran % (Auto) % Neut % (Auto) % Lymph % (Auto) % Sunflower % (Auto) % Eos % (Auto) % Baso % (Auto) % Neut # (Auto) (1.4-6.5) K/uL Lymph # (Auto) (1.2-3.4) K/uL Sunflower # (Auto) (0.11-0.59) K/uL Eos # (Auto) (0-0.5) K/uL Baso # (Auto) (0-0.2) K/uL Immature Gran # (Auto) (0.00-0.02) K/uL PT POC INR (0.9-1.1) INR APTT PTT Ratio POC Sodium (135-144) mmol/L Sodium 140 (136-145) mmol/L POC Potassium (3.3-5.0) mmol/L Potassium 3.8 (3.5-5.1) mmol/L POC Chloride (101-112) mmol/L Chloride 107 (98-107) mmol/L Carbon Dioxide 30 (21-32) mmol/L POC Total CO2 (24-31) mmol/L Anion Gap 3.0 (3-11) POC Anion Gap (16-25) mmol/L POC BUN (7-18) mg/dl BUN 22 H (7-18) mg/dl Creatinine 1.54 H (0.6-1.4) mg/dl POC Creatinine (0.6-1.3) mg/dl Est Cr Clr Drug Dosing 55.4 ml/min Est GFR ( Amer) 49.4 Est GFR (Non-Af Amer) 42.6 BUN/Creatinine Ratio 14.2 (10-20) Glucose 92 (70-99) mg/dl POC Glucose (other) (70-99) mg/dl Lactate 1.4 (0.4-2.0) mmol/L Calcium 8.1 L (8.5-10.1) mg/dl POC Ioniz Calcium Gauri (1.12-1.32) mmol/l Magnesium 2.2 (1.8-2.4) mg/dl Total Bilirubin 2.2 H (0.2-1) mg/dl AST 66 H (15-37) U/L ALT 30 (12-78) U/L Alkaline Phosphatase 194 H (45-117) U/L Ammonia 36.0 H (11-32) umol/L Total Creatine Kinase 333 H (39-308) U/L Troponin I < 0.015 (0-0.045) ng/ml Total Protein 8.0 (6.4-8.2) gm/dl Albumin 2.1 L (3.4-5.0) gm/dl Globulin 5.9 H (2.5-4.0) gm/dl Albumin/Globulin Ratio 0.4 L (0.9-2) TSH 0.686 (0.300-4.500) uIu/ml Urine Color Urine Appearance (Clear) Urine pH (4.5-7.5) Ur Specific [place] (1.000-1.030) Urine Protein (Negative) Urine Glucose (UA) (Negative) Urine Ketones (Negative) Urine Blood (Negative) Urine Nitrite (Negative) Urine Bilirubin (Negative) Urine Urobilinogen (Negative) Ur Leukocyte Esterase (Negative) Urine WBC (Auto) (0-5) /hpf Urine RBC (Auto) (0-4) /hpf U Hyaline Cast (Auto) (0-5) /lpf U Epithel Cells (Auto) (0-5) /lpf Urine Bacteria (Auto) (Negative) Ur Renal Epithelial Cell SARS-CoV-2 Ag (Rapid) (Negative) 04/04/20 04/04/20 04/04/20 Range/Units 10:17 10:21 10:40 WBC (4.8-10.8) K/uL RBC (4.7-6.1) M/uL Hgb (14.0-18.0) g/dL POC Hgb 10.2 L (14.0-18.0) g/dl Hct (42-52) % POC Hct 30 L (42-52) % MCV (80-100) fL MCH (25-34) pg MCHC (32-36) g/dL RDW Std Deviation (36.4-46.3) fL RDW Coeff of Abhinav (11.5-14.5) % Plt Count (130-400) K/uL MPV (7.4-10.4) fL Immature Gran % (Auto) % Neut % (Auto) % Lymph % (Auto) % Sunflower % (Auto) % Eos % (Auto) % Baso % (Auto) % Neut # (Auto) (1.4-6.5) K/uL Lymph # (Auto) (1.2-3.4) K/uL Sunflower # (Auto) (0.11-0.59) K/uL Eos # (Auto) (0-0.5) K/uL Baso # (Auto) (0-0.2) K/uL Immature Gran # (Auto) (0.00-0.02) K/uL PT POC INR > 8.0 H* (0.9-1.1) INR APTT PTT Ratio POC Sodium 141 (135-144) mmol/L Sodium (136-145) mmol/L POC Potassium 3.9 (3.3-5.0) mmol/L Potassium (3.5-5.1) mmol/L POC Chloride 103 (101-112) mmol/L Chloride (98-107) mmol/L Carbon Dioxide (21-32) mmol/L POC Total CO2 25 (24-31) mmol/L Anion Gap (3-11) POC Anion Gap 18.0 (16-25) mmol/L POC BUN 21 H (7-18) mg/dl BUN (7-18) mg/dl Creatinine (0.6-1.4) mg/dl POC Creatinine 1.5 H (0.6-1.3) mg/dl Est Cr Clr Drug Dosing ml/min Est GFR ( Amer) Est GFR (Non-Af Amer) BUN/Creatinine Ratio (10-20) Glucose (70-99) mg/dl POC Glucose (other) 95 (70-99) mg/dl Lactate (0.4-2.0) mmol/L Calcium (8.5-10.1) mg/dl POC Ioniz Calcium Gauri 1.12 (1.12-1.32) mmol/l Magnesium (1.8-2.4) mg/dl Total Bilirubin (0.2-1) mg/dl AST (15-37) U/L ALT (12-78) U/L Alkaline Phosphatase (45-117) U/L Ammonia (11-32) umol/L Total Creatine Kinase (39-308) U/L Troponin I (0-0.045) ng/ml Total Protein (6.4-8.2) gm/dl Albumin (3.4-5.0) gm/dl Globulin (2.5-4.0) gm/dl Albumin/Globulin Ratio (0.9-2) TSH (0.300-4.500) uIu/ml Urine Color Urine Appearance (Clear) Urine pH (4.5-7.5) Ur Specific [place] (1.000-1.030) Urine Protein (Negative) Urine Glucose (UA) (Negative) Urine Ketones (Negative) Urine Blood (Negative) Urine Nitrite (Negative) Urine Bilirubin (Negative) Urine Urobilinogen (Negative) Ur Leukocyte Esterase (Negative) Urine WBC (Auto) (0-5) /hpf Urine RBC (Auto) (0-4) /hpf U Hyaline Cast (Auto) (0-5) /lpf U Epithel Cells (Auto) (0-5) /lpf Urine Bacteria (Auto) (Negative) Ur Renal Epithelial Cell SARS-CoV-2 Ag (Rapid) Negative (Negative) 04/04/20 Range/Units 11:42 WBC (4.8-10.8) K/uL RBC (4.7-6.1) M/uL Hgb (14.0-18.0) g/dL POC Hgb (14.0-18.0) g/dl Hct (42-52) % POC Hct (42-52) % MCV (80-100) fL MCH (25-34) pg MCHC (32-36) g/dL RDW Std Deviation (36.4-46.3) fL RDW Coeff of Abhinav (11.5-14.5) % Plt Count (130-400) K/uL MPV (7.4-10.4) fL Immature Gran % (Auto) % Neut % (Auto) % Lymph % (Auto) % Sunflower % (Auto) % Eos % (Auto) % Baso % (Auto) % Neut # (Auto) (1.4-6.5) K/uL Lymph # (Auto) (1.2-3.4) K/uL Sunflower # (Auto) (0.11-0.59) K/uL Eos # (Auto) (0-0.5) K/uL Baso # (Auto) (0-0.2) K/uL Immature Gran # (Auto) (0.00-0.02) K/uL PT 13.0 H POC INR (0.9-1.1) INR 1.2 H APTT 31.0 PTT Ratio 1.1 POC Sodium (135-144) mmol/L Sodium (136-145) mmol/L POC Potassium (3.3-5.0) mmol/L Potassium (3.5-5.1) mmol/L POC Chloride (101-112) mmol/L Chloride (98-107) mmol/L Carbon Dioxide (21-32) mmol/L POC Total CO2 (24-31) mmol/L Anion Gap (3-11) POC Anion Gap (16-25) mmol/L POC BUN (7-18) mg/dl BUN (7-18) mg/dl Creatinine (0.6-1.4) mg/dl POC Creatinine (0.6-1.3) mg/dl Est Cr Clr Drug Dosing ml/min Est GFR ( Amer) Est GFR (Non-Af Amer) BUN/Creatinine Ratio (10-20) Glucose (70-99) mg/dl POC Glucose (other) (70-99) mg/dl Lactate (0.4-2.0) mmol/L Calcium (8.5-10.1) mg/dl POC Ioniz Calcium Gauri (1.12-1.32) mmol/l Magnesium (1.8-2.4) mg/dl Total Bilirubin (0.2-1) mg/dl AST (15-37) U/L ALT (12-78) U/L Alkaline Phosphatase (45-117) U/L Ammonia (11-32) umol/L Total Creatine Kinase (39-308) U/L Troponin I (0-0.045) ng/ml Total Protein (6.4-8.2) gm/dl Albumin (3.4-5.0) gm/dl Globulin (2.5-4.0) gm/dl Albumin/Globulin Ratio (0.9-2) TSH (0.300-4.500) uIu/ml Urine Color Urine Appearance (Clear) Urine pH (4.5-7.5) Ur Specific [place] (1.000-1.030) Urine Protein (Negative) Urine Glucose (UA) (Negative) Urine Ketones (Negative) Urine Blood (Negative) Urine Nitrite (Negative) Urine Bilirubin (Negative) Urine Urobilinogen (Negative) Ur Leukocyte Esterase (Negative) Urine WBC (Auto) (0-5) /hpf Urine RBC (Auto) (0-4) /hpf U Hyaline Cast (Auto) (0-5) /lpf U Epithel Cells (Auto) (0-5) /lpf Urine Bacteria (Auto) (Negative) Ur Renal Epithelial Cell SARS-CoV-2 Ag (Rapid) (Negative) Administered Medications Discontinued Medications Sodium Chloride (Nss) 500 mls @ 999 mls/hr IV .Q31M CAITLIN Stop: 04/04/20 10:30 Last Infusion: 04/04/20 11:00 Dose: 0 mls/hr Documented by: [id number] Admin: 04/04/20 10:28 Dose: 999 mls/hr Documented by: [id number] Cefepime HCl (Maxipime) 2,000 mg in 20 mls @ 5 mls/min IV NOW STA; Protocol Stop: 04/04/20 09:52 Last Admin: 04/04/20 10:28 Dose: 5 mls/min Documented by: [id number] Phytonadione 10 mg/ Sodium (Chloride) 51 mls @ 102 mls/hr IV ONE ONE Stop: 04/04/20 11:10 Last Infusion: 04/04/20 11:27 Dose: 0 mls/hr Documented by: [id number] Admin: 04/04/20 10:56 Dose: 102 mls/hr Documented by: [id number] Prothrombin Complex Concent ( (Human) 5,000 units/ Syringe) 200 mls @ 10 mls/min IV NOW ONE; Protocol Stop: 04/04/20 11:19 Last Admin: 04/04/20 10:56 Dose: 10 mls/min Documented by: [id number] Imaging Data Radiologist's Impression: HEAD CT NONCONTRAST CT DOSE: 614.27 mGy.cm HISTORY: Weakness. confusion TECHNIQUE: Multiaxial CT images of the head were performed without the use of intravenous contrast. Automated exposure control was utilized for this study. A dose lowering technique was utilized adhering to the principles of ALARA. Comparison: None. Findings: Mild mucosal thickening within the paranasal sinuses. The mastoid air cells are clear. Punctate metallic BB within the right frontal scalp. There is also a punctate metallic density abutting the anterior aspect of the left globe. This finding prohibits the patient from getting a future MRI. The calvarium and skull base are intact. There is a 4.6 cm left high convexity intraparenchymal hematoma. This is located within the left frontal lobe. There are surrounding vasogenic edema. There is a small left parafalcine subdural hematoma. Small fluid levels within the intraperitoneal hematoma consistent with active bleed. No intraventricular hemorrhage identified. Localized mass effect at the left hig h convexity without significant midline shift at this time. Impression: 1. A 4.6 cm left frontal intraparenchymal hematoma at the high convexity with surrounding vasogenic edema. No significant midline shift at this time. There are few small fluid levels within this hematoma consistent with active bleed. 2. Small left parafalcine subdural hematoma. 3. There is also a punctate metallic density abutting the anterior aspect of the left globe. This finding prohibits the patient from getting a future MRI. 4. These findings were discussed with Dr. Pacheco at 10:30 AM on 04/04/2020. XR chest 1V portable CLINICAL HISTORY: weakness COMPARISON STUDY: Chest radiograph June 15, 2018. PET/CT December 31, 2019. FINDINGS: Biventricular pacer/AICD is in place. There are small bilateral pleural effusions. There is no pneumothorax. Moderate cardiomegaly is noted. Interstitial thickening and bilateral opacities favor pulmonary edema. IMPRESSION: 1. Interstitial thickening consistent with pulmonary edema. Airspace opacities also likely reflect pulmonary edema however a superimposed infectious process could appear similar. 2. Small bilateral pleural effusions. Discharge Plan Visit Data Chief Complaint: Confusion ED Provider: Jarett Pacheco Discharge Problem: Change in mental status, Intracranial bleeding, Coagulopathy, Biliary tract cancer Patient Disposition: Admitted As Inpatient Condition: Critical Discharge Instructions Interventions: ED Discharge Assessment Last Done: 04/04/20 14:05 Discharge Problem: Change in mental status Qualifiers: Altered mental status type: disorientation Qualified Code(s): R41.0 - Disorientation, unspecified
[2020-04-04 10:30] LABS: iSTAT Creatinine 1.5 mg/dl (0.6-1.3); iSTAT Hemoglobin 10.2 g/dl (14.0-18.0); iSTAT Ionized Calcium 1.12 mmol/l (1.12-1.32); iSTAT Potassium 3.9 mmol/L (3.3-5.0)
[2020-04-04 10:33] LABS: Basophils # (auto) 0.03 K/uL (0-0.2); Basophils % (auto) 0.7 %; Eosinophils # (auto) 0.15 K/uL (0-0.5); Eosinophils % (auto) 3.5 %; Hematocrit (blood only) 30.7 % (42-52); Hemoglobin 10.1 g/dL (14.0-18.0); Immature Granulocytes # (auto) 0.01 K/uL (0.00-0.02); Immature Granulocytes % (auto) 0.2 %; Lymphocytes # (auto) 0.38 K/uL (1.2-3.4); Mean Corpuscular Hgb Conc 32.9 g/dL (32-36); Mean Corpuscular Volume 94.2 fL (80-100); Mean Platelet Volume 10.5 fL (7.4-10.4); Monocytes # (auto) 0.34 K/uL (0.11-0.59); Neutrophils # (auto) 3.32 K/uL (1.4-6.5); Neutrophils % (auto) 78.6 %; Platelet Count 122 K/uL (130-400); RDW Coefficient of Variation 17.4 % (11.5-14.5); RDW Standard Deviation 58.8 fL (36.4-46.3); Red Blood Count 3.26 M/uL (4.7-6.1); White Blood Count 4.23 K/uL (4.8-10.8)
--- NOTE | 2020-04-04 10:33 | CT Scan Report ---
HEAD CT NONCONTRAST CT DOSE: 614.27 mGy.cm HISTORY: Weakness. confusion TECHNIQUE: Multiaxial CT images of the head were performed without the use of intravenous contrast. A utomated exposure control was utilized for this study. A dose lowering technique was utilized adheri ng to the principles of ALARA. Comparison: None. Findings: Mild mucosal thickening within the paranasal sinuses. The mastoid air cells are clear. [place] metallic BB within the right frontal scalp. There is also a punctate metallic density abutting t he anterior aspect of the left globe. This finding prohibits the patient from getting a future MRI. T he calvarium and skull base are intact. There is a 4.6 cm left high convexity intraparenchymal hemato ma. This is located within the left frontal lobe. There are surrounding vasogenic edema. There is a s mall left parafalcine subdural hematoma. Small fluid levels within the intraperitoneal hematoma consi stent with active bleed. No intraventricular hemorrhage identified. Localized mass effect at the left high convexity without significant midline shift at this time. Impression: 1. A 4.6 cm left frontal intraparenchymal hematoma at the high convexity with surrounding vasogenic e alicia. No significant midline shift at this time. There are few small fluid levels within this hematom a consistent with active bleed. 2. Small left parafalcine subdural hematoma. 3. There is also a punctate metallic density abutting the anterior aspect of the left globe. This fin ding prohibits the patient from getting a future MRI. 4. These findings were discussed with Dr. Pacheco at 10:30 AM on 04/04/2020. ACT 112: Negative or not required by law. Electronically signed by: Kt Luther M.D. 04/04/2020 10:32 AM
[2020-04-04 10:34] LABS: Appearance Urine Clear (Clear); Bacteria Urine Automated Negative (Negative); Bilirubin Urine Negative (Negative); Blood Urine Trace (Negative); Color Urine Yellow; Epithelial Cell Urine Auto >30 /lpf (0-5); Glucose Urine UA Negative (Negative); Ketones Urine Negative (Negative); Leukocyte Esterase Urine Negative (Negative); Nitrite Urine Negative (Negative); Protein Urine Trace (Negative); Specific Gravity Urine 1.011 (1.000-1.030); Urobilinogen Urine Positive (Negative); pH Urine 6.5 (4.5-7.5)
[2020-04-04] MEDS ORDERED: PHYTONADIONE 10 MG in SODIUM CHLORIDE 0.9% 50 ML IV ONE (10:41)
--- NOTE | 2020-04-04 10:48 | Electrocardiogram Report ---
Test Reason : Blood Pressure : / mmHG Vent. Rate : 081 BPM Atrial Rate : 055 BPM P-R Int : 000 ms QRS Dur : 158 ms QT Int : 486 ms P-R-T Axes : 124 -64 110 degrees QTc Int : 564 ms Poor data quality, interpretation may be adversely affected Ventricular-paced rhythm with occasional AV dual-paced complexes Biventricular pacemaker detected Abnormal ECG When compared with ECG of 14-JUN-2018 13:20, Vent. rate has increased BY 2 BPM Confirmed by Min Mcneil ([id number]) on 04/04/2020 10:48:15 AM Referred By: REFERRED SELF Confirmed By:Min Mcneil
[2020-04-04 10:59] LABS: Alanine Aminotransferase 30 U/L (12-78); Albumin Level 2.1 gm/dl (3.4-5.0); Aspartate Aminotransferase 66 U/L (15-37); BUN Creatinine Ratio 14.2 (10-20); Blood Urea Nitrogen 22 mg/dl (7-18); Calcium 8.1 mg/dl (8.5-10.1); Carbon Dioxide 30 mmol/L (21-32); Chloride 107 mmol/L (98-107); Creatinine Clr Calc Pharmacy 55.4 ml/min; Est GFR (African American) 49.4; Est GFR (Non-African American) 42.6; Glucose 92 mg/dl (70-99); Magnesium 2.2 mg/dl (1.8-2.4); Potassium 3.8 mmol/L (3.5-5.1); Sodium 140 mmol/L (136-145)
[2020-04-04] MEDS ORDERED: PROTHROMBIN COMP CONC- KCENTRA 5,000 UNITS in SYRINGE 0 ML IV ONE (11:00)
--- NOTE | 2020-04-04 11:00 | XRay Report ---
XR chest 1V portable CLINICAL HISTORY: weakness COMPARISON STUDY: Chest radiograph June 15, 2018. PET/CT December 31, 2019. FINDINGS: Biventricular pacer/AICD is in place. There are small bilateral pleural effusions. There is no pneumothorax. Moderate cardiomegaly is noted. Interstitial thickening and bilateral opacities fav or pulmonary edema. IMPRESSION: 1. Interstitial thickening consistent with pulmonary edema. Airspace opacities also likely reflect pu lmonary edema however a superimposed infectious process could appear similar. 2. Small bilateral pleural effusions. ACT 112: Negative or not required by law. Electronically signed by: Stan Acosta M.D. 04/04/2020 10:59 AM
[2020-04-04 11:10] LABS: Albumin Globulin Ratio 0.4 (0.9-2); Alkaline Phosphatase 194 U/L (45-117); Bilirubin,Total 2.2 mg/dl (0.2-1); Creatine Kinase 333 U/L (39-308); Globulin 5.9 gm/dl (2.5-4.0); Thyroid Stimulating Hormone 0.686 uIu/ml (0.300-4.500); Troponin I < 0.015 ng/ml (0-0.045)
[2020-04-04 12:02] LABS: INR 1.2 (0.9-1.1); Partial Thromboplastin Ratio 1.1
[2020-04-04] MEDS ORDERED: ATROPINE SULFATE 1% OP SOLN 5 ML BTL SL PRN (14:38)
[2020-04-04] MEDS ORDERED: LORazepam 1 MG/2 ML VIAL IV PRN (14:38)
[2020-04-04 15:19] VITALS: BP 128/71; PULSE 81; TEMP 97.5; O2SAT 92
[2020-04-04] MEDS: MoRPHine SULFATE 4 MG/ML 1 ML CARP\\VIAL IV PRN (17:06)
--- NOTE | 2020-04-04 17:54 | History & Physical Report ---
Date of Service April 04, 2020 Assessment & Plan (1) Comfort measures only status: (2) Intracranial bleeding: -79-year-old medically complex male with PMH DM type II, ischemic cardiomyopathy s/p AICD, EF 30%, CKD stage III, intrahepatic cholangiocarcinoma, LONG, atrial fibrillation anticoagulated on Coumadin, and other problems listed below who presents the ED for evaluation of altered mental status. Head CT shows 4.6 cm left frontal intraparenchymal hematoma at the high convexity with surrounding vasogenic edema. [facility] [place] by ED, very poor prognosis and no intervention was offered. Patient will be admitted for comfort measures only. -As needed morphine, Roxanol, Ativan, SL atropine -Palliative care consult Admission and Anticipated Discharge Date Admission Date: April 04, 2020 History of Present Illness Chief Complaint: Altered mental status Primary Care Provider: Derrell Mitchell, 79-year-old medically complex male with PMH DM type II, ischemic cardiomyopathy s/p AICD, EF 30%, CKD stage III, intrahepatic cholangiocarcinoma, LONG, atrial fibrillation anticoagulated on Coumadin, and other problems listed below who presents the ED for evaluation of altered mental status. Patient's daughter is the bedside who provides some history. She reports that yesterday she noted her father to be very weak and also had some increased confusion. This morning, she found him in bed to be incontinent of urine which is unusual for him. He also had a lot blood coming from his mouth. She reports that he required a lot of assistance to sit up in bed and she noted that he was not moving his right side. Patient was then brought to the ED for further evaluation. In the ED, head CT shows a 4.6 cm left frontal intraparenchymal hematoma at the high convexity with surrounding vasogenic edema. Patient is anticoagulated on Coumadin and INR was noted to be > 8.0. Patient received vitamin K and Kcentra. Neurosurgery at [facility] was contacted who advised that there is a very high mortality rate and no acute intervention will be offered. Patient will be admitted for comfort measures only. Allergies Allergy/AdvReac Type Severity Reaction Status Date / Time grass pollen-perennial rye, Allergy Intermediate SHORTNESS Verified 03/24/20 10:24 standar OF BREATH ragweed pollen Allergy Intermediate SHORTNESS Verified 03/24/20 10:24 OF BREATH oxycodone AdvReac Mild aggitation Verified 03/24/20 10:24 Home Medications Medication Instructions Recorded Confirmed Type aspirin [Aspir-Low] 81 mg PO QDL 02/25/18 04/04/20 History atorvastatin 80 mg PO HS 02/25/18 04/04/20 History finasteride 5 mg PO QAM 02/25/18 04/04/20 History nitroglycerin 0.4 mg SUBLINGUAL DIRECTED PRN 02/25/18 04/04/20 History sertraline 100 mg PO HS 02/25/18 04/04/20 History hydralazine 10 mg PO BID 05/25/18 04/04/20 History isosorbide mononitrate 60 mg PO QAM 05/25/18 04/04/20 History albuterol sulfate 90 mcg/actuation 2 puff INHALATION Q4H PRN g 01/15/20 04/04/20 History aerosol inhaler colchicine 0.6 mg capsule 0.6 mg PO DAILY 01/15/20 04/04/20 History fluticasone propionate 50 2 spray INTRANASAL DAILY 01/15/20 04/04/20 History mcg/actuation nasal spray,suspension gabapentin 100 mg capsule 100 mg PO TID 01/15/20 04/04/20 History glipizide 5 mg tablet, extended 5 mg PO DAILY tab 01/15/20 04/04/20 History release 24 hr iron,carbonyl 65 mg-vitamin C 125 1 tab PO DAILY 01/15/20 04/04/20 History mg tablet,delayed release metoprolol succinate 25 mg 25 mg PO DAILY tab 01/15/20 04/04/20 History tablet,extended release 24 hr triamcinolone acetonide 0.1 % 1 applic TOPICAL BID 01/15/20 04/04/20 History topical cream warfarin 2.5 mg tablet 0 mg PO UD tab 01/15/20 04/04/20 History torsemide 20 mg tablet 40 mg PO BID tab 02/18/20 04/04/20 History spironolactone 25 mg tablet 12.5 mg PO BID tab 03/10/20 04/04/20 History digoxin 125 mcg PO 3XWK 04/04/20 04/04/20 History ipratropium-albuterol [DuoNeb] 3 ml INHALATION Q6H PRN 04/04/20 04/04/20 History Past Med/Surg History Medical History Anticoagulated on Coumadin Atrial fibrillation BPH (benign prostatic hyperplasia) Bundle branch block, left CAD (coronary artery disease) Cholangiocarcinoma (08/21/18) Chronic diastolic heart failure Chronic systolic heart failure CKD (chronic kidney disease), stage III Depression Diabetes mellitus, type II NIDDM Dyslipidemia Esophageal varices Fatty liver Glaucoma 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 Gout Hiatal hernia History of pleural effusion HTN (hypertension) Hypoxia Ischemic cardiomyopathy Morbid obesity Myocardial Infarction 2012 On home oxygen therapy 1 lpm at night Pickwickian syndrome Uses hearing aid Surgical History History of cardiac cath 2011 - [facility] - [place] --> CABG - follows w/ dr. mitchell History of cataract removal with insertion of prosthetic lens History of cholecystectomy History of coronary artery bypass graft [place] - vessels - follows w/ dr. mitchell History of esophagogastroduodenoscopy (EGD) History of thoracentesis Family History Mother , age 80 CVA No problems noted. Father , age 80 aneurysm No problems noted. Sister Cancer breasts cancer Brother , age 75 alzheimers No problems noted. Sister , age 75 Parkinsons No problems noted. Sister , breast cancer age 75 No problems noted. Sister , age 93 unknown No problems noted. Daughter No problems noted. 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 How many Children do You have: 1 Other Information That Helps Us Care for You: No Feels Safe at Home: Yes Safety Concerns: Feels Safe At This Time Childhood Exposure to Second-Hand Smoke: No caffeine: Yes (ice tea 2 glases per coffee in the winter time) during the past year weight has: increased > 10 lbs Dental Care, Regularly: No Physical Activity Frequency: Daily Seatbelt Use: never Sunscreen Use: No Assistive Devices: Cane Review of Systems Review of Systems: Unobtainable due to reduced consciousness Physical Exam Constitutional: WD/WN, vitals as above Cardiovascular: Rate/Rhythm: regular rate and regular rhythm Neurologic: Right side flaccid Psychiatric: Orientation: alert (Attempts to answer questions) Results & Data Results & Data ([facility]) Vital Signs (Past 12 Hours) Vital Signs Temp Pulse Pulse Resp BP BP Pulse Ox 04/04/20 14:41 36.4 C L 81 22 128/71 92 04/04/20 13:46 72 18 150/77 H 95 04/04/20 12:47 74 20 142/80 H 91 04/04/20 11:17 70 18 104/64 96 04/04/20 10:31 69 18 123/65 95 04/04/20 09:56 36.9 C 78 18 118/63 91 Laboratory Results Short CBC 04/04/20 Range/Units 10:12 WBC 4.23 L (4.8-10.8) K/uL Hgb 10.1 L (14.0-18.0) g/dL Hct 30.7 L (42-52) % Plt Count 122 L (130-400) K/uL BMP 04/04/20 10:12 Sodium 140 Potassium 3.8 Chloride 107 Carbon Dioxide 30 BUN 22 H Creatinine 1.54 H Glucose 92 Calcium 8.1 L Cardiac Enzymes 04/04/20 Range/Units 10:12 Total Creatine Kinase 333 H (39-308) U/L Troponin I < 0.015 (0-0.045) ng/ml Liver Function 04/04/20 Range/Units 10:12 Total Bilirubin 2.2 H (0.2-1) mg/dl AST 66 H (15-37) U/L ALT 30 (12-78) U/L Alkaline Phosphatase 194 H (45-117) U/L Albumin 2.1 L (3.4-5.0) gm/dl Urine 04/04/20 Range/Units 10:10 Urine Color Yellow Urine Appearance Clear (Clear) Urine pH 6.5 (4.5-7.5) Ur Specific [place] 1.011 (1.000-1.030) Urine Protein Trace H (Negative) Urine Glucose (UA) Negative (Negative) Diagnostic Findings CXR IMPRESSION: 1. Interstitial thickening consistent with pulmonary edema. Airspace opacities also likely reflect pulmonary edema however a superimposed infectious process could appear similar. 2. Small bilateral pleural effusions. HEAD CT IMPRESSION: 1. A 4.6 cm left frontal intraparenchymal hematoma at the high convexity with surrounding vasogenic edema. No significant midline shift at this time. There are few small fluid levels within this hematoma consistent with active bleed. 2. Small left parafalcine subdural hematoma. 3. There is also a punctate metallic density abutting the anterior aspect of the left globe. This finding prohibits the patient from getting a future MRI. 4. These findings were discussed with Dr. Pacheco at 10:30 AM on 04/04/2020. Code Status & VTE Plan Code Status Patient is a DNR as per my discussion with patient's daughter who is the bedside. VTE Prophylaxis Plan VTE Prophylaxis will be ordered: No Supervising Physician Co-Signing Physician Notes Patient is a 79-year-old male with history of cholangiocarcinoma currently undergoing radiation therapy, Long cirrhosis, atrial fibrillation on chronic anticoagulation with Coumadin, diabetes mellitus, CKD stage III, CHF and other medical problems presents with history of altered mental status. Most of the history is obtained from patient's family and old records. Currently patient unable to provide any history. As per the family, patient was noted to be very weak and has increased confusion since yesterday. She admits that patient had fell at least twice last few days. CT head showed left frontal intraparenchymal hematoma associated vasogenic edema, small left subdural hematoma. Please review HPI for complete details of presentation. Patient received vitamin K, Kcentra in ED. neurosurgery at [facility] was contacted, given comorbidities patient was thought to be at very high risk for mortality for any intervention. Patient's daughter preferred patient to be comfortable and be transitioned to comfort care. On exam patient is morbidly obese, mild distress, normocephalic, alert, awake but not oriented, EOMI, complete neurological exam could not be performed because of the patient's mental status. Lungs--normal breath sounds, clear to auscultation, S1-S2, no audible murmur, mild respiratory distress noted, bilateral lower extremity edema right greater than left. Abdomen soft, nontender, normal bowel sounds. Patient is admitted for conservative management for intracranial hemorrhage. Intracranial hemorrhage secondary to fall, coagulopathy induced by Coumadin. His INR was noted to be 8.0. Palliative care consulted. Comfort measure only. Morphine, Ativan, atropine, Roxanol as needed for comfort. Patient's daughter understands and agrees with current management. Very poor prognosis. I personally reviewed the record. Patient is interviewed and examined at bedside. Patient's care is coordinated with aWnda Blackburn [facility] [facility]. Please refer to the documentation above for details of patient's presentation and for discussion of other issues.
[2020-04-04] MEDS: MoRPHine SULFATE 5 MG/0.25 ML UDP PO PRN (21:13)
[2020-04-05] MEDS: MoRPHine SULFATE 5 MG/0.25 ML UDP PO PRN ×3 (01:30→16:22)
[2020-04-05] MEDS ORDERED: MICONAZOLE NITRATE POWDER 43 GM EXT PRN (04:53)
[2020-04-05] MEDS: MoRPHine SULFATE 4 MG/ML 1 ML CARP\\VIAL IV PRN ×2 (09:31→15:07)
--- NOTE | 2020-04-05 13:20 | Hospitalist Progress Note ---
Date of Service April 05, 2020 Assessment & Plan (1) Comfort measures only status: (2) Intracranial bleeding: - 79 yo male medically complex male with PMH DM type II, ischemic cardiomyopathy s/p AICD, EF 30%, CKD stage III, intrahepatic cholangiocarcinoma, FULLER, atrial fibrillation anticoagulated on Coumadin presents the ED for evaluation of altered mental status. CT head showed 4.6 cm left frontal intraparenchymal hematoma at the high convexity with surrounding vasogenic edema. [facility] [place] consulted by ED, very poor prognosis and no intervention was offered. Family does not want any heroic management and was transition to comfort care only Palliative care consult for goal of care Continue morphine, Roxanol, Ativan, SL atropine Case management notified to provide option for hospice Continue monitor Admission and Anticipated Discharge Date Admission Date: April 04, 2020 Subjective Pt was seen and examined Lying in bed with no distress with daughter at bedside Pt is non verbal today but he was able to open his eyes and turn his head Pt looks comfortable since he just received pain med Physical Exam Physical Exam: General- No acute distress Eyes- PERRL, EOMI, ENT- oropharynx clear Neck- supple, no JVD Lungs- diminished BS Heart- regular rhythm Extremities- move extremities when Neuro- eyes open with right pupil pinpoint and left pupils dilated, able to move his head, able to move his legs when scratching bottom of his feet Skin- warm & dry
--- NOTE | 2020-04-05 17:24 | Communication Note ---
Date of Service: April 05, 2020 note Called from Nurse that pt ceased to breath. Pt was unresponsive with eyes closed No heart sound, no lung sound noted on auscultation No pulse and no tactile stimuli Pupils no reactive to light Time of 16:57 Nurse notified daughter over the phone certificate completed and signed MD Margo
--- NOTE | 2020-04-06 09:22 | Discharge Summary ---
Date of Service April 05, 2020 Admission HPI Per Admitting Provider 79-year-old medically complex male with PMH DM type II, ischemic cardiomyopathy s/p AICD, EF 30%, CKD stage III, intrahepatic cholangiocarcinoma, FULLER, atrial fibrillation anticoagulated on Coumadin, and other problems listed below who presents the ED for evaluation of altered mental status. Patient's daughter is the bedside who provides some history. She reports that yesterday she noted her father to be very weak and also had some increased confusion. This morning, she found him in bed to be incontinent of urine which is unusual for him. He also had a lot blood coming from his mouth. She reports that he required a lot of assistance to sit up in bed and she noted that he was not moving his right side. Patient was then brought to the ED for further evaluation. In the ED, head CT shows a 4.6 cm left frontal intraparenchymal hematoma at the high convexity with surrounding vasogenic edema. Patient is anticoagulated on Coumadin and INR was noted to be > 8.0. Patient received vitamin K and Kcentra. Neurosurgery at [facility] was contacted who advised that there is a very high mortality rate and no acute intervention will be offered. Patient will be admitted for comfort measures only. Admission Exam Per Admitting Provider Constitutional: WD/WN, vitals as above Cardiovascular: regular rate and regular rhythm Neurologic: Right side flaccid Psychiatric: Orientation: alert (Attempts to answer questions) Principal Diagnosis (1) Comfort measures only status: (2) Intracranial bleeding: Discharge Exam Pt was unresponsive with eyes closed No heart sound, no lung sound noted on auscultation No pulse and no tactile stimuli Pupils no reactive to light Discharge Data Allergies Allergy/AdvReac Type Severity Reaction Status Date / Time grass pollen-perennial rye, Allergy Intermediate SHORTNESS Verified 03/24/20 10:24 standar OF BREATH ragweed pollen Allergy Intermediate SHORTNESS Verified 03/24/20 10:24 OF BREATH oxycodone AdvReac Mild aggitation Verified 03/24/20 10:24 Consultations 04/04/20 11:17 ED Decision to Admit Stat 04/04/20 14:38 Consult Palliative Care Routine Ordered Studies 04/04/20 09:49 CT head/brain wo con Stat HEAD CT NONCONTRAST CT DOSE: 614.27 mGy.cm HISTORY: Weakness. confusion TECHNIQUE: Multiaxial CT images of the head were performed without the use of intravenous contrast. Automated exposure control was utilized for this study. A dose lowering technique was utilized adhering to the principles of ALARA. Comparison: None. Findings: Mild mucosal thickening within the paranasal sinuses. The mastoid air cells are clear. Punctate metallic BB within the right frontal scalp. There is also a punctate metallic density abutting the anterior aspect of the left globe. This finding prohibits the patient from getting a future MRI. The calvarium and skull base are intact. There is a 4.6 cm left high convexity intraparenchymal hematoma. This is located within the left frontal lobe. There are surrounding vasogenic edema. There is a small left parafalcine subdural hematoma. Small fluid levels within the intraperitoneal hematoma consistent with active bleed. No intraventricular hemorrhage identified. Localized mass effect at the left high convexity without significant midline shift at this time. Impression: 1. A 4.6 cm left frontal intraparenchymal hematoma at the high convexity with surrounding vasogenic edema. No significant midline shift at this time. There are few small fluid levels within this hematoma consistent with active bleed. 2. Small left parafalcine subdural hematoma. 3. There is also a punctate metallic density abutting the anterior aspect of the left globe. This finding prohibits the patient from getting a future MRI. 4. These findings were discussed with Dr. Pacheco at 10:30 AM on 04/04/2020. ACT 112: Negative or not required by law. Electronically signed by: Kt Luther M.D. 04/04/2020 10:32 AM Dictated: 04/04/20 1024Transcribed: 04/04/20 1024 XR chest 1V portable CLINICAL HISTORY: weakness COMPARISON STUDY: Chest radiograph June 15, 2018. PET/CT December 31, 2019. FINDINGS: Biventricular pacer/AICD is in place. There are small bilateral pleural effusions. There is no pneumothorax. Moderate cardiomegaly is noted. Interstitial thickening and bilateral opacities favor pulmonary edema. IMPRESSION: 1. Interstitial thickening consistent with pulmonary edema. Airspace opacities also likely reflect pulmonary edema however a superimposed infectious process could appear similar. 2. Small bilateral pleural effusions. ACT 112: Negative or not required by law. Electronically signed by: Stan Acosta M.D. 04/04/2020 10:59 AM Dictated: 04/04/20 1057Transcribed: 04/04/20 1057 Hospital Course (1) Comfort measures only status: (2) Intracranial bleeding: - 79 yo male medically complex male with PMH DM type II, ischemic cardiomyopathy s/p AICD, EF 30%, CKD stage III, intrahepatic cholangiocarcinoma, FULLER, atrial fibrillation anticoagulated on Coumadin presents the ED for evaluation of altered mental status. CT head showed 4.6 cm left frontal intraparenchymal hematoma at the high convexity with surrounding vasogenic edema. [facility] [place] by ED, very poor prognosis and no intervention was offered. Family does not want any heroic management and was transition to comfort care only Palliative care consult for goal of care Continue morphine, Roxanol, Ativan, SL atropine Case management notified to provide option for hospice Continue monitor Total Time Total Time Spent Total Time Spent (In Minutes): 20 minutes minutes Total Time Includes: Examination of the Patient, Discharge Planning, Medication Reconciliation, Communication With Other Providers and Other Discharge Plan Discharge Items Patient Disposition:
== END 2020-04-05 18:16 | disposition expired | DRG 86 ==
LOC: ED 09:37 → SUATTDRO 11:49 → 2N 11:49